=== PATIENT | male | born 1985 | race Caucasian/White ===

== ENCOUNTER 2022-07-07 15:38 | Emergency (ER) | payer OTHER, SELFPAY ==
--- NOTE | ~2022-07-07 | XR_ITS ---
EXAMINATION: XR hand RT min 3V INDICATION: Right hand swelling TECHNIQUE: Four views of the right hand are obtained. COMPARISON: None available FINDINGS: There are extensive erosions of the carpals, the metacarpal bases, at the distal first and second metacarpals, the bases of the first and second proximal phalanges, at the distal aspect of the second proximal phalanx, and at the distal aspect of the fourth proximal phalanx. There is a minimal ly displaced transverse fracture at the distal aspect of the fourth proximal phalanx. There is soft t issue swelling surrounding the second and fourth proximal interphalangeal joints. IMPRESSION: 1. 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 2. Acute fracture of the fourth proximal phalanx. Reviewed, dictated and finalized at location F.
[2022-07-07 15:50] VITALS: BP 139/83; PULSE 81; RESP 16; TEMP 36.7; O2SAT 100
--- NOTE | 2022-07-07 16:21 | ED.GENADULT ---
HPI - General Adult General Chief complaint: Extremity Injury, Upper Stated complaint: Finger Pain/Swelling Source: patient Mode of arrival: ambulatory Limitations: no limitations History of Present Illness HPI narrative: Patient presents for evaluation of pain and decreased range of motion in the 5th digit of the right hand. Symptom onset three days ago. he states he has a history of gout and has frequent flares. He recently ran out of his prednisone which he states he takes daily. He is still taking allopurinol and colchicine. He states pain is 8/10 in severity. He is right hand dominant. No paresthesias. He has chronic deformities and scarring noted to several digits of his hands bilaterally. He states he previously received hydrocodone but is no longer receiving it. Related Data Home Medications Medication Instructions Recorded Confirmed allopurinol 100 mg tablet mg 07/07/22 folic acid 1 mg tablet 07/07/22 indomethacin 50 mg capsule mg 07/07/22 prednisone 20 mg tablet mg 07/07/22 Allergies Allergy/AdvReac Type Severity Reaction Status Date / Time No Known Allergies Allergy Unverified 10/23/17 13:14 Review of Systems Review of Systems: CONSTITUTIONAL: Denies fever, chills, or sweats. EYES: Denies visual changes, redness, or discharge. ENT: Denies rhinorrhea, congestion, sore throat, or otalgia. CARDIOVASCULAR: Denies chest pain, palpitations, or edema. RESPIRATORY: Denies cough or dyspnea. GASTROINTESTINAL: Denies abdominal pain, nausea, vomiting, or diarrhea. GENITOURINARY: Denies dysuria or hematuria. SKIN: Denies rash or itching. MUSCULOSKELETAL: Reports pain and decreased range of motion in multiple digits of bilateral hands, most notable in the 5th digit of the right hand. NEUROLOGIC: Denies headache, numbness, dizziness, or weakness. PSYCHIATRIC: Denies anxiety or depression. FOR[facility]LY [facility] Past Medical History Medical History (Updated 07/07/22 @ 17:01 by JUAN Durbin, MAXX) Gout Proximal phalanx fracture of finger Surgical History Surgical History H/O hand surgery Family History Family History Mother Family history non-contributory Social History Social History Smoking packs per day: 0.5 Smoking cigarettes per day: 10.0 Smoking status: Current every day smoker Alcohol intake: never Substance use: never Living arrangements: with family Gender identity (if verbalized by the patient): Male Spiritual care concerns: No Exam Narrative: GENERAL: Well-appearing, well-nourished, and in no acute distress. HEAD: Normocephalic, atraumatic. EYES: PERRLA and EOMI. ENT: Nares clear, no rhinorrhea or epistaxis. Mucous membranes moist. Oropharynx without tonsillar hypertrophy exudate or other lesions. Bilateral TMs pearly key nonbulging NECK: Supple. No adenopathy or masses. No carotid bruits or JVD CHEST: Clear to auscultation. No respiratory distress. No wheezes rales or rhonchi HEART: Regular rate and rhythm. No murmur heard. Normal peripheral pulses. ABDOMEN: Soft, nontender, nondistended, normal active bowel sounds. EXTREMITIES: There is a visible deformity to the PIP joint of the left index finger. There is a deformity noted to PIP joint of 5th digit of right hand. There visible deformities to PIP in mental phalanx of 2nd digit of right hand. Decreased ROM of PIP and DIP joints of multiple digits of bilateral hands SKIN: Warm, dry, no rash. NEURO: No focal deficits. Alert and oriented x3. PSYCH: Normal mood and affect. Course Course Emergency Course: this is a 37-year-old male who presented for evaluation of pain in the 5th digit of the right hand. X-ray was obtained. Radiology reading indicated that there was a proximal phalanx fracture in the 4th digit. I attempt
== END 2022-07-07 17:10 | disposition home or self-care (01) ==
PROVIDERS: Emergency Provider Nurse Practitioner
DX: S62.614A Displaced fracture of proximal phalanx of right ring finger, initial encounter for closed fracture (principal); X58.XXXA Exposure to other specified factors, initial encounter; M10.9 Gout, unspecified; F17.210 Nicotine dependence, cigarettes, uncomplicated
CPT/HCPCS: 29130; 73130; 99204; G0463

== ENCOUNTER 2023-08-18 12:45 | Emergency (ER) | payer OTHER, SELFPAY ==
--- NOTE | ~2023-08-18 | XR_ITS ---
XR abdomen obstructive series Ordering provider: Sheree Landaverde NP History: . abdominal pain . Comparison: None. FINDINGS: BOWEL: Slightly dilated few small bowel loops in the upper abdomen. Otherwise, Nonobstructive bowel g as pattern. ORGANOMEGALY: None. SIGNIFICANT PATHOLOGIC CALCIFICATIONS: None. OTHER: No free air is seen under the diaphragm. IMPRESSION: NO definite ACUTE ABDOMINAL FINDINGS.. A few Dilated small bowel loops in the upper abdomen. Follow-u p advised. Reviewed, dictated and finalized at location A. IMPRESSION: NO definite ACUTE ABDOMINAL FINDINGS.. A few Dilated small bowel loops in the u pper abdomen. Follow-up advised.
[2023-08-18 12:48] VITALS: BP 122/89; PULSE 108; RESP 20; TEMP 36.4; O2SAT 98
--- NOTE | 2023-08-18 13:02 | ED.ABDPAIN ---
HPI - Abdominal Pain General Chief Complaint: Abdominal Pain Stated Complaint: Nausea/Abdominal Pain/Right Side Pain Time Seen by Provider: 08/18/23 13:00 Source: patient, family, RN notes reviewed and old records reviewed Mode of arrival: ambulatory Limitations: no limitations History of Present Illness HPI narrative: 38 year old male who presents to [facility] with complaints of abdominal pain across his lower to mid abdomen some to right lower abdomen at times since yesterday with nausea but no emesis or incidence of diarrhea, constipation,or fevers. Patient reports that he also has some right posterior shoulder pain denies any known injury. Patient has history of gout with deformities to hands and fingers. Patient reports that he takes gout medication and also methotrexate. Patient states he ate supper fine last night and started with nausea this morning, has had a few sips of tea today only. MD elicited complaint: abdominal pain Onset (ago): day(s) (day 2 of symptoms) Pain scale (0-10): 8 Treatments prior to arrival: other (none) Related Data Home Medications Medication Instructions Recorded Confirmed allopurinol 100 mg tablet mg 07/07/22 folic acid 1 mg tablet 07/07/22 indomethacin 50 mg capsule mg 07/07/22 prednisone 20 mg tablet mg 07/07/22 methotrexate sodium 7.5 mg tablet mg 08/18/23 (Trexall) Allergies Allergy/AdvReac Type Severity Reaction Status Date / Time No Known Allergies Allergy Unverified 10/23/17 13:14 Review of Systems Review of Systems: CONSTITUTIONAL: Denies fever, chills, or sweats. ENT: Denies rhinorrhea, congestion, sore throat, or otalgia. CARDIOVASCULAR: Denies chest pain, palpitations, or edema. RESPIRATORY: Denies cough or dyspnea. GASTROINTESTINAL: Reports pain across mid abdomen with pain at times in right lower abdomen,positive for nausea, no vomiting, diarrhea. GENITOURINARY: Denies dysuria or hematuria. SKIN: Denies rash or itching. MUSCULOSKELETAL: Denies back pain,positive for generalized joint pain, or myalgia, reports some posterior right shoulder discomfort without injury. NEUROLOGIC: Denies headache, numbness, or weakness. All systems reviewed & are unremarkable except as noted in HPI and below PMFSH Past Medical History Medical History Gout Proximal phalanx fracture of finger Surgical History Surgical History H/O hand surgery Family History Family History Mother Family history non-contributory Social History Social History Smoking packs per day: 0.5 Smoking cigarettes per day: 10.0 Smoking status: Current every day smoker Alcohol intake: never Substance use: never Living arrangements: with family Gender identity (if verbalized by the patient): Male Spiritual care concerns: No Comments At time of signature, agree with nursing past medical, surgical, social and family history. There is no relevant family history pertinent to the presenting complaint Exam Narrative: GENERAL: chronic ill -appearing, well-nourished, poor hygiene,and in no acute distress, color pale. HEAD: Normocephalic, atraumatic. EYES: PERRLA, conjunctivae clear, and EOMI. ENT: Nares clear. Mucous membranes moist. Oropharynx without edema, erythema, or lesions. Tonsils not enlarged and without exudate. NECK: Supple. No lymphadenopathy CHEST: Speaks in full sentences. No respiratory distress.SAO2 98% on room air HEART: Regular rate and rhythm. ABDOMEN: Soft,rounded, distended. No guarding, rebound tenderness, or rigid. No pulsatilla masses. Bowel sounds decreased in all four quadrants. No organomegaly. Negative Mayer?s sign. No periumbilical tenderness. No Supra public tenderness or distension. some palpable pain across his mid abdomen
[2023-08-18] MEDS: ONDANSETRON HCL ODT 4 MG TABLET SUBLINGUAL (13:08)
== END 2023-08-18 14:00 | disposition short-term general hospital (02) ==
PROVIDERS: Emergency Provider Registered Nurse
DX: R10.31 Right lower quadrant pain (principal); F17.210 Nicotine dependence, cigarettes, uncomplicated; M10.9 Gout, unspecified
CPT/HCPCS: 74019; 81003; 99213; A9270; G0463

== ENCOUNTER 2023-09-05 11:56 | Emergency (ER) | payer OTHER, SELFPAY ==
--- NOTE | ~2023-09-05 | XR_ITS ---
EXAMINATION: XR foot LT 2V DATE: 09/05/2023 13:31 INDICATION: Left great toe infection. TECHNIQUE: 2 views of left foot were obtained. COMPARISON: None. FINDINGS: Bone alignment is normal. No fracture. There are erosions at many of the midfoot joints and at first interphalangeal joints and fifth metatarsophalangeal joint. There is soft tissue swelling a round the ankle, midfoot, and first interphalangeal joint. IMPRESSION: 1. 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 Reviewed, dictated and finalized at location A.
[2023-09-05 12:10] VITALS: BP 121/70; PULSE 79; RESP 20; TEMP 36.5; O2SAT 98
--- NOTE | 2023-09-05 12:35 | ED.SKABFB ---
HPI - Skin/Abscess/Foreign Bdy General Chief complaint: Skin/Abscess/Foreign Body Stated complaint: Skin Sore Toe Time Seen by Provider: 09/05/23 12:36 Source: patient and RN notes reviewed Mode of arrival: ambulatory Limitations: dementia History of Present Illness HPI narrative: 38-year-old male presents concern for area on the 1st digit of his left foot that is red, swollen, draining purulent drainage. Reports he has had a cyst there for years and it suddenly became painful and started draining. Reports history of gout. He denies general malaise, fever, chills, sweats MD complaint: other (Redness) Related Data Home Medications Medication Instructions Recorded Confirmed allopurinol 100 mg tablet 100 mg PO DAILY 07/07/22 09/05/23 folic acid 1 mg tablet 1 mg PO DAILY 07/07/22 09/05/23 methotrexate sodium 7.5 mg tablet 7.5 mg PO DAILY 08/18/23 09/05/23 (Trexall) Allergies Allergy/AdvReac Type Severity Reaction Status Date / Time No Known Allergies Allergy Verified 09/05/23 12:18 Review of Systems Review of Systems: CONSTITUTIONAL: Denies malaise, chills, sweats, or fever. EYES: Denies redness, or discharge. ENT: Denies rhinorrhea, congestion, swollen lips, swollen tongue CARDIOVASCULAR: Denies chest pain, palpitations, or edema. RESPIRATORY: Denies cough or dyspnea. GASTROINTESTINAL: Denies abdominal pain, nausea, vomiting SKIN: Reports redness, swelling with drainage to assist on the 1st digit of his left foot. Denies vesicles, bullae, numbness, pain beyond proportion MUSCULOSKELETAL: Denies joint pain or myalgia. NEUROLOGIC: Denies headache. All systems reviewed & are unremarkable except as noted in HPI and below PMFSH Past Medical History Medical History Gout Proximal phalanx fracture of finger Surgical History Surgical History H/O hand surgery Family History Family History Mother Family history non-contributory Social History Social History Smoking packs per day: 0.5 Smoking cigarettes per day: 10.0 Smoking status: Current every day smoker Alcohol intake: never Substance use: never Living arrangements: with family Gender identity (if verbalized by the patient): Male Spiritual care concerns: No Comments At time of signature, agree with nursing past medical, surgical, social and family history. There is no relevant family history pertinent to the presenting complaint Exam Narrative: GENERAL: Well-appearing, well-nourished, and in no acute distress. HEAD: Normocephalic, atraumatic. EYES: PERRLA, conjunctivae clear ENT: Mucous membranes moist. NECK: Supple. No lymphadenopathy CHEST: Clear to auscultation. No respiratory distress. HEART: Regular rate and rhythm. SKIN: Warm, dry. Approximately 2 cm in diameter raised fluctuant area of Erythema, induration, tenderness, warmth with sharp margins noted 1st digit of the right foot proximal to the toenail. No vesicles, bullae, necrosis, ecchymosis, crepitus noted. NEURO: Alert and oriented x3. PSYCH: Normal mood and affect Course Course Emergency Course: Patient is aware of diagnosis, understands and agrees to treatment plan. Anticipatory guidance given. Patient agrees to follow-up as directed and is aware of reasons to seek care at the emergency department. Portions of this record may have been created with voice recognition software Level of Care: Express Care Visit Vital Signs Vital signs: Vital Signs Temperature 97.7 F 09/05/23 12:10 Pulse Rate 79 09/05/23 12:10 Respiratory Rate 20 09/05/23 12:10 Blood Pressure 121/70 09/05/23 12:10 Pulse Oximetry 98 09/05/23 12:10 Oxygen Delivery Room Air 09/05/23 12:10 Temperature 97.7 F 09/05/23 12:10 Pulse Rate 79
[2023-09-05] MEDS: LIDOCAINE HCL 1% LOCAL INJ 2 ML AMPUL 8 ML INFILTRATE (12:49)
--- NOTE | 2023-09-05 13:28 | PC.NURSE ---
GEOPOLITICS TEACHER ATTEMPTED TO DRAIN THE WOUND, NO FLUID WAS EXPRESSED. PT HAS BEEN TO XRAY AND IS AWAITING RESULTS AT THIS TIME. SIG OTHER AT BEDSIDE. WILL CONTINUE TO MONITOR.
--- NOTE | 2023-09-05 14:03 | PC.NURSE ---
WATER PROVIDED, INSPECTOR SUBASSEMBLIES AT BEDSIDE SPEAKING WITH PT AND SIG OTHER.
[2023-09-05 14:10] VITALS: BP 118/68; PULSE 70; RESP 18; O2SAT 99
== END 2023-09-05 14:10 | disposition home or self-care (01) ==
PROVIDERS: Emergency Provider Nurse Practitioner
DX: M10.9 Gout, unspecified (principal); F17.210 Nicotine dependence, cigarettes, uncomplicated
CPT/HCPCS: 10140; 73620; 99213; G0463

== ENCOUNTER 2024-05-29 11:18 | Emergency (ER) | payer OTHER, SELFPAY ==
--- NOTE | ~2024-05-29 | XR_ITS ---
XR hand LT min 3V 05/29/2024 12:01 Indication: Pain in the fifth metacarpal Procedure: 3 views left hand Comparison: No prior studies for comparison. Findings: There are erosive changes involving multiple metacarpal phalangeal and interphalangeal join ts as well as intercarpal joints. Degenerative change and erosions are most prominent at the first MC P, second MCP and PIP joints as well as the fifth PIP joint. There is soft tissue swelling of the sec ond-fifth digits. No foreign bodies. There is ankylosis of the second PIP joint with ventral subluxat ion of the proximal phalanges of the MCP joints of the second-fifth digits. Impression: 1: Advanced deformity of multiple intercarpal, metacarpophalangeal and interphalangeal joints with as sociated lucencies and erosions as well as ankylosis at the second PIP joint. This constellation of f indings is suspicious for inflammatory arthropathy such as rheumatoid arthritis or psoriasis. Clinica lly correlate. Infection is less favored in the absence of appropriate clinical findings. Reviewed, dictated and finalized at location B. Impression: 1: Advanced deformity of multiple intercarpal, metacarpophalangeal and interpha langeal joints with associated lucencies and erosions as well as ankylosis at t he second PIP joint. This constellation of findings is suspicious for inflammat ory arthropathy such as rheumatoid arthritis or psoriasis. Clinically correlate . Infection is less favored in the absence of appropriate clinical findings.
[2024-05-29 11:22] VITALS: BP 145/85; PULSE 91; RESP 20; TEMP 36.4; O2SAT 99
--- OUTSIDE RECORDS SUMMARY | 2024-05-29 11:22 | XMS_ITS | Encounter Summary ---
Author Organization [facility] Address [facility] [place] [address] Care Team Providers Care Delivery Manager Name Role Phone Sagar Yoo MD Primary Care Provider [phone] None, Provider Primary Care Provider Candice Malone MD Primary Care Provider [phone] Encounter Details Date Type Department Care Team (Latest Contact Info) Description 11/21/2017 Abstract [facility] Christian Matt MD Social History Tobacco Use Types Packs/Day Years Used Date Smoking Tobacco: Never Assessed Sex and Gender Information Value Date Recorded Sex Assigned at Not on file Legal Sex Male 5:33 PM CDT Gender Identity Not on file Sexual Orientation Not on file documented as of this encounter Plan of Treatment Not on file documented as of this encounter Visit Diagnoses Not on filedocumented in this encounter Care Teams Delivery Manager Relationship Specialty Start Date End Date Sagar Yoo MD [address] [address] PCP - General 07/05/16 10/22/23 None, ProviderMD PCP - General UNKNOWN PHYSICIAN SPECIALTY 10/23/23 10/23/23 Candice Shane MD [address] [place] [address] PCP - General FAMILY PRACTICE 10/24/23 documented as of this encounter
--- OUTSIDE RECORDS SUMMARY | 2024-05-29 11:22 | XMS_ITS | Data Portability ---
Author Organization [facility] Address [address] [place] [address] Assessment Encounter Date Assessment Date Assessment LastModified by Organization Details LastModified Time 02/13/2024 02/13/2024 William Vail is a 38y/o M with PMH of psoriatic arthritis, tophaceous gout, and tobacco use who presents today for 6-month follow up appointment. Pt's case was discussed w/resident. Documentation was reviewed, and I agree w/resident's note. Dr. Garner [email or web address] Not available 02/16/2024 16:05:30 Plan of Treatment Reminders Order Date Submit Date Provider Last Modified By Organization Details Last Modified Time Details Appointments ANY 30 2024 11:00A M STAN CHAMPAGNE, DO Not available Not available Not available Lab CBC w/ auto diff 2023 024 [facility], [address] [place] [address], [address], 08/06/2023 09:13:29 CMP, serum or plasma 2023 024 [facility], [address] [place] [address], [facility], [place], [address], 08/06/2023 09:13:27 vitamin B12 + folate, serum or blood 2023 024 [facility], [address] [facility], [facility], [place], [address], 08/06/2023 11:13:16 Referral physical therapist referral 2023 024 [email or web address] [facility], [address], [place], [address], 04/22/2024 10:16:45 podiatris t referral 2023 024 [email or web address] 1 Anny Almanzar DPM, [address], [place], [address], 02/20/2024 11:40:45 orthopedi c surgeon referral 2023 024 [email or web address] Montgomery PA-C, [address] [facility] , [address], [place], [address], 08/07/2023 10:43:03 Procedures None recorded. Surgeries None recorded. Imaging None recorded. Medication Orders Torriaredarya Arthritis Pain 1 % topical gel 2023 024 [facility][id number], [address] [place], [id number], 02/13/2024 17:35:48 cyclobenz aprine 10 mg tablet 2023 024 [facility]25696, [address] [facility], [id number], 02/13/2024 17:35:47 ibuprofen 800 mg tablet 2023 024 [facility] #10281, [address] [place], [place], [id number], 02/13/2024 17:17:44 allopurin ol 200 mg tablet 2023 024 [facility] #57148, [address] [facility], [id number], 08/05/2023 11:39:05 indometha michael ER 75 mg capsule,e xtended release 2023 024 [facility] #39396, [address] [place], [place], [id number], 02/13/2024 21:31:20 prednison e 5 mg tablet 2023 024 [email or web address] [facility] #28143, [address] [place], [place], [id number], 02/13/2024 17:17:20 Trexall 7.5 mg tablet 2023 024 [id number], [address] [place], [place], [id number], 08/05/2023 11:39:03 Patient TargetsNo targets recorded. Patient Instructions Encounter Date Encounter Id Patient Instructions Last Modified By Organization Details Last Modified Time 05/13/2023 [id number] I was present in the office and available during the visit. I discussed the patient s presentation, findings, assessment and plan with the resident during or immediately after the time of service. I agree with the resident s findings, assessment, and plan as documented in the note above. Antonio Hale MD. [facility] [email or web address] Not available 05/13/2023 15:55:47 08/05/2023 [id number] A healthy lifestyle: care instructions [email or web address] Not available 08/05/2023 11:52:02 Attending Physician Attestation I did not personally see or examine the patient with the resident. I was physically present to provide indirect supervision through entire encounter. I have reviewed the documentation and agree with the history, physical findings, work-up, and medical decision making as recorded. Bharat Leo MD [email or web address] Not available 08/05/2023 12:12:47 09/09/2023 [id number] A healthy lifestyle: care instructions Not available 09/09/2023 18:40:30 [email or web address] care instructions Not available 09/09/2023 18:40:30 Attending Physician Attestation I did not personally see or examine the patient with the resident. I was physically present to provide indirect supervision through entire encounter. I have reviewed the documentation and agree with the history, physical findings, work-up, and medical decision making as recorded. Bharat Leo MD [email or web address] Not available 09/09/2023 16:04:16 09/16/2023 [id number] A healthy lifestyle: care instructions [email or web address] Not available 09/16/2023 12:24:42 02/13/2024 [id number] back care and preventing injuries: care instructions [email or web address] Not available 02/13/2024 17:35:42 Reason for Referral Orthopedic Surgeon Referral for Gouty arthritis of left knee Referring Physician: Dane Steinberg, Credit Associate, Encounter Date: 05/13/2023 Production Administrator Referral for Paro nychia of toe of left foot Referring Physician: Olivia Reyes, Credit Associate, Encounter Date: 09/09/2023 Physical Therapist Referral for Low back pain Referring Physician: Candice Shane Credit Associate, Encounter Date: 02/13/2024 Results Created Date Observation Date Name Description Value Unit Range Abnormal Flag Note LastModifiedBy Organization Detail LastModifiedTime 08/05/19 24 08/06/2023 COMP. METAB OLIC PANEL (14) glucose 110 mg/dL 70-99 above high normal Not Available [facility] ([facility]) [address] [place], [address], 08/06/2023 09:13:27 08/05/19 24 08/06/2023 COMP. METAB OLIC PANEL (14) BUN 25 mg/dL 6-20 above high normal Not Available [facility] ([facility]) [address] [place], [address], 08/06/2023 09:13:27 08/05/19 24 08/06/2023 COMP. METAB OLIC PANEL (14) creatinine 1.58 mg/dL 0.76-1 .27 above high normal Not Available [facility] ([facility]) [address] [place], [address], 08/06/2023 09:13:27 08/05/19 24 08/06/2023 COMP. METAB OLIC PANEL (14) eGFR 57 mL/mi n/1.7 3 >59 below low normal Not Available [facility] ([place] [facility]) [address] [facility] [place], [address], 08/06/2023 09:13:27 08/05/19 24 08/06/2023 COMP. METAB OLIC PANEL (14) BUN/creatini ne ratio 16 9-20 Not Available [facility] ([place] [facility]) [address] [facility] [place], [address], 08/06/2023 09:13:27 08/05/19 24 08/06/2023 COMP. METAB OLIC PANEL (14) sodium 144 mmol/ L 134-14 4 Not Available [facility] ([place] [facility]) [address] [facility] [place], [address], 08/06/2023 09:13:27 08/05/19 24 08/06/2023 COMP. METAB OLIC PANEL (14) potassium 4.6 mmol/ L 3.5-5. 2 Not Available [facility] ([place] [facility]) [address] [facility] [place], [address], 08/06/2023 09:13:27 08/05/19 24 08/06/2023 COMP. METAB OLIC PANEL (14) chloride 109 mmol/ L 96-106 above high normal Not Available [facility] ([place] [facility]) [address] [facility] [place], [address], 08/06/2023 09:13:27 08/05/19 24 08/06/2023 COMP. METAB OLIC PANEL (14) carbon dioxide, total 22 mmol/ L 20-29 Not Available [facility] ([place] [facility]) [address] [facility] [place], [address], 08/06/2023 09:13:27 08/05/19 24 08/06/2023 COMP. METAB OLIC PANEL (14) calcium 9.5 mg/dL 8.7-10 .2 Not Available [facility] ([place] [facility]) [address] [facility], [place], [address], 08/06/2023 09:13:27 08/05/19 24 08/06/2023 COMP. METAB OLIC PANEL (14) protein, total 6.1 g/dL 6.0-8. 5 Not Available [facility] ([facility]) [address] [place], [address], 08/06/2023 09:13:27 08/05/19 24 08/06/2023 COMP. METAB OLIC PANEL (14) albumin 4.2 g/dL 4.1-5. 1 Not Available [facility] ([facility]) [address] [place], [address], 08/06/2023 09:13:27 08/05/19 24 08/06/2023 COMP. METAB OLIC PANEL (14) globulin, total 1.9 g/dL 1.5-4. 5 Not Available [facility] ([facility]) [address] [place], [address], 08/06/2023 09:13:27 08/05/19 24 08/06/2023 COMP. METAB OLIC PANEL (14) A/G ratio 2.2 1.2-2. 2 Not Available [facility] ([facility]) [address] [place], [address], 08/06/2023 09:13:27 08/05/19 24 08/06/2023 COMP. METAB OLIC PANEL (14) bilirubin, total 0.4 mg/dL 0.0-1. 2 Not Available [facility] ([facility]) [address] [place], [address], 08/06/2023 09:13:27 08/05/19 24 08/06/2023 COMP. METAB OLIC PANEL (14) alkaline phosphatase 122 IU/L 44-121 above high normal Not Available [facility] ([facility]) [address] [place], [address], 08/06/2023 09:13:27 08/05/19 24 08/06/2023 COMP. METAB OLIC PANEL (14) AST (SGOT) 28 IU/L 0-40 Not Available [facility] ([facility]) [address] [place], [address], 08/06/2023 09:13:27 08/05/19 24 08/06/2023 COMP. METAB OLIC PANEL (14) ALT (SGPT) 23 IU/L 0-44 Not Available [facility] ([facility]) [address] [facility] [place], [address], 08/06/2023 09:13:27 08/05/19 24 08/06/2023 CBC WITH DIFFE RENTI AL/PL ATELE T WBC 6.7 x10e3 /uL 3.4-10 .8 Not Available [facility] ([facility]) [address] [facility], [place], [address], 08/06/2023 09:13:29 08/05/19 24 08/06/2023 CBC WITH DIFFE RENTI AL/PL ATELE T RBC 4.65 x10e6 /uL 4.14-5 .80 Not Available [facility] ([facility]) [address] [facility] [place], [address], 08/06/2023 09:13:29 08/05/19 24 08/06/2023 CBC WITH DIFFE RENTI AL/PL ATELE T hemoglobin 14.4 g/dL 13.0-1 7.7 Not Available [facility] ([facility]) [address] [facility] [place], [address], 08/06/2023 09:13:29 08/05/19 24 08/06/2023 CBC WITH DIFFE RENTI AL/PL ATELE T hematocrit 43.8 % 37.5-5 1.0 Not Available [facility] ([facility]) [address] [facility] [place], [address], 08/06/2023 09:13:29 08/05/19 24 08/06/2023 CBC WITH DIFFE RENTI AL/PL ATELE T MCV 94 fL 79-97 Not Available [facility] ([facility]) [address] [facility], [place], [address], 08/06/2023 09:13:29 08/05/19 24 08/06/2023 CBC WITH DIFFE RENTI AL/PL ATELE T MCH 31.0 pg 26.6-3 3.0 Not Available [facility] ([facility]) [address] [facility], [place], [address], 08/06/2023 09:13:29 08/05/19 24 08/06/2023 CBC WITH DIFFE RENTI AL/PL ATELE T MCHC 32.9 g/dL 31.5-3 5.7 Not Available [facility] ([facility]) [address] [facility], [place], [address], 08/06/2023 09:13:29 08/05/19 24 08/06/2023 CBC WITH DIFFE RENTI AL/PL ATELE T RDW 15.7 % 11.6-1 5.4 above high normal Not Available [facility] ([facility]) [address] [place], [address], 08/06/2023 09:13:29 08/05/1908/06/2023 CBC WITH DIFFE RENTI AL/PL ATELE T platelets 140 x10e3 /uL 150-45 0 below low normal Not Available [facility] ([facility]) [address] [place], [address], 08/06/2023 09:13:29 08/05/19 24 08/06/2023 CBC WITH DIFFE RENTI AL/PL ATELE T neutrophils 64 % notest ab. Not Available [facility] ([facility]) [address] [place], [address], 08/06/2023 09:13:29 08/05/19 24 08/06/2023 CBC WITH DIFFE RENTI AL/PL ATELE T lymphs 28 % notest ab. Not Available [facility] ([facility]) [address] [facility], [place], [address], 08/06/2023 09:13:29 08/05/19 24 08/06/2023 CBC WITH DIFFE RENTI AL/PL ATELE T monocytes 5 % notest ab. Not Available [facility] ([facility]) [address] [facility], [place], [address], 08/06/2023 09:13:08/05/19 24 08/06/2023 CBC WITH DIFFE RENTI AL/PL ATELE T eos 2 % notest ab. Not Available [facility] ([facility]) [address] [facility], [place], [address], 08/06/2023 09:13:29 08/05/19 24 08/06/2023 CBC WITH DIFFE RENTI AL/PL ATELE T basos 1 % notest ab. Not Available [facility] ([facility]) [address] [facility], [place], [address], 08/06/2023 09:13:29 08/05/19 24 08/06/2023 CBC WITH DIFFE RENTI AL/PL ATELE T neutrophils (absolute) 4.3 x10e3 /uL 1.4-7. 0 Not Available [facility] ([facility]) [address] [facility], [place], [address], 08/06/2023 09:13:29 08/05/19 24 08/06/2023 CBC WITH DIFFE RENTI AL/PL ATELE T lymphs (absolute) 1.8 x10e3 /uL 0.7-3. 1 Not Available [facility] ([facility]) [address] [facility], [place], [address], 08/06/2023 09:13:29 08/05/19 24 08/06/2023 CBC WITH DIFFE RENTI AL/PL ATELE T monocytes(ab solute) 0.4 x10e3 /uL 0.1-0. 9 Not Available [facility] ([facility]) [address] [facility], [place], [address], 08/06/2023 09:13:29 08/05/19 24 08/06/2023 CBC WITH DIFFE RENTI AL/PL ATELE T eos (absolute) 0.2 x10e3 /uL 0.0-0. 4 Not Available [facility] ([facility]) [address] [facility], [place], [address], 08/06/2023 09:13:29 08/05/19 24 08/06/2023 CBC WITH DIFFE RENTI AL/PL ATELE T baso (absolute) 0.1 x10e3 /uL 0.0-0. 2 Not Available [facility] ([facility]) [address] [facility], [place], [address], 08/06/2023 09:13:29 08/05/19 24 08/06/2023 CBC WITH DIFFE RENTI AL/PL ATELE T immature granulocytes 0 % notest ab. Not Available [facility] ([facility]) [address] [facility], [place], [address], 08/06/2023 09:13:29 08/05/19 24 08/06/2023 CBC WITH DIFFE RENTI AL/PL ATELE T immature grans (abs) 0.0 x10e3 /uL 0.0-0. 1 Not Available [facility] ([facility]) [address] [place], [address], 08/06/2023 09:13:29 08/05/19 24 08/06/2023 VITAM IN B12 AND FOLAT E vitamin B12 405 pg/mL 232-12 45 Not Available [facility] ([facility]) [address] [place], [address], 08/06/2023 11:13:16 08/05/19 24 08/06/2023 VITAM IN B12 AND FOLAT E folate (folic acid), serum >20.0 NG/mL >3.0 A serum folat e nestor ntrat ion of less than 3.1 ng/mL is consi dered to repre sent clini dutch defic iency . Not Available [facility] ([facility]) [address] [facility], [place], [address], 08/06/2023 11:13:16 08/13/19 24 08/14/2023 COMP. METAB OLIC PANEL (14) glucose 90 mg/dL 70-99 Not Available [facility] ([facility]) [address] [place], [address], 08/14/2023 13:11:24 08/13/19 24 08/14/2023 COMP. METAB OLIC PANEL (14) BUN 14 mg/dL 6-20 Not Available [facility] ([facility]) [address] [facility], [place], [address], 08/14/2023 13:11:24 08/13/19 24 08/14/2023 COMP. METAB OLIC PANEL (14) creatinine 1.58 mg/dL 0.76-1 .27 above high normal Not Available [facility] ([facility]) [address] [place], [address], 08/14/2023 13:11:24 08/13/19 24 08/14/2023 COMP. METAB OLIC PANEL (14) eGFR 57 mL/mi n/1.7 3 >59 below low normal Not Available [facility] ([facility]) [address] [place], [address], 08/14/2023 13:11:24 08/13/19 24 08/14/2023 COMP. METAB OLIC PANEL (14) BUN/creatini ne ratio 9 9-20 Not Available [facility] ([place] [facility]) [address] [facility], [address], 08/14/2023 13:11:24 08/13/19 24 08/14/2023 COMP. METAB OLIC PANEL (14) sodium 144 mmol/ L 134-14 4 Not Available [facility] ([facility]) [address] [place], [address], 08/14/2023 13:11:24 08/13/19 24 08/14/2023 COMP. METAB OLIC PANEL (14) potassium 4.9 mmol/ L 3.5-5. 2 Not Available [facility] ([facility]) [address] [facility] [place], [address], 08/14/2023 13:11:24 08/13/19 24 08/14/2023 COMP. METAB OLIC PANEL (14) chloride 107 mmol/ L 96-106 above high normal Not Available [facility] ([facility]) [address] [facility] [place], [address], 08/14/2023 13:11:24 08/13/19 24 08/14/2023 COMP. METAB OLIC PANEL (14) carbon dioxide, total 20 mmol/ L 20-29 Not Available [facility] ([facility]) [address] [facility] [place], [address], 08/14/2023 13:11:24 08/13/19 24 08/14/2023 COMP. METAB OLIC PANEL (14) calcium 9.6 mg/dL 8.7-10 .2 Not Available [facility] ([facility]) [address] [facility] [place], [address], 08/14/2023 13:11:24 08/13/19 24 08/14/2023 COMP. METAB OLIC PANEL (14) protein, total 6.2 g/dL 6.0-8. 5 Not Available [facility] ([facility]) [address] [facility] [place], [address], 08/14/2023 13:11:24 08/13/19 24 08/14/2023 COMP. METAB OLIC PANEL (14) albumin 4.4 g/dL 4.1-5. 1 Not Available [facility] ([facility]) [address] [facility] [place], [address], 08/14/2023 13:11:24 08/13/19 24 08/14/2023 COMP. METAB OLIC PANEL (14) globulin, total 1.8 g/dL 1.5-4. 5 Not Available [facility] ([facility]) [address] [facility] [place], [address], 08/14/2023 13:11:24 08/13/19 24 08/14/2023 COMP. METAB OLIC PANEL (14) A/G ratio 2.4 1.2-2. 2 above high normal Not Available [facility] ([facility]) [address] [facility] [place], [address], 08/14/2023 13:11:24 08/13/19 24 08/14/2023 COMP. METAB OLIC PANEL (14) bilirubin, total 0.6 mg/dL 0.0-1. 2 Not Available [facility] ([facility]) [address] [facility] [place], [address], 08/14/2023 13:11:24 08/13/19 24 08/14/2023 COMP. METAB OLIC PANEL (14) alkaline phosphatase 137 IU/L 44-121 above high normal Not Available [facility] ([facility]) [address] [facility] [place], [address], 08/14/2023 13:11:24 08/13/19 24 08/14/2023 COMP. METAB OLIC PANEL (14) AST (SGOT) 33 IU/L 0-40 Not Available [facility] ([facility]) [address] [facility] [place], [address], 08/14/2023 13:11:24 08/13/19 24 08/14/2023 COMP. METAB OLIC PANEL (14) ALT (SGPT) 36 IU/L 0-44 Not Available [facility] ([facility]) [address] [facility], [place], [address], 08/14/2023 13:11:24 10/23/19 24 10/27/2023 Bacte vikki ident ified in Wound by Aerob e cultu re specimen source identified TOE,LE FT SPEC DESCR IPTIO N TOE,L EFT 10/22 7:58 PM CDT [facility] Not Available Not Available 05/07/2024 17:56:46 10/23/19 24 10/27/2023 Bacte vikki ident ified in Wound by Aerob e cultu re service comment NO SPECIA L REQUES T SPECI AL REQUE STS NO SPECI AL REQUE ST 10/22 7:58 PM CDT [facility] Not Available Not Available 05/07/2024 17:56:46 10/23/19 24 10/27/2023 Bacte vikki ident ified in Wound by Aerob e cultu re microscopic observation [identifier] in specimen by gram stain NO WHITE BLOOD CELLS SEEN GRAM STAIN RESUL T NO WHITE BLOOD CELLS SEEN 10/23 11:56 AM CDT [facility] Not Available Not Available 05/07/2024 17:56:46 10/23/19 24 10/27/2023 Bacte vikki ident ified in Wound by Aerob e cultu re microscopic observation [identifier] in specimen by gram stain NO ORGANI SMS SEEN GRAM STAIN RESUL T NO ORGAN ISMS SEEN 10/23 11:56 AM CDT [facility] Not Available Not Available 05/07/2024 17:56:46 10/23/19 24 10/27/2023 Bacte vikki ident ified in Wound by Aerob e cultu re bacteria identified in specimen by culture NO GROWTH 3 DAYS CULTU RE RESUL T NO GROWT H 3 DAYS 10/26 10:51 AM CDT [facility] Not Available Not Available 05/07/2024 17:56:46 10/23/19 24 10/27/2023 Bacte vikki ident ified in Wound by Aerob e cultu re bacteria identified in specimen by culture NOTE: WOUND AND TISSUE CULTUR ES ARE ROUTIN DEXTER SCREEN ED FOR AEROBI C ORGANI SMS ONLY. CULTU RE RESUL T NOTE: WOUND AND TISSU E CULTU RES ARE ALIDA MICHAEL FOR AEROB IC ORGAN ISMS ONLY. 10/26 10:51 AM CDT [facility] Not Available Not Available 05/07/2024 17:56:46 10/23/19 24 10/23/2023 C react ekaterina prote in [Mass /volu me] in Serum or Plasm a C reactive protein [mass/volume ] in serum or plasma 2.94 mg/dL high: 0.29mg /dL high C-ZACK CTIVE PROTE IN 2.94 (H) <0.29 mg/dL 10/22 5:01 PM CDT [facility] Not Available Not Available 05/07/2024 17:56:46 10/23/19 24 10/23/2023 C react ekaterina prote in [Mass /volu me] in Serum or Plasm a interpretati on and review of laboratory results Abnorm al Not Available Not Available 17:56:46 10/23/19 24 10/23/2023 Compr ehens ekaterina metab olic 1999 panel - Serum or Plasm a glucose [mass/volume ] in serum or plasma 156 text: 70 - 99 mg/dL high GLUCO SE 156 (H) 70 - 99 MG/DL 10/22 5:01 PM CDT [facility] Not Available Not Available 05/07/2024 17:56:46 10/23/19 24 10/23/2023 Compr ehens ekaterina metab olic 1999 panel - Serum or Plasm a urea nitrogen [mass/volume ] in serum or plasma 15 text: 7 - 18 mg/dL BUN 15 7 - 18 MG/DL 10/22 5:01 PM CDT [facility] Not Available Not Available 05/07/2024 17:56:46 10/23/19 24 10/23/2023 Compr ehens ekaterina metab olic 1999 panel - Serum or Plasm a creatinine [mass/volume ] in serum or plasma 1.46 text: 0.7 - 1.3 mg/dL high CREAT ININE S/P/B 1.46 (H) 0.7 - 1.3 MG/DL 10/22 5:01 PM CDT [facility] Not Available Not Available 05/07/2024 17:56:46 10/23/19 24 10/23/2023 Compr ehens ekaterina metab olic 1999 panel - Serum or Plasm a sodium [moles/volum e] in serum or plasma 143 text: 136 - 145 mmol/L SODIU M S/P/B 143 136 - 145 MMOL/ L 10/22 5:01 PM CDT [facility] Not Available Not Available 05/07/2024 17:56:46 10/23/19 24 10/23/2023 Compr ehens ekaterina metab olic 2000 panel - Serum or Plasm a potassium [moles/volum e] in serum or plasma 4.3 text: 3.5 - 5.1 mmol/L POTAS SIUM S/P/B 4.3 3.5 - 5.1 MMOL/ L 10/22 5:01 PM CDT [facility] Not Available Not Available 05/07/2024 17:56:46 10/23/19 24 10/23/2023 Compr ehens ekaterina metab olic 2000 panel - Serum or Plasm a chloride [moles/volum e] in serum or plasma 112 text: 100 - 108 mmol/L high CHLOR UMAIR S/P/B 112 (H) 100 - 108 MMOL/ L 10/22 5:01 PM CDT [facility] Not Available Not Available 05/07/2024 17:56:46 10/23/19 24 10/23/2023 Compr ehens ekaterina metab olic 2000 panel - Serum or Plasm a carbon dioxide, total [moles/volum e] in serum or plasma 26.4 text: 21 - 32 mmol/L CO2 26.4 21 - 32 MMOL/ L 10/22 5:01 PM CDT [facility] Not Available Not Available 05/07/2024 17:56:46 10/23/19 24 10/23/2023 Compr ens ekaterina metab olic 1999 panel - Serum or Plasm a calcium [mass/volume ] in serum or plasma 10 text: 8.5 - 10.1 mg/dL CALCI UM S/P/B 10.0 8.5 - 10.1 MG/DL 10/22 5:01 PM CDT [facility] Not Available Not Available 05/07/2024 17:56:46 10/23/19 24 10/23/2023 Compr ens ekaterina metab olic 2000 panel - Serum or Plasm a bilirubin.to ted [mass/volume ] in serum or plasma 0.8 text: 0.2 - 1.2 mg/dL BILIR UBIN TOTAL S/P/B 0.8 0.2 - 1.2 MG/DL 10/22 5:01 PM CDT [facility] Not Available Not Available 05/07/2024 17:56:46 10/23/19 24 10/23/2023 Compr ens ekaterina metab olic 2000 panel - Serum or Plasm a protein [mass/volume ] in serum or plasma 7.2 text: 6.4 - 8.2 g/dL TOTAL PROTE IN S/P/B 7.2 6.4 - 8.2 G/DL 10/22 5:01 PM CDT [facility] Not Available Not Available 05/07/2024 17:56:46 10/23/19 24 10/23/2023 Compr ens ekaterina metab olic 2000 panel - Serum or Plasm a albumin [mass/volume ] in serum or plasma 3.7 text: 3.4 - 5.0 g/dL ALBUM IN S/P/B 3.7 3.4 - 5.0 G/DL 10/22 5:01 PM CDT [facility] Not Available Not Available 05/07/2024 17:56:46 10/23/19 24 10/23/2023 Compr ehens ekaterina metab olic 1999 panel - Serum or Plasm a aspartate aminotransfe rase [enzymatic activity/vol ume] in serum or plasma 49 U/L low: 15U/Lh igh: 37U/L high AST 49 (H) 15 - 37 U/L 10/22 5:01 PM CDT [facility] Not Available Not Available 05/07/2024 17:56:46 10/23/19 24 10/23/2023 Compr ehens ekaterina metab olic 2000 panel - Serum or Plasm a alanine aminotransfe rase [enzymatic activity/vol ume] in serum or plasma 57 U/L low: 16U/Lh igh: 60U/L ALT 57 16 - 60 U/L 10/22 5:01 PM CDT [facility] Not Available Not Available 05/07/2024 17:56:46 10/23/19 24 10/23/2023 Compr ehens ekaterina metab olic 1999 panel - Serum or Plasm a alkaline phosphatase [enzymatic activity/vol ume] in serum or plasma 158 U/L low: 50U/Lh igh: 136U/L high ALKAL INE PHOSP HATAS E S/P/B 158 (H) 50 - 136 U/L 10/22 5:01 PM CDT [facility] Not Available Not Available 05/07/2024 17:56:46 10/23/19 24 10/23/2023 Compr ehens ekaterina metab olic 2000 panel - Serum or Plasm a anion gap in serum or plasma 4.6 text: 5 - 15 mmol/L low ANION GAP 4.6 (L) 5 - 15 MMOL/ L 10/22 5:01 PM CDT [facility] Not Available Not Available 05/07/2024 17:56:46 10/23/19 24 10/23/2023 Compr ehens ekaterina metab olic 1999 panel - Serum or Plasm a urea nitrogen/cre atinine [mass ratio] in serum or plasma 10.3 low: 6high: 26 BUN CREAT ININE RATIO 10.3 6 - 26 10/22 5:01 PM CDT [facility] Not Available Not Available 05/07/2024 17:56:46 10/23/19 24 10/23/2023 Compr ens ekaterina metab olic 2000 panel - Serum or Plasm a albumin/glob ulin [mass ratio] in serum or plasma 1.1 text: 1.0 - 2.0 ratio A/G RATIO 1.1 1.0 - 2.0 RATIO 10/22 5:01 PM CDT [facility] Not Available Not Available 05/07/2024 17:56:46 10/23/19 24 10/23/2023 Compr ehens ekaterina metab olic 2000 panel - Serum or Plasm a glomerular filtration rate/1.73 sq M.predicted [volume rate/area] in serum, plasma or blood by creatinine-b ased formula (CKD-epi 2020) 63 text: >90 mL/min /1.73 M2 low GFR ESTIM ATE 63 (L) >90 ML/MS N/1.7 3 M2 10/22 5:01 PM CDT [facility] Not Available Not Available 05/07/2024 17:56:46 10/23/19 24 10/23/2023 Compr [employer] ekaterina metab olic 2000 panel - Serum or Plasm a interpretati on and review of laboratory results Abnorm al Not Available Not Available 17:56:46 10/23/19 24 10/23/2023 Eryth rocyt e sedim entat ion rate erythrocyte sedimentatio n rate 18 text: <15 mm/HR high ESR 18 (H) <15 MM/HR 10/22 5:03 PM CDT [facility] Not Available Not Available 05/07/2024 17:56:46 10/23/19 24 10/23/2023 Eryth rocyt e sedim entat ion rate interpretati on and review of laboratory results Abnorm al Not Available Not Available 17:56:46 10/23/19 24 10/23/2023 CBC W Auto Diffe renti al panel - Blood leukocytes [#/volume] in blood by automated count 12.62 text: 4.5 - 11.0 x10'3/ uL high WBC 12.62 (H) 4.5 - 11.0 x10'3 /uL 10/22 4:58 PM CDT [facility] Not Available Not Available 05/07/2024 17:56:45 10/23/19 24 10/23/2023 CBC W Auto Diffe renti al panel - Blood erythrocytes [#/volume] in blood by automated count 4.89 text: 4.70 - 6.10 x10'6/ uL RBC 4.89 4.70 - 6.10 x10'6 /uL 10/22 4:58 PM CDT [facility] Not Available Not Available 05/07/2024 17:56:45 10/23/19 24 10/23/2023 CBC W Auto Diffe renti al panel - Blood hemoglobin [mass/volume ] in blood 14 text: 14.0 - 18.0 g/dL HGB 14.0 14.0 - 18.0 G/DL 10/22 4:58 PM CDT [facility] Not Available Not Available 05/07/2024 17:56:45 10/23/19 24 10/23/2023 CBC W Auto Diffe renti al panel - Blood hematocrit [volume fraction] of blood 44.8 % low: 43%hig h: 54% HCT 44.8 43.0 - 54.0 % 10/22 4:58 PM CDT [facility] Not Available Not Available 05/07/2024 17:56:45 10/23/19 24 10/23/2023 CBC W Auto Diffe renti al panel - Blood MCV [entitic volume] 91.6 text: 80.0 - 94.0 fL MCV 91.6 80.0 - 94.0 FL 10/22 4:58 PM CDT [facility] Not Available Not Available 05/07/2024 17:56:45 10/23/19 24 10/23/2023 CBC W Auto Diffe renti al panel - Blood MCH [entitic mass] 28.6 pg low: 27pghi gh: 31pg MCH 28.6 27.0 - 31.0 PG 10/22 4:58 PM CDT [facility] Not Available Not Available 05/07/2024 17:56:45 10/23/19 24 10/23/2023 CBC W Auto Diffe renti al panel - Blood MCHC [mass/volume ] 31.3 text: 32.0 - 36.0 g/dL low MCHC 31.3 (L) 32.0 - 36.0 G/DL 10/22 4:58 PM CDT [facility] Not Available Not Available 05/07/2024 17:56:45 10/23/19 24 10/23/2023 CBC W Auto Diffe renti al panel - Blood erythrocyte distribution width [entitic volume] by automated count 15.1 % low: 11.5%h igh: 14.5% high RDW 15.1 (H) 11.5 - 14.5 % 10/22 4:58 PM CDT [facility] Not Available Not Available 05/07/2024 17:56:45 10/23/19 24 10/23/2023 CBC W Auto Diffe renti al panel - Blood platelets [#/volume] in blood 158 text: 130 - 400 x10'3/ uL PLT 158 130 - 400 x10'3 /uL 10/22 4:58 PM CDT [facility] Not Available Not Available 05/07/2024 17:56:45 10/23/19 24 10/23/2023 CBC W Auto Diffe renti al panel - Blood platelet mean volume [entitic volume] in blood 13 text: 9.3 - 12.2 fL high MPV 13.0 (H) 9.3 - 12.2 FL 10/22 4:58 PM CDT [facility] Not Available Not Available 05/07/2024 17:56:45 10/23/19 24 10/23/2023 CBC W Auto Diffe renti al panel - Blood differential cell count method - blood AUTOMA CAROLYN DIFFER ENTIAL DIFFE RENTI AL TYPE AUTOM ATED DIFFE RENTI AL 10/22 4:58 PM CDT [facility] Not Available Not Available 05/07/2024 17:56:45 10/23/19 24 10/23/2023 CBC W Auto Diffe renti al panel - Blood neutrophils/ 100 leukocytes in blood by automated count 91.4 % NEUTR OPHIL S % 91.4 % 10/22 4:58 PM CDT [facility] Not Available Not Available 05/07/2024 17:56:45 10/23/19 24 10/23/2023 CBC W Auto Diffe renti al panel - Blood lymphocytes/ 100 leukocytes in blood by automated count 6.3 % LYMPH OCYTE S % 6.3 % 10/22 4:58 PM CDT [facility] Not Available Not Available 05/07/2024 17:56:45 10/23/19 24 10/23/2023 CBC W Auto Diffe renti al panel - Blood monocytes/10 0 leukocytes in blood by automated count 1.8 % MONOC YTES % 1.8 % 10/22 4:58 PM CDT [facility] Not Available Not Available 05/07/2024 17:56:45 10/23/19 24 10/23/2023 CBC W Auto Diffe renti al panel - Blood eosinophils/ 100 leukocytes in blood by automated count 0 % EOSIN OPHIL S 0.0 % 10/22 4:58 PM CDT [facility] Not Available Not Available 05/07/2024 17:56:45 10/23/19 24 10/23/2023 CBC W Auto Diffe renti al panel - Blood basophils/10 0 leukocytes in blood by automated count 0 % BASOP HILS 0.0 % 10/22 4:58 PM CDT [facility] Not Available Not Available 05/07/2024 17:56:45 10/23/19 24 10/23/2023 CBC W Auto Diffe renti al panel - Blood immature granulocytes /100 leukocytes in blood by automated count 0.5 % IMMAT URE GRANS % 0.5 % 10/22 4:58 PM CDT [facility] Not Available Not Available 05/07/2024 17:56:45 10/23/19 24 10/23/2023 CBC W Auto Diffe renti al panel - Blood neutrophils [#/volume] in blood 11.53 text: 1.80 - 7.70 x10'3/ uL high ABS. NEUTR OPHIL S 11.53 (H) 1.80 - 7.70 x10'3 /uL 10/22 4:58 PM CDT [facility] Not Available Not Available 05/07/2024 17:56:45 10/23/19 24 10/23/2023 CBC W Auto Diffe renti al panel - Blood lymphocytes [#/volume] in blood 0.8 text: 1.00 - 4.80 x10'3/ uL low ABS. LYMPH OCYTE S 0.80 (L) 1.00 - 4.80 x10'3 /uL 10/22 4:58 PM CDT [facility] Not Available Not Available 05/07/2024 17:56:45 10/23/19 24 10/23/2023 CBC W Auto Diffe renti al panel - Blood monocytes [#/volume] in blood 0.23 text: 0.30 - 0.82 x10'3/ uL low ABS. MONOC YTES 0.23 (L) 0.30 - 0.82 x10'3 /uL 10/22 4:58 PM CDT [facility] Not Available Not Available 05/07/2024 17:56:45 10/23/19 10/23/2023 CBC W Auto Diffe renti al panel - Blood eosinophils [#/volume] in blood 0 text: 0.04 - 0.54 x10'3/ uL low ABS. EOSIN OPHIL S 0.00 (L) 0.04 - 0.54 x10'3 /uL 10/22 4:58 PM CDT [facility] Not Available Not Available 05/07/2024 17:56:45 10/23/19 24 10/23/2023 CBC W Auto Diffe renti al panel - Blood basophils [#/volume] in blood 0 text: 0.01 - 0.08 x10'3/ uL low ABS. BASOP HILS 0.00 (L) 0.01 - 0.08 x10'3 /uL 10/22 4:58 PM CDT [facility] Not Available Not Available 05/07/2024 17:56:45 10/23/19 24 10/23/2023 CBC W Auto Diffe renti al panel - Blood immature granulocytes [#/volume] in blood 0.06 text: 0.00 - 0.49 x10'3/ uL ABS. IMMAT URE GRANU LOCYT ES 0.06 0.00 - 0.49 x10'3 /uL 10/22 4:58 PM CDT [facility] Not Available Not Available 05/07/2024 17:56:45 10/23/19 24 10/23/2023 CBC W Auto Diffe renti al panel - Blood interpretati on and review of laboratory results Abnorm al Not Available Not Available 17:56:45 10/24/19 24 10/29/2023 Bacte vikki ident ified in Speci men by Anaer obe cultu re specimen source identified FOOT,L EFT SPEC DESCR IPTIO N FOOT, LEFT 10/23 12:57 PM CDT [facility] Not Available Not Available 05/07/2024 17:56:46 10/24/19 24 10/29/2023 Bacte vikki ident ified in Speci men by Anaer obe cultu re service comment NO SPECIA L REQUES T SPECI AL REQUE STS NO SPECI AL REQUE ST 10/23 12:57 PM CDT [facility] Not Available Not Available 05/07/2024 17:56:46 10/24/19 24 10/29/2023 Bacte vikki ident ified in Speci men by Anaer obe cultu re microscopic observation [identifier] in specimen by gram stain NO WHITE BLOOD CELLS SEEN GRAM STAIN RESUL T NO WHITE BLOOD CELLS SEEN 10/23 6:11 PM CDT [facility] Not Available Not Available 05/07/2024 17:56:46 10/24/19 24 10/29/2023 Bacte vikki ident ified in Speci men by Anaer obe cultu re microscopic observation [identifier] in specimen by gram stain MANY RED BLOOD CELLS SEEN GRAM STAIN RESUL T MANY RED BLOOD CELLS SEEN 10/23 6:11 PM CDT [facility] Not Available Not Available 05/07/2024 17:56:46 10/24/19 24 10/29/2023 Bacte vikki ident ified in Speci men by Anaer obe cultu re microscopic observation [identifier] in specimen by gram stain FEW GRAM POSITI VE COCCI GRAM STAIN RESUL T FEW GRAM POSIT EKATERINA COCCI 10/23 6:11 PM CDT [facility] Not Available Not Available 05/07/2024 17:56:46 10/24/19 24 10/29/2023 Bacte vikki ident ified in Speci men by Anaer obe cultu re bacteria identified in specimen by culture HEAVY GROWTH OF NORMAL SKIN TIFFANIE, SUSCEP TIBILI TIES NOT ROUTIN DEXTER PERFOR MED. CULTU RE RESUL T HEAVY GROWT H OF MC L SKIN TIFFANIE , SUSCE PTIBI LITIE S NOT ROUTI VERA PERFO RMED. 10/28 7:15 AM CDT [facility] Not Available Not Available 05/07/2024 17:56:46 08/16/10/29/2023 Bacte vikki ident ified in Speci men by Anaer obe cultu re bacteria identified in specimen by culture NOTE: ANAERO BIC CULTUR ES ARE ROUTIN DEXTER SCREEN ED FOR BOTH AEROBI C AND ANAERO BIC ORGANI SMS. CULTU RE RESUL T NOTE: ANAER OBIC CULTU RES ARE ROUTI VERA SCREE ALEC FOR BOTH AEROB IC AND ANAER OBIC ORGAN ISMS. 10/28 7:15 AM CDT [facility] Not Available Not Available 05/07/2024 17:56:46 10/24/19 24 10/24/2023 Proca lcito karissa [Mass /volu me] in Serum or Plasm a procalcitoni n [mass/volume ] in serum or plasma text: 0.00 - 0.49 NG/mL Proca lcito karissa <0.05 0.00 - 0.49 NG/ML 10/23 10:52 AM CDT [facility] Not Available Not Available 05/07/2024 17:56:46 10/24/19 24 10/24/2023 Urate [Mass /volu me] in Serum or Plasm a urate [mass/volume ] in serum or plasma 7.5 text: 3.5 - 7.2 mg/dL high URIC ACID 7.5 (H) 3.5 - 7.2 MG/DL 10/23 10:35 AM CDT [facility] Not Available Not Available 05/07/2024 17:56:46 10/24/19 24 10/24/2023 Urate [Mass /volu me] in Serum or Plasm a interpretati on and review of laboratory results Abnorm al Not Available Not Available 17:56:46 10/24/19 24 10/24/2023 Basic metab olic 2000 panel - Serum or Plasm a glucose [mass/volume ] in serum or plasma 135 text: 70 - 99 mg/dL high GLUCO SE 135 (H) 70 - 99 MG/DL 10/23 6:33 AM CDT [facility] Not Available Not Available 05/07/2024 17:56:46 10/24/19 24 10/24/2023 Basic metab olic 1999 panel - Serum or Plasm a urea nitrogen [mass/volume ] in serum or plasma 20 text: 7 - 18 mg/dL high BUN 20 (H) 7 - 18 MG/DL 10/23 6:33 AM CDT [facility] Not Available Not Available 05/07/2024 17:56:46 10/24/19 24 10/24/2023 Basic metab olic 1999 panel - Serum or Plasm a creatinine [mass/volume ] in serum or plasma 1.31 text: 0.7 - 1.3 mg/dL high CREAT ININE S/P/B 1.31 (H) 0.7 - 1.3 MG/DL 10/23 6:33 AM CDT [facility] Not Available Not Available 05/07/2024 17:56:46 10/24/19 24 10/24/2023 Basic metab olic 1999 panel - Serum or Plasm a sodium [moles/volum e] in serum or plasma 146 text: 136 - 145 mmol/L high SODIU M S/P/B 146 (H) 136 - 145 MMOL/ L 10/23 6:33 AM CDT [facility] Not Available Not Available 05/07/2024 17:56:46 10/24/19 24 10/24/2023 Basic metab olic 1999 panel - Serum or Plasm a potassium [moles/volum e] in serum or plasma 4.6 text: 3.5 - 5.1 mmol/L POTAS SIUM S/P/B 4.6 3.5 - 5.1 MMOL/ L 10/23 6:33 AM CDT [facility] Not Available Not Available 05/07/2024 17:56:46 10/24/19 24 10/24/2023 Basic metab olic 2000 panel - Serum or Plasm a chloride [moles/volum e] in serum or plasma 114 text: 100 - 108 mmol/L high CHLOR UMAIR S/P/B 114 (H) 100 - 108 MMOL/ L 10/23 6:33 AM CDT [facility] Not Available Not Available 05/07/2024 17:56:46 10/24/19 24 10/24/2023 Basic metab olic 1999 panel - Serum or Plasm a carbon dioxide, total [moles/volum e] in serum or plasma 31 text: 21 - 32 mmol/L CO2 31.0 21 - 32 MMOL/ L 10/23 6:33 AM CDT [facility] Not Available Not Available 05/07/2024 17:56:46 10/24/19 24 10/24/2023 Basic metab olic 1999 panel - Serum or Plasm a calcium [mass/volume ] in serum or plasma 9.2 text: 8.5 - 10.1 mg/dL CALCI UM S/P/B 9.2 8.5 - 10.1 MG/DL 10/23 6:33 AM CDT [facility] Not Available Not Available 05/07/2024 17:56:46 10/24/19 24 10/24/2023 Basic metab olic 2000 panel - Serum or Plasm a anion gap in serum or plasma 1 text: 5 - 15 mmol/L low ANION GAP 1.0 (L) 5 - 15 MMOL/ L 10/23 6:33 AM T [facility] Not Available Not Available 05/07/2024 17:56:46 10/24/19 24 10/24/2023 Basic metab olic 1999 panel - Serum or Plasm a urea nitrogen/cre atinine [mass ratio] in serum or plasma 15.3 low: 6high: 26 BUN CREAT ININE RATIO 15.3 6 - 26 10/23 6:33 AM CDT [facility] Not Available Not Available 05/07/2024 17:56:46 10/24/19 24 10/24/2023 Basic metab olic 2000 panel - Serum or Plasm a glomerular filtration rate/1.73 sq M.predicted [volume rate/area] in serum, plasma or blood by creatinine-b ased formula (CKD-epi 2020) 72 text: >90 mL/min /1.73 M2 low GFR ESTIM ATE 72 (L) >90 ML/MS N/1.7 3 M2 10/23 6:33 AM CDT [facility] Not Available Not Available 05/07/2024 17:56:46 10/24/19 24 10/24/2023 Basic metab olic 2000 panel - Serum or Plasm a interpretati on and review of laboratory results Abnorm al Not Available Not Available 17:56:46 10/24/19 24 10/24/2023 CBC W Auto Diffe renti al panel - Blood leukocytes [#/volume] in blood by automated count 8.81 text: 4.5 - 11.0 x10'3/ uL WBC 8.81 4.5 - 11.0 x10'3 /uL 10/23 6:59 AM CDT [facility] Not Available Not Available 05/07/2024 17:56:46 10/24/19 24 10/24/2023 CBC W Auto Diffe renti al panel - Blood erythrocytes [#/volume] in blood by automated count 4.5 text: 4.70 - 6.10 x10'6/ uL low RBC 4.50 (L) 4.70 - 6.10 x10'6 /uL 10/23 6:59 AM CDT [facility] Not Available Not Available 05/07/2024 17:56:46 10/24/19 24 10/24/2023 CBC W Auto Diffe renti al panel - Blood hemoglobin [mass/volume ] in blood 13 text: 14.0 - 18.0 g/dL low HGB 13.0 (L) 14.0 - 18.0 G/DL 10/23 6:59 AM CDT [facility] Not Available Not Available 05/07/2024 17:56:46 10/24/19 24 10/24/2023 CBC W Auto Diffe renti al panel - Blood hematocrit [volume fraction] of blood 41.9 % low: 43%hig h: 54% low HCT 41.9 (L) 43.0 - 54.0 % 10/23 6:59 AM CDT [facility] Not Available Not Available 05/07/2024 17:56:46 10/24/19 24 10/24/2023 CBC W Auto Diffe renti al panel - Blood MCV [entitic volume] 93.1 text: 80.0 - 94.0 fL MCV 93.1 80.0 - 94.0 FL 10/23 6:59 AM CDT [facility] Not Available Not Available 05/07/2024 17:56:46 10/24/19 24 10/24/2023 CBC W Auto Diffe renti al panel - Blood MCH [entitic mass] 28.9 pg low: 27pghi gh: 31pg MCH 28.9 27.0 - 31.0 PG 10/23 6:59 AM CDT [facility] Not Available Not Available 05/07/2024 17:56:46 10/24/19 24 10/24/2023 CBC W Auto Diffe renti al panel - Blood MCHC [mass/volume ] 31 text: 32.0 - 36.0 g/dL low MCHC 31.0 (L) 32.0 - 36.0 G/DL 10/23 6:59 AM CDT [facility] Not Available Not Available 05/07/2024 17:56:46 10/24/19 24 10/24/2023 CBC W Auto Diffe renti al panel - Blood erythrocyte distribution width [entitic volume] by automated count 15.2 % low: 11.5%h igh: 14.5% high RDW 15.2 (H) 11.5 - 14.5 % 10/23 6:59 AM CDT [facility] Not Available Not Available 05/07/2024 17:56:46 10/24/19 24 10/24/2023 CBC W Auto Diffe renti al panel - Blood platelets [#/volume] in blood 138 text: 130 - 400 x10'3/ uL PLT 138 130 - 400 x10'3 /uL 10/23 6:59 AM CDT [facility] Not Available Not Available 05/07/2024 17:56:46 10/24/19 24 10/24/2023 CBC W Auto Diffe renti al panel - Blood platelet mean volume [entitic volume] in blood 13 text: 9.3 - 12.2 fL high MPV 13.0 (H) 9.3 - 12.2 FL 10/23 6:59 AM CDT [facility] Not Available Not Available 05/07/2024 17:56:46 10/24/19 24 10/24/2023 CBC W Auto Diffe renti al panel - Blood differential cell count method - blood AUTOMA CAROLYN DIFFER ENTIAL DIFFE RENTI AL TYPE AUTOM ATED DIFFE RENTI AL 10/23 6:59 AM CDT [facility] Not Available Not Available 05/07/2024 17:56:46 10/24/19 24 10/24/2023 CBC W Auto Diffe renti al panel - Blood neutrophils/ 100 leukocytes in blood by automated count 82.9 % NEUTR OPHIL S % 82.9 % 10/23 6:59 AM CDT [facility] Not Available Not Available 05/07/2024 17:56:46 10/24/19 24 10/24/2023 CBC W Auto Diffe renti al panel - Blood lymphocytes/ 100 leukocytes in blood by automated count 12.3 % LYMPH OCYTE S % 12.3 % 10/23 6:59 AM CDT [facility] Not Available Not Available 05/07/2024 17:56:46 10/24/19 24 10/24/2023 CBC W Auto Diffe renti al panel - Blood monocytes/10 0 leukocytes in blood by automated count 4 % MONOC YTES % 4.0 % 10/23 6:59 AM CDT [facility] Not Available Not Available 05/07/2024 17:56:46 10/24/19 24 10/24/2023 CBC W Auto Diffe renti al panel - Blood eosinophils/ 100 leukocytes in blood by automated count 0 % EOSIN OPHIL S 0.0 % 10/23 6:59 AM CDT [facility] Not Available Not Available 05/07/2024 17:56:46 10/24/19 24 10/24/2023 CBC W Auto Diffe renti al panel - Blood basophils/10 0 leukocytes in blood by automated count 0.1 % BASOP HILS 0.1 % 10/23 6:59 AM CDT [facility] Not Available Not Available 05/07/2024 17:56:46 10/24/19 24 10/24/2023 CBC W Auto Diffe renti al panel - Blood immature granulocytes /100 leukocytes in blood by automated count 0.7 % IMMAT URE GRANS % 0.7 % 10/23 6:59 AM CDT [facility] Not Available Not Available 05/07/2024 17:56:46 10/24/19 24 10/24/2023 CBC W Auto Diffe renti al panel - Blood neutrophils [#/volume] in blood 7.31 text: 1.80 - 7.70 x10'3/ uL ABS. NEUTR OPHIL S 7.31 1.80 - 7.70 x10'3 /uL 10/23 6:59 AM CDT [facility] Not Available Not Available 05/07/2024 17:56:46 10/24/19 24 10/24/2023 CBC W Auto Diffe renti al panel - Blood lymphocytes [#/volume] in blood 1.08 text: 1.00 - 4.80 x10'3/ uL ABS. LYMPH OCYTE S 1.08 1.00 - 4.80 x10'3 /uL 10/23 6:59 AM CDT [facility] Not Available Not Available 05/07/2024 17:56:46 10/24/19 24 10/24/2023 CBC W Auto Diffe renti al panel - Blood monocytes [#/volume] in blood 0.35 text: 0.30 - 0.82 x10'3/ uL ABS. MONOC YTES 0.35 0.30 - 0.82 x10'3 /uL 10/23 6:59 AM CDT [facility] Not Available Not Available 05/07/2024 17:56:46 10/24/19 24 10/24/2023 CBC W Auto Diffe renti al panel - Blood eosinophils [#/volume] in blood 0 text: 0.04 - 0.54 x10'3/ uL low ABS. EOSIN OPHIL S 0.00 (L) 0.04 - 0.54 x10'3 /uL 10/23 6:59 AM CDT [facility] Not Available Not Available 05/07/2024 17:56:46 10/24/19 24 10/24/2023 CBC W Auto Diffe renti al panel - Blood basophils [#/volume] in blood 0.01 text: 0.01 - 0.08 x10'3/ uL ABS. BASOP HILS 0.01 0.01 - 0.08 x10'3 /uL 10/23 6:59 AM CDT [facility] Not Available Not Available 05/07/2024 17:56:46 10/24/19 24 10/24/2023 CBC W Auto Diffe renti al panel - Blood immature granulocytes [#/volume] in blood 0.06 text: 0.00 - 0.49 x10'3/ uL ABS. IMMAT URE GRANU LOCYT ES 0.06 0.00 - 0.49 x10'3 /uL 10/23 6:59 AM CDT [facility] Not Available Not Available 05/07/2024 17:56:46 10/24/19 24 10/24/2023 CBC W Auto Diffe renti al panel - Blood interpretati on and review of laboratory results Abnorm al Not Available Not Available 17:56:46 10/24/19 24 10/24/2023 Gluco se [Mass /volu me] in Blood by Autom ated test strip glucose [mass/volume ] in blood by automated test strip 162 mg/dL low: 70mg/d Lhigh: 99mg/d L high GLUCO SE POC 162 (H) 70 - 99 mg/dL 10/23 12:10 AM CDT [facility] Not Available Not Available 05/07/2024 17:56:46 10/24/19 24 10/24/2023 Gluco se [Mass /volu me] in Blood by Autom ated test strip interpretati on and review of laboratory results Abnorm al Not Available Not Available 17:56:46 10/24/19 24 10/28/2023 Patho logy study pathology study [facility] [address] [place] [address] Teleph one: [phone], extens ion [id number] Pathol ogy Report Surgic al Pathol ogy Report Name: BELEN FRANCO Erin en #: [id number] Age: [birth year] (Age: 38) Locati on: [facility] Sex: M Proced ure Date: [facility] #: [id number] 95 Date Receiv ed: Date Report ed: Provid er: CHLOÉ DENNEY NOT DPM MILAD GÓMEZ MD Source : Skin, left great toe gouty tophi Clinic al Histor y: Left foot ulcer Gross Descri ption: Receiv ed in formal in and labele d with the patien t's labele d and left great toe gouty tophi , is a 1.1 x 0.2 x 0.2 cm portio n of white- jones soft tissue . Specim en is entire ly submit carolyn in casset te 1. Gross examin ation (when applic able) was perfor med at [facility], [address] [place] [address]. This case was interp reted and signed out at [facility], [address] [place] [address]. FINAL DIAGNO SIS: Soft tissue , left great toe, biopsy : -Consi stent with gouty tophi, see commen t Diagno sis Commen t: By polari zation are noted jonh ls consis tent with MSU, indica ting gouty tophi Elec tronic ally Signed Out KOLBY ANDRADE MD PATHO LOGY [facility] Depar tment of Labor atory Medic ine [address] [facility] [place] [place] [address] Telep anna: , exten harini 07 Patho logy Repor t Surgi dutch Patho logy Repor t Name: EDGAR TENORIO AM Speci men #: [id number] Age: [id number] (Age: 38) Locat ion: SEOOD S Sex: M Proce dure Date: 2023 Hospi ted #: [id number] Date Recei franklin: 2023 Date Repor carolyn: 2023 Provi emanuel: BOOM MANRIQUEZ ENOT DPM HENRIETTA Orozco MD CRYST AL M SAMY GOFF MD Sour e: Skin, left great toe gouty tophi Clini dutch Histo ry: Left foot ulcer Gross Descr iptio n: Recei franklin in forma carlos and label ed with the patie nt's label ed and left great toe gouty tophi , is a 1.1 x 0.2 x 0.2 cm porti on of white -jones soft tissu e. Speci men is entir dexter submi tted in casse tte 1. Gross exami natio n (when appli cable ) was perfo rmed at [facility], [address], [place] [address] . This case was inter prete d and cecilia d out at [facility], [address] , [place] [address] . FINAL DIAGN OSIS: Soft tissu e, left great toe, biops y: -Cons isten t with gouty tophi , see comme nt Diagn osis Comme nt: By polar izati on are noted cryst als consi stent with MSU, indic ating gouty tophi Kelli ctron icall y Cecilia d Out KOLBY ANDRADE MD [facility] Not Available Not Available 05/07/2024 17:56:46 08/18/19 24 08/18/2023 US, usama silverio r No observ ation record ed. [address] [place], [address], 09/05/2023 12:49:13 08/18/1908/18/2023 CT, abdom en + pelvi s, w/ contr ast No observ ation record ed. [address] [place], [address], 08/26/2023 15:14:06 10/22/19 24 10/22/2023 XR, toe(s ), 2 or more view No observ ation record ed. [address] [place], [address], 10/22/2023 16:13:14 10/22/19 24 10/22/2023 XR, wrist , 3 or more view No observ ation record ed. [address] [place], [address], 12/26/2023 15:44:18 10/22/19 24 10/22/2023 XR, shoul emanuel, 2 or more view No observ ation record ed. [address] [place], [address], 12/26/2023 15:44:19 10/22/19 24 10/22/2023 XR, chest , 1 view No observ ation record ed. [address] [place], [address], 12/26/2023 15:44:19 Result Notes None recorded. Problems Name Problem SNOMED Code Status Onset Date Resolution Date Notes Provider Name and Address Organization Details Recorded Time Psoriatic arthritis 336274473 Active 2021 Dane Steinberg MD Attn: Accounting ,[address] [facility], [place], [address] , [place] - [facility] 3 11:02:39 Smoker 41607538 Active 2021 Dane Steinberg MD Attn: Accounting ,[address] [facility], [place], [address] , [place] [facility] 3 11:04:20 Physical deconditio cyndi 0591201669458 2 Active 2022 Dane Steinberg MD Attn: Accounting ,[address] [place], [address] , [place] [facility] 3 11:27:28 Low back pain 643704077 Active 2023 CANDICE SHANE MD Attn: Accounting ,[address] [facility], [place], [address] , [place] - [facility] 4 21:30:08 Chronic tophaceous gout 40917143 Active 2023 CANDICE SHANE MD Attn: Accounting ,[address] [place], [address] , [place] [facility] 4 21:30:10 Under care of rheumatolo gist 508726871 Active 2023 CANDICE SHANE MD Attn: Accounting ,[address] [place], [address] , [place] [facility] 4 21:32:37 Problem Notes None recorded. Procedures Surgical History Date Name Laterality Status Provider Name and Address Organization Details Recorded Time debridement of foot ulcer completed Radha Auguste [place] - [facility] 11/03/2023 17:35:37 procedure on fingernail completed Margarita Perkins [place] - [facility] 04/26/2021 14:08:58 examination of toe completed TWILA Moncada - [facility] 04/26/2021 14:09:10 procedure on gallbladder completed Naz Bettencourt MA [place] - [facility] 02/13/2024 17:02:58 Imaging Results Imaging Date Name Status LastModified by Organiz ation Details LastModified Time 08/18/2023 US, gallbladder completed [address] [place], [address], 09/05/2023 12:49:13 08/18/2023 CT, abdomen + pelvis, w/ contrast completed [address] [place], [address], 08/26/2023 15:14:06 10/22/2023 XR, toe(s), 2 or more view completed [address] [place], [address], 10/22/2023 16:13:14 10/22/2023 XR, wrist, 3 or more view completed [address] [place], [address], 12/26/2023 15:44:18 10/22/2023 XR, shoulder, 2 or more view completed [address] [place], [address], 12/26/2023 15:44:19 10/22/2023 XR, chest, 1 view completed [address] [place], [address], 12/26/2023 15:44:19 Procedure Notes None recorded. Medical Equipment None Reported. Allergies No known drug allergies Medications Name Sig Start Date Stop Date Status Note LastModified by Organization Details LastModified Time cyclobenz aprine 10 mg tablet TAKE 1 TABLET BY MOUTH THREE TIMES DAILY NEEDED FOR LOWER BACK PAIN active Not Available Not Available No t Available atorvasta tin 80 mg tablet 12/24 completed Not Available Not Available Not Available doxycycli ne hyclate 100 mg capsule TAKE 1 CAPSULE BY MOUTH TWICE DAILY 10/03 completed Not Available Not Available Not Available clindamyc in HCl 300 mg capsule TAKE 1 CAPSULE BY MOUTH EVERY 8 HOURS FOR 7 DAYS 02/12 completed Patient is not taking. Not Available Not Available Not Available ibuprofen 800 mg tablet Take 1 tablet every 8 hours by oral route with meal(s) for 7 days. 02/12 completed Patient not taking. Not Available Not Available Not Available hydrocodo ne 5 mg-acetam inophen 325 mg tablet TAKE 1 TO 2 TABLETS BY MOUTH EVERY 6 HOURS NEEDED FOR PAIN 10/03 completed Not Available Not Available Not Available prednison e 20 mg tablet TAKE 2 TABLETS BY MOUTH DAILY FOR 4 DAYS 02/12 completed Patient not taking. Not Available Not Available Not Available prednison e 5 mg tablet TAKE 1 TABLET BY MOUTH DAILY 02/12 completed Patient not taking. Not Available Not Available Not Available acetamino phen 300 mg-codein e 30 mg tablet TAKE 1 TABLET BY MOUTH EVERY 6 HOURS NEEDED FOR PAIN 09/08 completed Not Available Not Available Not Available prochlorp erazine maleate 10 mg tablet 10/03 completed Not Available Not Available Not Available allopurin ol 100 mg tablet TAKE 1 TABLET BY MOUTH DAILY 09/08 completed Not Available Not Available Not Available sulfameth oxazole 800 mg-trimet hoprim 160 mg tablet TAKE 1 TABLET BY MOUTH TWICE DAILY FOR 7 DAYS 02/18 completed Not Available Not Available Not Available tramadol 50 mg tablet TAKE 1 TABLET BY MOUTH EVERY 6 HOURS NEEDED FOR PAIN 02/12 completed Patient not taking. Not Available Not Available Not Available amoxicill in 500 mg tablet TAKE 1 TABLET BY MOUTH TWICE DAILY WITH FOOD 02/18 completed Not Available Not Available Not Available ketorolac 10 mg tablet TAKE 1 TABLET BY MOUTH EVERY 6 HOURS NEEDED FOR MODERATE TO SEVERE PAIN 02/18 completed Not Available Not Available Not Available oxycodone -acetamin ophen 5 mg-325 mg tablet TAKE 1 TABLET BY MOUTH EVERY 4 HOURS NEEDED FOR PAIN 02/12 completed Patient not taking. Not Available Not Available Not Available methotrex ate sodium 2.5 mg tablet TAKE 3 TABLETS BY MOUTH WEEKLY 12/24 completed Not Available Not Available Not Available prednison e 2.5 mg tablet TAKE 1 TABLET BY MOUTH EVERY DAY 09/08 completed Not Available Not Available Not Available dexametha sone 4 mg tablet TAKE 1 TABLET BY MOUTH TWICE DAILY FOR 5 DAYS THEN 1 TABLET ONCE DAILY FOR 5 DAYS DIRECTED 10/03 completed Not Available Not Available Not Available indometha michael 50 mg capsule TAKE 1 CAPSULE BY MOUTH THREE TIMES DAILY WITH MEALS 08/04 completed Not Available Not Available Not Available docusate sodium 100 mg capsule TAKE ONE CAPSULE BY MOUTH TWICE DAILY 02/12 completed Patient not taking. Not Available Not Available Not Available Trexall 7.5 mg tablet TAKE 1 TABLET BY MOUTH EVERY WEEK 2024 active Not Available Not Available Not Avai lable folic acid 1 mg tablet Take 1 tablet(s ) every day by oral route with meals for 30 days. 2024 active Not Available Not Available Not Avai lable allopurin ol 300 mg tablet TAKE 1 TABLET BY MOUTH EVERY DAY 05/12 completed Not Available Not Available Not Available acetamino phen 300 mg-codein e 60 mg tablet TAKE 1 TABLET BY MOUTH EVERY 6 HOURS NEEDED FOR PAIN NOT RELIEVED BY DEXAMETH ASONE ALONE. TAKE WITH FOOD 10/03 completed Not Available Not Available Not Available ibuprofen 600 mg tablet 10/03 completed Not Available Not Available Not Available oxycodone -acetamin ophen 7.5 mg-325 mg tablet TAKE 1 TABLET BY MOUTH EVERY 4 HOURS NEEDED FOR SEVERE PAIN 10/03 completed Not Available Not Available Not Available Trexall 15 mg tablet Take 1 tablet every week by oral route with meals for 28 days. 10/03 completed Not Available Not Available Not Available methylpre dnisolone 4 mg tablets in a dose pack FOLLOW PACKAGE DIRECTIO NS 10/03 completed Not Available Not Available Not Available morphine 15 mg immediate release tablet TAKE ONE-HALF TABLET BY MOUTH EVERY 4 HOURS NEEDED FOR PAIN THAT IS NOT IMPROVED BY OTC MEDICATI ONS. 10/03 completed Not Available Not Available Not Available indometha michael ER 75 mg capsule,e xtended release TAKE 1 CAPSULE BY MOUTH EVERY DAY WITH MEALS 02/12 completed pt not taking Not Available Not Available Not Available ondansetr on 4 mg disintegr ating tablet DISSOLVE ONE TABLET BY MOUTH EVERY 8 HOURS NEEDED FOR NAUSEA 10/03 completed Not Available Not Available Not Available cefdinir 300 mg capsule 02/12 completed Patient is not tkaing. Not Available Not Available Not Available metoclopr amide 10 mg tablet TAKE 1 TABLET BY MOUTH EVERY 8 HOURS NEEDED FOR ABDOMINA L CRAMPING AND NAUSEA 02/12 completed pt not takig Not Available Not Available Not Available amoxicill in 875 mg-potass ium clavulana te 125 mg tablet TAKE 1 TABLET BY MOUTH EVERY 12 HOURS 02/12 completed Patient is not taking. Not Available Not Available Not Available oxycodone 5 mg tablet 10/03 completed Not Available Not Available Not Available cyclobenz aprine 5 mg tablet TAKE 1 TABLET BY MOUTH THREE TIMES DAILY NEEDED FOR MUSCLE SPASMS 02/18 completed Not Available Not Available Not Available clobetaso l-emollie nt 0.05 % topical cream 09/08 completed Not Available Not Available Not Available naloxone 4 mg/actuat ion nasal spray USE 1 SPRAY IN ONE NOSTRIL NEEDED FOR OPOID REVERSAL 02/18 completed Not Available Not Available Not Available Humira(CF ) Pen 40 mg/0.4 mL subcutane ous kit active . Not Available Not Available Not Available Voltaren Arthritis Pain 1 % topical gel APPLY 2 GRAMS TO THE AFFECTED AREA(S) BY TOPICAL ROUTE 4 TIMES PER DAY 2023 active Not Available Not Available Not Avai lable allopurin ol 200 mg tablet TAKE 2 TABLETS BY MOUTH TWICE DAILY active Not Available Not Available No t Available Vitals Date Recorded Body height Body mass index (BMI) Body weight Respiratory rate Body temperature Oxygen saturation Oxygen saturation in Arterial blood by Pulse oximetry Heart rate Systolic blood pressure Diastolic blood pressure Provider Name and Address Organization Details Last Updated DateTime 4 180.34 cm 33.6 kg/m2 577617. 16 g 16 /min 97.8 [degF] 97 % 97 % 78 /min 117 mm[Hg] 77 mm[Hg] Radha Auguste [place] - [facility] 4 15:12:52 Date Recorded Body height Body mass index (BMI) Body weight Body temperature Respiratory rate Heart rate Systolic blood pressure Diastolic blood pressure Provider Name and Address Organization Details Last Updated DateTime 4 180.34 cm 34 kg/m2 380261. 4 g 97.3 [degF] 16 /min 83 /min 120 mm[Hg] 86 mm[Hg] Christianne Brooks MA [facility] 4 11:23:27 Date Recorded Body height Body mass index (BMI) Body weight Body temperature Heart rate Respiratory rate Oxygen saturation Oxygen saturation in Arterial blood by Pulse oximetry Systolic blood pressure Diastolic blood pressure Provider Name and Address Organization Details Last Updated DateTime 4 180.34 cm 33.5 kg/m2 497872. 92 g 97.1 [degF] 80 /min 18 /min 96 % 96 % 119 mm[Hg] 83 mm[Hg] Naz Bettencourt MA [facility] 4 15:10:12 Date Recorded Body height Body mass index (BMI) Body weight Respiratory rate Body temperature Heart rate Oxygen saturation Oxygen saturation in Arterial blood by Pulse oximetry Systolic blood pressure Diastolic blood pressure Provider Name and Address Organization Details Last Updated DateTime 4 180.34 cm 33.8 kg/m2 782065. 35 g 16 /min 98.2 [degF] 87 /min 97 % 97 % 106 mm[Hg] 73 mm[Hg] Leyda BeanKARLA [facility] 4 11:46:12 Date Recorded Body height Body mass index (BMI) Body weight Heart rate Body temperature Respiratory rate Oxygen saturation Oxygen saturation in Arterial blood by Pulse oximetry Systolic blood pressure Diastolic blood pressure Provider Name and Address Organization Details Last Updated DateTime 4 180.34 cm 32.9 kg/m2 213697. 5 g 111 /min 97.8 [degF] 18 /min 96 % 96 % 131 mm[Hg] 87 mm[Hg] Naz Bettencourt MA [facility] 4 17:05:55 Social History Question Answer Notes LastModified by Organizat ion Details LastModified Time Tobacco Smoking Status Current Every Day Smoker TWILA Moncada, [facility] 04/26/2021 14:08:18 Do You Have An Advance Directive? No Information n ot available 04/26/2021 What Is Your Level Of Alcohol Consumption? None Information not available 04/26/2021 In The 14 Days Before Symptom Onset, Have You Had Close Contact With A Laboratory-confirm ed COVID-19 While That Case Was Ill? No Information n ot available 04/26/2021 In The 14 Days Before Symptom Onset, Have You Had Close Contact With A Person Who Is Under Investigation For COVID-19 While That Person Was Ill? No Information not available 04/26/2021 Have You Been To An Area Known To Be High Risk For COVID-19? No Information not available 04/26/2021 Are You Currently Employed? No Information not available 04/26/2021 What Was The Date Of Your Most Recent Tobacco Screening? 02/13/2024 Information not available 02/13/2024 What Is Your Relationship Status? Single Information not available 04/26/2021 Do You Have Smoke And Carbon Monoxide Detectors In Your Home? Yes Information not available 04/26/2021 Are You Passively Exposed To Smoke? No Information no t available 04/26/2021 How Much Tobacco Do You Smoke? 0.25 PPD Or Less [email or web address] Information not available 05/13/2023 Do You Use Any Illicit Or Recreational Drugs? No Information not available 04/26/2021 Has Tobacco Cessation Counseling Been Provided? Yes Information not available 04/26/2021 On What Date Was Tobacco Cessation Counseling Provided? 02/13/2024 Information not available 02/13/2024 How Many Years Have You Smoked Tobacco? 20 Information not available 04/26/2021 Do You Or Have You Ever Used Any Other Forms Of Tobacco Or Nicotine? No [email or web address] Information not available 10/03/2022 Sex: Male Functional Status None recorded. Mental Status None recorded. Family History Relationship Description Onset Age of this Age Resolved Age Notes LastModified by Organization Details LastModified Time Father Hypertensive disorder [email or web address] Not available 04/26 14:07:41 Notes:08/05/23, 09/09/23, 02/12 Medical History Condition Response Skin Problems Y Muscle, Joint, or Bone Problems Y Immunizations Vaccine Type Date Status Note Provider Nam e and Address Organization Details Recorded Time Influenza, split virus, quadrivalent, PF 12/11/2013 completed BHARAT LEO MD Attn: Accounting,[address], [place], [address], [place] [facility] 08/05/2023 12:09:15 Past Encounters Encounter ID Performer Location Encounter Start Date Encounter Closed Date Diagnosis/Indication Diagnosis SNOMED-CT Code Diagnosis ICD10 Code Diagnosis Note [id number] MD Miranda Teresa 14 IM 4 [facility] [place] [address] 04/26/2021 13:48:48 04/27/2021 12:02:20 Psoriatic arthritis 897741649 L40.50 Was dx in the past w/ gout, though was never worked up for it. Will get records from previous doctors officeHis polyarthri tis, nodules, and h/o uncontroll ed psoriasis increase likelihood of arthritis 2/2 to psoriasisW ill continue on prednisone but will continue at 5mg dailywill continue indomethac in 75mg extended release for painrx methotrexa te 15mg and will discuss increasing doese at next visitrheum otology referral for further management f/u in 4wks https://pu bmed.ncbi. nlm.nih.go v/28598155 /https://e medicine.m [employer].co /article/ 0421103-ef rkup#c6htt ps://www.c [employer].or g/[email or web address] /MUSKEL_me thotrexate -psoriatic -arthritis Adult heal th examination 847238511 Z00.00 Establishm ent of care Smoker 73493828 F17.200 Pt smokes 1/4 of a pack cigs daily, used to smoke newports but now smokes a cheaper brandDiscu ssed the benefits of quitting such as improvemen t of his arthritis [id number] MD Miranda Colon 14 IM [address] [facility] [place] [address] 05/24/2021 14:54:22 05/25/2021 09:44:34 Psoriatic arthritis 438543688 L40.50 Pt has a h/o of psoriasis since the age of 21. He was tx for about 12 yrs w/ allopurino l and indocin. States that he has had nodules growing in his joints for about 5 yrs w/o improvemen t until he was started on steroids. His indomethic in was adjusted to be less than 200mg daily and will continue on this plan. Rheumatolo gy appointmen t is set up w/ [facility] in August. His labs demosntrat ed elevated uric acid and ESR, both of which can support psoriatic arthritis or gout. Due to his clinical picture, history of psoriasis, and worsening nodules psoriatic arthritis is probable. He has significan t improved on current regimenHis polyarthri tis, nodules, and h/o uncontroll ed psoriasis increase likelihood of arthritis 2/2 to psoriasisW ill continue on prednisone but will continue at 5mg dailywill change indomethic ine from 75mg ER to 50mg TIDDiscuss ed adding 500mg Tylenol TID, not to exceed 3g dailyrx methotrexa te 15mg and will discuss increasing dose at next visitrheum otology referral for further management f/u in 4wks https://pu bmed.The Clymb. nlm.nih.go v/29511798 /https://e ShowMe VIdeoke.[employer] /article/ 0356837-gn rkup#c6htt ps://www.[employer].or g/RH919947 /MUSKEL_hi thotrexate -psoriatic -arthritis Smoker 62976278 F17.200 Pt smokes 1/4 of a pack cigs daily, used to smokes Codex[employer] but now smokes a cheaper brandDiscu ssed the benefits of quitting such as improvemen t of his arthritis [id number] MD Miranda Teresa 14 [address] [facility] [place] [address] 02/18/2022 15:41:38 02/25/2022 10:39:01 Psoriatic arthritis 382807102 L40.50 Pt has a h/o of psoriasis since the age of 21. His indomethac in was adjusted to be less than 200mg daily and will continue on this plan. His labs demonstrat ed elevated uric acid and ESR, both of which can support psoriatic arthritis or gout. Due to his clinical picture, history of psoriasis, and worsening nodules psoriatic arthritis is probable. He has significan t improved on current regimenHis polyarthri tis, nodules, and h/o uncontroll ed psoriasis increase likelihood of arthritis 2/2 to psoriasisW ill continue on prednisone but will continue at 5mg dailywill change indomethac in from 75mg ER to 50mg TIDDiscuss ed adding 500mg Tylenol TID, not to exceed 3g dailyrx methotrexa te 15mg and will discuss increasing dose at next visitrheum atology referral for further management f/u in 4wks https://pu bmed.ncbi. nlm.nih.go v/84685296 /https://e medicine. [employer].co /article/ 4232863-uf rkup#c6htt ps://www.Pixc.or g/[email or web address] /[employer]_hi thotrexate -psoriatic -arthritis [id number] MD Miranda Prabhakar 14 IM [address] [facility] [address] [place] [address] 10/03/2022 10:12:59 10/10/2022 10:59:13 Obesity 137800768 E66.9 Psoriatic arthritis 1563 45684 L40.50 Pt has a h/o of psoriasis since the age of 21. His labs demonstrat ed elevated uric acid and ESR, both of which can support psoriatic arthritis and/or gout. Due to his clinical picture, history of psoriasis, and worsening nodules, psoriatic arthritis is probable. He has significan t improved on current regimenHis polyarthri tis, nodules, and h/o uncontroll ed psoriasis increase likelihood of arthritis 2/2 to psoriasisW ill continue on prednisone but will continue at 5mg dailywill change indomethac in from 75mg ER to 50mg TID, check CMP todayDiscu ssed adding 500mg Tylenol TID, not to exceed 3g dailyrx methotrexa te 7.5mg, per rheumatolo yana logy on boardf/u in 3 mo https://pu bmed.ncbi. nlm.nih.go v/88500784 /https://e medicine. [employer].co /article/ 7335190-uq rkup#c6htt ps://www.c [employer].or g/RY978817 /[employer]_hi thotrexate -psoriatic -arthritis Smoker [id number] F17.200 Pt smokes 1/4 of a pack cigs daily, used to smokes newBridestorys but now smokes a cheaper brandDiscu ssed the benefits of quitting such as improvemen t of his arthritis Physical deconditioning 1628967787 9102 R68.89 pt has significan t deconditio cyndi from psoriatic arthritis affecting his feet and knees. Was discharged from SNF but needs continuati on of his PT/OT. Has difficulty walking from wheelchair to door. 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 [id number] MD Miranda Colon 14 [address] [facility] [address] [place] [address] 12/24/2022 10:57:10 12/30/2022 16:19:25 Obesity 661716570 E66.9 BMI: 32- Discussed lifestyle modificati ons such as diet and exercise. Suggested to eat portions about the size of the palm of their hand and to cut out added sugars to their diet, and to exercise by doing what they like to do for at least 3 hrs a wk for health maintenanc e and 5-7 hrs per wk for weight loss.- discussed adverse health effects of obesity such as DM, HLD, and cancer risk Psoriatic arthritis 1563 28123 L40.50 Pt has a h/o of psoriasis since the age of 21. His labs demonstrat ed elevated uric acid and ESR, both of which can support psoriatic arthritis and/or gout. Due to his clinical picture, history of psoriasis, and worsening nodules, psoriatic arthritis is probable. He has significan t improved on current regimenHis polyarthri tis, nodules, and h/o uncontroll ed psoriasis increase likelihood of arthritis 2/2 to psoriasisW ill continue on prednisone but will continue at 5mg dailywill change indomethac in from 75mg ER to 50mg TID, chech CMP todayDiscu ssed adding 500mg Tylenol TID, not to exceed 3g dailyrx methotrexa te 7.5mg, per rheumatolo gyrheumato logy on boardf/u in 3 mo https://pu bmed.ncbi. nlm.nih.go v/39732259 /https://e medicine.m [employer].co /article/ 0582206-ey rkup#c6htt ps://www.c ochrane.or g/YZ246697 /MUSKEL_hi thotrexate -psoriatic -arthritis Smoker 75888736 F17.200 PPD: 1/2; for 18 yrs.- Discussed cessation techniques such as cutting back on 2 cigarettes per day for a few wks then continuing this until he reaches zero. Offered rx medication s such as a nicotine patch and chantix.- Discussed adverse health effects such as cardiovasc ular disease, stroke, and cancer risk. [id number] MD Miranda Franklin 14 IM [address] [facility] [place] [address] 05/13/2023 15:03:34 05/26/2023 11:42:57 Physical deconditioning 8714854274 9102 R68.89 pt has significan t deconditio cyndi from psoriatic arthritis affecting his feet and knees. able to walk about 75ft before he has to rest. Psoriatic arthritis 1563 89689 L40.50 Pt has a h/o of psoriasis since the age of 21. His labs demonstrat ed elevated uric acid and ESR, both of which can support psoriatic arthritis and/or gout. Due to his clinical picture, history of psoriasis, and worsening nodules, psoriatic arthritis is most likely. 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 His polyarthri tis, nodules, and h/o uncontroll ed psoriasis increase likelihood of arthritis 2/2 to psoriasis - Will continue on prednisone 5mg daily- Continue indomethac in 75mg ER- Continue 500mg Tylenol TID, not to exceed 3g daily- Continue humira and trexail per rheumatolo gy- f/u in 3 mo Smoker 08088603 F17.200 PPD: 1/2 -> 1/4 now; for 18 yrs.- Discussed cessation techniques such as cutting back on 2 cigarettes per day for a few wks then continuing this until he reaches zero. Offered rx medication s such as a nicotine patch and chantix.- Discussed adverse health effects such as cardiovasc ular disease, stroke, and cancer risk. Gouty arth ritis of left knee [id number] 31788 M10.062 Recent MRI of the L knee showed tophi and narrowing of the joint space along w/ tendinopat hy.- will send for orthopedic f/u for recommenda tivalente [id number] MD Miranda SUE 14 IM [address] [facility] [place] [address] 08/05/2023 11:12:46 08/20/2023 10:52:28 Psoriatic arthritis 645055696 L40.50 Pt has a h/o of psoriasis since the age of 21. His labs demonstrat ed elevated uric acid and ESR, both of which can support psoriatic arthritis and/or gout. Due to his clinical picture, history of psoriasis, and worsening nodules, psoriatic arthritis is most likely. 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 His polyarthri tis, nodules, and h/o uncontroll ed psoriasis increase likelihood of arthritis 2/2 to psoriasis I will reach out to rheumatolo gy about tapering off of prednisone I will send for CMP, CBC due to his medication s to make sure that his kidney function is not worsening and that he is not having a dyscrasia due to his Humira and Trexall. - Will continue on prednisone 5mg daily- Continue indomethac in 75mg ER- Continue 500mg Tylenol TID, not to exceed 3g daily- Continue humira and trexail per rheumatolo gy- f/u in 3 mo Adult trihealth examination [id number] Z00.00 Patient presents for follow-up care- discussed exercising 3hrs a wk minimum and to add in about 15min of resistance training 2x/wk.- discussed diet; portions no larger than the palm of their hand, eliminatin g/limiting sugars from diet, watching out for high glycemic foods, eating baked proteins, adding lentils/be ans to diet, and to eat whole grain breads.- pts spiritual/ mu-ism/ mindfullne ss addressed- medication s reviewed w/ pt- additional concerns addressed Obesity [id number] E66.9 BMI: 34- Discussed lifestyle modificati ons such as diet and exercise. Suggested to eat portions about the size of the palm of their hand and to cut out added sugars to their diet, and to exercise by doing what they like to do for at least 3 hrs a wk for health maintenanc e and 5-7 hrs per wk for weight loss.- discussed adverse health effects of obesity such as DM, HLD, and cancer risk [id number] MD Miranda SUE 14 IM [address] [facility] [address] [place] [address] 09/09/2023 14:59:25 09/26/2023 11:55:37 Obesity [id number] E66.8 Healthy lifestyle encouraged including regular exercise of at least 150min per week, diet rich in plant based foods and low in added sugars, processed carbohydra dee, and high salt foods. Encouraged protein intake mostly with chicken and white fish and limited red meat. Paronychia of toe of left foot [id number] L03.032 Vitals stable and he remains afebrile.P atient should continue with clindamyci n for total of 7 daysWound was cleaned and new bandage was placedPati ent was instructed to perform daily wound changes. 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 Has seen Podiatry in the past. Will give referral [id number] MD Miranda Franklin [address] [facility] [place] [address] 09/16/2023 11:34:13 09/19/2023 10:21:33 Paronychia of toe of left foot [id number] L03.032 patient has intermitte ntly taken the clindamyci n but it appears to no longer be actively infected, can stop tomorrow. Has not heard from podiatry yet. Will check on referral status. phone number given to make appointmen t.Keep clean and with petroleum jelly until no longer open then can leave open Obesity [id number] E66.8 Healthy lifestyle encouraged including regular exercise of at least 150min per week, diet rich in plant based foods and low in added sugars, processed carbohydra dee, and high salt foods. Encouraged protein intake mostly with chicken and white fish and limited red meat. Psoriatic arthritis [id number] L40.50 see above Gout [id number] M10.9 patient on allopurino l. Needs a visit dedicated to the status of all of his medical problems. Will get establishmiguel d with his new PCP terri. Previously /currently seeing rheumatolo mai but last visit was 03/2023 [id number] MD Miranda Teresa [address] [facility] [place] [address] 02/13/2024 16:46:50 02/17/2024 09:20:12 Low back pain [id number] M54.50 Patient reports dealing with low back pain, stating he has tried heating pads with minimal relief. Patient states that he is not able to take Tylenol or NSAIDs due to worsening of kidney function. Interested in something else for pain control. Will provide Voltaren gel that he can apply to affected area up to 4 times a day. Will also provide cyclobenza vic to have with pain, especially at night. Psoriatic arthritis 1563 13202 L40.50 Chronic psoriatic arthritis. Patient does see rheumatolo gy and is currently on Humira and Trexal with some relief. 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 Patient is currently on Humira, Trexal and Allopurino l. Denies any significan t worsening of symptoms today. States that his fingers actually do not hurt. Under care of wardrobe stylist [id number] Z76.89 Patient sees rheumattoro oneill for chronic psoriatic arthritis, strongly encouraged to continue these follow-up appointmen ts. Health Concerns Section Related Observation LastModified by Organization Detai ls LastModified Time None Recorded Concern Status LastModified by Organization Details LastModified Time None Recorded Advance Directives Directive N: Payers Encounter Date Sequence Insurance Name Policy Number Policy Yoon Covered Member ID Yoon Member ID Guarantor Name 05/13/2023 1 [facility] ON OR AFTER 09/07/20 (MEDICAID REPLACEMENT - HMO) William Vail [id number] William Vail 08/05/2023 1 [facility] ON OR AFTER 09/07/20 (MEDICAID REPLACEMENT - HMO) William Vail [id number] William Vail 09/09/2023 1 [facility] ON OR AFTER 20 (MEDICAID REPLACEMENT - HMO) William Vail [id number] William Vail 09/16/2023 1 [facility] - [facility] ON OR AFTER 20 (MEDICAID REPLACEMENT - HMO) William Vail [id number] William Vail 02/13/2024 1 [facility] - [facility] ON OR AFTER 20 (MEDICAID REPLACEMENT - HMO) William Vail [id number] William Vail Notes Date Note Type Note Provider Name and Address Organization Details Recorded Time 05/13/2023 text/html HPI: Pt is a 36 yo M w/ a h/o of psoriasis, arthritis, and tobacco use who presents f/u care and requesting a motorized scooter. states that he is only able to walk about 100ft before he has to sit down and rest. He develops significant pain through this. He is able to do all of his ADL's but ambulating is getting harder and harder. Would like to be able to go to [employer] this summer with his kids but he knows that he wouldn't be able to walk far. He is no longer doing PT b/c he completed that course. Denies BROWN, blurred vision, neck pain, fevers, fatigue, night sweats, CP, SOB, NVDC, and rashes. PMH: psoriasis, gout, and obesity.Allergies: nkdaMedications: prednisone and indomethacinFamily hx: father - HTNSurgical hx: R hand surgery and R foot surgerysocial hx: tobacco use, no etoh or illicit drug use Ericka Hale MD Attn: Accounting,[address] [place], [address], [place] [facility] 05/22/2023 22:35:49 08/05/2023 text/html HPI: Pt is a 36 yo M w/ a h/o of psoriasis, arthritis, and tobacco use who presents f/u care. Patient states that he is overall doing very well and that he has been able to move much more. He was declined the motorized scooter which she is disappointed about but he is pushing on and doing the best that he can to live his life. He has not followed up with his wardrobe stylist for a while because he has not been able to make it up to [place] to have those appointments, any has not been able to reach the clinic to be able to speak with them to set up that appointment. Denies BROWN, blurred vision, neck pain, fevers, fatigue, night sweats, CP, SOB, NVDC, and rashes. PMH: psoriasis, gout, and obesity.Allergies: nkdaMedications: prednisone and indomethacinFamily hx: father - HTNSurgical hx: R hand surgery and R foot surgerysocial hx: tobacco use, no etoh or illicit drug use BHARAT LEO MD Attn: Accounting,[address] [facility], [place], [address], [facility] 08/20/2023 09:29:20 09/09/2023 text/html 38-year-old pres ents to clinic for urgent care follow-upLeft great toe abscess drained on 09/06 at [facility]. Wound culture was obtained. Started on Clindamycin for 7 daysNoticed more redness yesterday and now having some more pain.Has been changing the dressing daily BHARAT LEO MD Attn: Accounting[address] [facility], [place], [address], [facility] 09/25/2023 14:18:49 09/16/2023 text/html 38-year-old male with a history of tophaceous gout as well as psoriatic arthritis presents for follow-up of an infected toe. He reports that a week to 2 weeks ago he developed redness and swelling just to 1 side of one of the chronic masses on his left great toe. He went to urgent care where they were unable to drain anything, then the next day went to the emergency room where purulence was obtained. He was put on clindamycin, and then followed up here. About a week ago he was noted to be infected still, and he was prescribed clindamycin 300 3 times daily for 7 days, however he only has been taking it twice a day most days. He denies any fever or chills, denies any other illness symptoms. He has been seeing rheumatology for his tophaceous gout as well as his psoriatic arthritis, is on Humira and Trexall. He is also on oral allopurinol. He reports he was feeling better when he was taking indomethacin, but this was discontinued. He is no longer on any steroids. He denies any other complaints today. Ericka Hale MD Attn: Accounting,[address] [facility], [place], [address], [facility] 09/16/2023 12:24:45 02/13/2024 text/html HPI:William Worleymiguel carter is a 38y/o M with PMH of psoriatic arthritis, tophaceous gout, and tobacco use who presents today for 6-month follow up appointment. Patient follows with rheumatology for tophaceous gout and has been on Humira and Trexall. Has also taken oral Allopurinol. Today's concerns:-Patient feels well today apart from low back pain. Patient states that his psoriatic arthritis and gout has been fairly well-controlled on current medications. He was recently taken off of indomethacin due to elevated kidney function. Patient does still follow with rheumatology and has next appointment with them around May 2024. Patient is interested in something for pain, understanding that it would have to be a medication that would not worsen his kidney function. No other acute concerns today. Preventive Health Measures:-BP screenin/87-Dental exam: Reminded to make appointment-Eye exam: Reminded to make appointment-Diabetic foot exam: N/A-Diabetic eye exam: N/A-HIV screen: Tested in 2021, ngt-hyzolbjr-Kot C screen: Tested in 2021, jgk-xfmhauvy-Yxxj vaccine: Will discuss at next visit-COVID/Flu vaccine:-Pneumococcal vaccine: N/A-Shingles vaccine: N/A-Colonoscopy: N/A-LDCT: N/A-PHQ-9, ANTON-7: PHQ-9 score of 6, ANTON-7 score of 2 as of 09/2023 Donnell Garner MD Attn: Accounting,[address] [place], [address], [facility] 02/16/2024 16:05:42
--- OUTSIDE RECORDS SUMMARY | 2024-05-29 11:22 | XMS_ITS | Encounter Summary ---
Author Organization [facility] Facility Care Team Providers Care Plate Glass Installer Helper Name Role Phone Sagar Yoo MD Primary Care Provider [phone] No, Physician Primary Care Provider [phone] Miscellaneous, Not In File Primary Care Provider Unavailable Dane Steinberg MD Primary Care Provider [phone] Jony Stoll MD Unavailable [phone] Haydee Singh MD Unavailable Kamar Chirinos MD Primary Care Provider + Encounter Details Date Type Department Care Team (Latest Contact Info) Description 10/30/2017 Orders Only [facility] Provider, MD Ryan [address] [place] [address] Social History Tobacco Use Types Packs/Day Years Used Date Smoking Tobacco: Every Day Cigarettes Smokeless Tobacco: Never Sex and Gender Information Value Date Recorded Sex Assigned at Not on file Legal Sex Male 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 us Historical Provider Final Res ult documented in this encounter Visit Diagnoses Not on filedocumented in this encounter Additional Health Concerns Infection Onset Date Last Indicated Resolved Time MRSA 02/15/2022 02/15/2022 08/12/2022 8:14 AM CDT documented as of this encounter Care Teams Plate Glass Installer Helper Relationship Specialty Start Date End Date Sagar Yoo MD [address] [facility] [address] [place] [address] PCP - General 05/24/17 04/09/21 No, Physician PCP - General 04/10/21 02/14/22 Miscellaneous, Not In File PCP - General 02/15/22 07/25/22 Dane Steinberg MD PCP - General Family Medicine 07/26/22 10/02/23 Kamar Chirinos MD [address] [place] [address] PCP - General Internal Medicine 10/03/23 Jony Stoll MD [address] [place] [address] DR ERMELINDA Montenegro [facility] [address] [place] [address] Surgeon Orthopedic Surgery 08/15/22 Haydee Singh MD [address] [place] [address] [address] [place] [address] Consulting Physician Family Medicine 10/15/22 documented as of this encounter
--- OUTSIDE RECORDS SUMMARY | 2024-05-29 11:22 | XMS_ITS | Clinical Summary ---
Author Organization [facility] Address [address] [place] [address] Care Team Providers Care Hydraulic Jack Mechanic Name Role Phone Unavailable Primary Care Provider Unavailabl e Source Comments [facility],non-owned Affiliates and Associated Physician Practices is amultiple site organization consisting of ambulatory clinics and hospital sitesin [place], [place], [place] and [place]. This disclosure is being madepursuant to the Care Everywhere program and may not contain all information available regarding this patient. Last updated 17.[facility] Allergies No known active allergies Medications * Be aware that medications may not be up to date on this document. Alwaysverify current medications with the patient. Medication Sig Dispensed Refills Start Date End Date Status allopurinol (ZYLOPRIM) 300 MG tablet Take 300 mg by mouth once daily Active benzonatate (TESSALON) 200 MG capsule Take 1 (one) capsule by mouth 3 times daily as needed for Cough 20 capsule 04/12/2020 Active Active Problems Problem Noted Date Diagnosed Date Chest pain 04/06/2020 Pneumonia due to COVID-19 virus 04/06/2020 Social History Tobacco Use Types Packs/Day Years Used Date Smoking Tobacco: Every Day Cigarettes 0.5 27.1 Started: 04/06/1997 Smokeless Tobacco: Never Tobacco Cessation:Ready to Q uit: No; Counseling Given: No Alcohol Use Standard Drinks/Week Comments Never 0 (1 standard drink = 0.6 oz pur e alcohol) AUDIT-C Answer Date Recorded Q1: How often do you have a drink containing alc ohol? Never 04/06/2020 Average Number of Drinks Not on file 021 Frequency of Binge Drinking Not on file 03/11 Sex and Gender Information Value Date Recorded Sex Assigned at Not on file Gender Identity Not on file Sexual Orientation Not on file Last Filed Vital Signs Vital Sign Reading Time Taken Comments Blood Pressure 100/57 04/12/2020 4:03 PM SOLAR THERMAL INSTALLER Pulse 63 04/12/2020 4:03 PM SOLAR THERMAL INSTALLER Temperature 36.2 C (97.2 F) 04/12/2020 4:03 PM SOLAR THERMAL INSTALLER Respiratory Rate 16 04/12/2020 4:03 PM SOLAR THERMAL INSTALLER Oxygen Saturation 100% 04/12/2020 4:03 PM SOLAR THERMAL INSTALLER Inhaled Oxygen Concentration 21% 04/12/2020 1 1:30 AM SOLAR THERMAL INSTALLER Weight 96.2 kg (212 lb) 04/06/2020 3:20 AM SOLAR THERMAL INSTALLER Height 180.3 cm (5' 11 ) 04/06/2020 3:20 AM SOLAR THERMAL INSTALLER Body Mass Index 29.57 04/06/2020 3:20 AM SOLAR THERMAL INSTALLER Plan of Treatment Health Maintenance Due Date Last Done Comments DTAP/TDAP/TD VACCINES (1 - Tdap) 2005 HEPATITIS B VACCINE (1 of 3 - 19+ 3-dose series) 2005 PNEUMOCOCCAL VACCINE (1 of 2 - PCV) 2005 COVID-19 VACCINE ( - 2023-2 5 season) 2023 INFLUENZA VACCINE (#1) 2023 DEPRESSION SCREENING 03/10/2024 ZOSTER VACCINE (1 of 2) 02/10/2036 HIV SCREENING Completed 04/06/2020 HEPATITIS C SCREENING Completed 04/10/2020 , 05/27/2017 HIB VACCINE Aged Out No longer eligi ble based on patient's age to complete this topic HPV VACCINE Aged Out No longer eligi ble based on patient's age to complete this topic MENINGOCOCCAL (Group B) VACCINE SHARED DECISION-MAKING Aged Out No longer eligible based on patient's age to complete this topic MENINGOCOCCAL GROUPS A/C/Y/W VACCINE Aged Out No longer eligible b ased on patient's age to complete this topic Procedures Procedure Name Priority Date/Time Associated Diagnosis Comments HEPATITIS C ANTIBODY W RFLX PCR Routine 04/10/2020 9:48 AM SOLAR THERMAL INSTALLER HIV-1 HIV-2 ANTIBODY + HIV P24 AG PANEL Routine 04/06/2020 8:48 AM SOLAR THERMAL INSTALLER Chest pain, unspecified type from Last 3 Months or Most Recently Relevant to Health Maintenance Results * HEPATITIS C ANTIBODY W RFLX PCR (04/10/2020 9:48 AM SOLAR THERMAL INSTALLER) Pathologist [facility] Hepatitis C Antibody <0.1 0.0 - 0.9 s/co ratio 04/11/2020 10:09 AM SOLAR THERMAL INSTALLER [facility] ([facility]) Blood BLOOD SPECIMEN / Unknown Venipuncture / Unknown 04/10/2020 9:48 AM SOLAR THERMAL INSTALLER 04/10/2020 9:51 AM SOLAR THERMAL INSTALLER Narrative [facility] ([facility]) - 04/11/2020 10:09 AM SOLAR THERMAL INSTALLER Performed at: 01 - [facility] [address] [id number] Derrick Worker: Gokul Bravo PhD, Phone: [phone] Tyrell Peterson MD LAB - CHEMISTRY MATILDE CLEANING Performing Organization Address City/[facility]/ZIP Co de Phone Number [facility] ([facility]) [address] [place] [address] * HIV-1 HIV-2 ANTIBODY + HIV P24 AG PANEL (04/06/2020 8:48 AM SOLAR THERMAL INSTALLER) Pathologist [facility] HIV1/2 Ab + P24 Ag Non Reactive Non Reactive 04/06/2020 9:37 AM SOLAR THERMAL INSTALLER [facility] Blood BLOOD SPECIMEN / Unknown Venipuncture / Unknown 04/06/2020 8:48 AM SOLAR THERMAL INSTALLER 04/06/2020 8:55 AM SOLAR THERMAL INSTALLER Narrative [facility] - 04/06/2020 9:37 AM SOLAR THERMAL INSTALLER No Laboratory evidence of HIV infection. Aldo Esqueda MD LAB - CHEMISTRY MATILDE CLEANING [facility] [address] [place] [address] from Last 3 Months or Most Recently Relevant to Health Maintenance Advance Directives * Full Code (Latest Code Status on File) Date Activated Date Inactivated Comments 04/06/2020 3:40 AM 04/12/2020 6:16 PM * Full Code Date Activated Date Inactivated Comments 04/06/2020 3:26 AM 04/06/2020 3:40 AM
--- OUTSIDE RECORDS SUMMARY | 2024-05-29 11:22 | XMS_ITS | Clinical Summary ---
Author Organization [facility] Address [address] [place] [address] Phone Care Team Providers Care Paint And Table Edger Name Role Phone Dane Steinberg MD Primary Care Provider Allergies No known active allergies Medications allopurinol (ZYLOPRIM) 100 MG Tablet Take 1 Tab by mouth daily. 90 Tab 8 Active folic acid (FOLVITE) 1 MG Tablet Take 1 Tab by mouth daily. 30 Tab 1 8 Active HYDROcodone-acet aminophen (NORCO) 5-325 MG TabletIndication s:Moderate to Moderately Severe Pain Take 1-2 Tabs by mouth every 4 hours as needed. 30 Tab 8 Active mirtazapine (REMERON KIRILL-TAB) 15 MG TABLET DISPERSIBLE Take 1 Tab by mouth nightly. 30 Tab 1 8 Active omeprazole (PRILOSEC) 20 MG CAPSULE DELAYED RELEASEIndicatio ns:Stress Ulcer Prophylaxis Take 1 Cap by mouth daily. 30 Cap 1 8 Active colchicine 0.6 MG Tablet Take 1 Tab by mouth 2 times daily as needed for Pain. 60 Tab 8 Active indomethacin (INDOCIN) 50 MG Capsule Take 1 Cap by mouth 3 times daily as needed for Moderate or more severe pain. 20 Cap 8 Active azithromycin (ZITHROMAX) 250 MG Tablet 2 tab(s) daily for 1 day, then 1 tab(s) daily for days 2-5. FOR BRONCHITIS 6 Tab 1 Active ketorolac (TORADOL) 10 MG Tablet Take 1 Tablet by mouth every 6 hours as needed for Moderate or more severe pain. 15 Tablet 2 Active cyclobenzaprine (FLEXERIL) 5 MG Tablet Take 1 Tablet by mouth 3 times daily as needed for Muscle spasms. 15 Tablet 2 Active indomethacin (INDOCIN) 50 MG Capsule Take 1 Capsule by mouth 3 times daily as needed for Moderate or more severe pain. 20 Capsule 2 Active naloxone HCl (Narcan) 4 MG/0.1ML Liquid 1 [place] by Nasal route as needed (opioid overdose). 2 Each 2 Active oxyCODONE-acetam inophen (Percocet) 7.5-325 MG TabletIndication s:Polyarticular psoriatic arthritis (HCC) Take 1 Tablet by mouth every 4 hours as needed for Severe pain. 12 Tablet 3 Active Active Problems Problem Noted Date Diagnosed Date Hypernatremia 06/02/2017 Anemia 06/02/2017 Drug abuse 05/27/2017 Medical non-compliance 05/27/2017 Alkaline phosphatase elevation 05/27/2017 Acute gout 05/27/2017 Debility 05/27/2017 Resolved Problems Problem Noted Date Diagnosed Date Resolved Date Abscess of bursa of right elbow 05/28/2017 06/03/2017 CARISSA (acute kidney injury) 05/27/2017 Elevated uric acid in blood 05/27/2017 06/03/2017 Elevated bilirubin 05/27/2017 8 SIRS (systemic inflammatory response syndrome) 05/27/2017 06/03/2017 Dehydration 05/27/2017 06/03/2017 Family History Medical History Relation Name Comments Alzheimer's Disease Father Heart Surgery Father Hypertension Father Cervical Cancer Mother Obstructive Sleep Apnea Mother Other-comment Mother bowel obstruct ion Relation Name Status Comments Father Mother Social History Tobacco Use Types Packs/Day Years Used Date Smoking Tobacco: Every Day Cigarettes 0.5 15 Smokeless Tobacco: Never Tobacco Cessation:Ready to Q uit: No; Counseling Given: Yes Alcohol Use Standard Drinks/Week Comments Not Currently 0 (1 standard drink = 0.6 oz pur e alcohol) Socially Sexually Active Control Partners Comments Never Sex and Gender Information Value Date Recorded Sex Assigned at Not on file Legal 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 Gender Identity Not on file Sexual Orientation Not on file Last Filed Vital Signs Vital Sign Reading Time Taken Comments Blood Pressure 120/88 09/07/2023 2:00 PM CDT Pulse 69 09/07/2023 2:00 PM CDT Temperature 36.7 C (98.1 F) 09/07/2023 2:00 PM CDT Respiratory Rate 16 09/07/2023 2:00 PM CDT Oxygen Saturation 95% 09/07/2023 2:00 PM CDT Inhaled Oxygen Concentration - - Weight 108.9 kg (240 lb) 09/07/2023 12:55 PM CDT Height 180.3 cm (5' 11 ) 09/07/2023 12:55 PM CDT Body Mass Index 33.47 09/07/2023 12:55 PM CDT Plan of Treatment Health Maintenance Due Date Last Done Comments TdaP Immunization 1986 Hepatitis B Immunization (1 of 3 - 19+ 3-dose series) 2005 Pneumococcal Immunization Combined (1 of 2 - PCV) 2005 Influenza Immunization (#1) 2023 12/11/2013 SARS-COV-2 Immunization ( season) 2023 Respiratory Syncytial Virus (RSV) Immunization (Adult) (1 - 1-dose 75+ series) 2061 Hepatitis C Virus (HCV) Screening Completed 06/21/2022, 04/10/2020, 05/27/2017 Meningococcal Immunization (ACWY) Aged Out No longer eligible b ased on patient's age to complete this topic Rotavirus Immunization Aged Out No lo nger eligible based on patient's age to complete this topic Procedures Procedure Name Priority Date/Time Associated Diagnosis Comments HEPATITIS C ANTIBODY Routine 06/21/2022 11:33 AM CDT Medication management Psoriatic arthritis (HCC) from Last 3 Months or Most Recently Relevant to Health Maintenance Results * HEPATITIS C ANTIBODY (06/21/2022 11:33 AM CDT) hepatitis C antibody 0.14 <1 S/CO [facility] ARCH [id number] 06/21/2022 10:03 PM CDT [facility] Comment: Signal/Cutoff ratio < 0.79 is Nondetected Signal/Cutoff ratio 0.80-0.99 is Grayzone Signal/Cutoff ratio > 0.99 is Detected Supplemental assays are recommended if signal/cutoff ratio is >/=1.00. Signal/cutoff ratio result >/= 5.00 is 97% predictive of positivity for recombinant immunoblot assay (RIBA) and will be reported to the [place] [facility] as required. Blood Venipuncture / Unknown 06/21/2022 11:33 AM CDT 06/21/2022 12:30 PM CDT us Jackie Hale APRN, CNP CHEMISTRY ORDERABLES Final Result [facility] [address] [place] [address], from Last 3 Months or Most Recently Relevant to Health Maintenance Insurance MEDICAID [employer] Advance Directives * No CPR-Full Treatment (Latest Code Status on File) Date Activated Date Inactivated Comments 06/22/2017 4:57 PM 12/11/2017 8:24 AM * No CPR-Full Treatment Date Activated Date Inactivated Comments 05/30/2017 2:14 PM 06/03/2017 2:12 PM No CPR - Ful l Treatment: FULL ARREST: Do Not Attempt Resuscitation. PRE-ARREST: Use entire range of life support measures including intubation and mechanical ventilation in the ICU setting as necessary. Question Answer Comments Physician documentation made in notes? No * Full Code Date Activated Date Inactivated Comments 05/27/2017 6:41 PM 05/30/2017 2:14 PM CPR-Full Rufus atment: FULL ARREST: Attempt Resuscitation/CPR wit intubation and mechanical ventilation. PRE-ARREST: Use entire range of life support measures to stabilize the patient. Care Teams Paint And Table Edger Relationship Specialty Start Date End Date Dane Steinberg MD [address] [place] [address] DR DOSHI [address] [place] [id number] PCP - General Family Medicine 08/08/22
--- OUTSIDE RECORDS SUMMARY | 2024-05-29 11:22 | XMS_ITS | Clinical Summary ---
Author Organization [facility] Address [facility] [place] [address] Care Team Providers Care Television Station Manager Name Role Phone Candice Shane MD Primary Care Provider [phone] Allergies No known active allergies Medications CAROL, 2 PEN, 40 MG/0.4ML pen-injector kit Inject 0.4 mLs (40 mg total) into the skin every 14 (fourteen) days. Wednesdays, every 2 weeks 07/30/2023 Active folic acid (FOLVITE) 1 MG tablet Take 1 tablet (1 mg total) by mouth daily. Active TREXALL 7.5 MG tablet Take 1 tablet (7.5 mg total) by mouth once a week. Mondays Active Allopurinol 200 MG Tab Take 400 mg by mouth daily. Active Active Problems Problem Noted Date Diagnosed Date Arthritis 10/23/2023 Subacromial bursitis of left shoulder joint 07/2019 Anemia 06/02/2017 Alkaline phosphatase elevation 05/27/2017 Debility 05/27/2017 Drug abuse 05/27/2017 Medical non-compliance 05/27/2017 Impacted ear wax 07/01/2016 Hypertension 06/26/2016 Overweight 06/26/2016 Foot pain 11/20/2015 Backache 11/23/2014 Knee pain, bilateral 11/23/2014 Foot swelling 01/25/2014 Gout 03/05/2013 Injury of knee 03/05/2013 Olecranon bursitis, unspecified laterality 03/05 Resolved Problems Problem Noted Date Diagnosed Date Resolved Date Hypernatremia 06/02/2017 06/30/2018 Encounter for preventive health examination 08/15/2011 11/19/2019 Social History Tobacco Use Types Packs/Day Years Used Date Smoking Tobacco: Every Day Cigarettes Smokeless Tobacco: Never Tobacco Cessation:Ready to Q uit: No; Counseling Given: Yes Alcohol Use Standard Drinks/Week Comments Not Currently 0 (1 standard drink = 0.6 oz pur e alcohol) Sex and Gender Information Value Date Recorded Sex Assigned at Not on file Legal Sex Male 5:33 PM CDT Gender Identity Not on file Sexual Orientation Not on file Last Filed Vital Signs Vital Sign Reading Time Taken Comments Blood Pressure 130/77 10/24/2023 3:35 PM CDT Pulse 72 10/24/2023 3:35 PM CDT Temperature 36.3 C (97.4 F) 10/24/2023 3:35 PM CDT Respiratory Rate 18 10/24/2023 3:35 PM CDT Oxygen Saturation 98% 10/24/2023 3:35 PM CDT Inhaled Oxygen Concentration - - Weight 108.9 kg (240 lb) 10/23/2023 3:49 PM CDT Height 180.3 cm (5' 11 ) 10/23/2023 3:49 PM CDT Body Mass Index 33.47 10/23/2023 3:49 PM CDT Plan of Treatment Health Maintenance Due Date Last Done Comments Annual Physical 1989 Pneumococcal Vaccine: Pediatrics (0 to 5 Years) and At-Risk Patients (6 to 64 Years) (1 of 2 - PCV) 02/10/1992 DTaP, Tdap and Td Vaccines ( 1 - Tdap) 2005 Hepatitis B Vaccines (1 of 3 - 19+ 3-dose series) 2005 COVID-19 Vaccine ( - 2023-2 5 season) 2023 Influenza Adult (#1) 2023 12/11/2013 Hepatitis C Completed 06/21/2022, 04/10/2020, 04/10/2020 HPV Vaccines Aged Out No longer eligi ble based on patient's age to complete this topic Meningococcal B Vaccine Aged Out No l onger eligible based on patient's age to complete this topic Meningococcal Vaccine Aged Out No glen rajan eligible based on patient's age to complete this topic RSV Immunizations Under 20 Months Aged Out No longer eligible b ased on patient's age to complete this topic Goals Goal Patient Goal Type Associated Problems Recent Progress Patient-Stated? Author Patient will return to prior living situation and remain independent in ADLs upon discharge from hospital Lifestyle No Swathi Howell, RN Insurance Advance Directives * Full Code (Latest Code Status on File) Date Activated Date Inactivated Comments 10/23/2023 10:53 PM 10/24/2023 5:54 PM Care Teams Television Station Manager Relationship Specialty Start Date End Date Candice Shane MD [address] [place] [address] PCP - General FAMILY PRACTICE 10/24/23
--- OUTSIDE RECORDS SUMMARY | 2024-05-29 11:22 | XMS_ITS | Referral Summary ---
Author Organization [facility] Address [address] [place] [address] Care Team Providers Care Toddler Caregiver Name Role Phone Jony Stoll MD Unavailable [phone] Haydee Singh MD Unavailable Kamar Chirinos MD Primary Care Provider + Allergies No known active allergies Medications allopurinoL (ZYLOPRIM) 100 mg tabletIndicatio ns:prevention of acute gout attack Take 2 tablets (200 mg total) by mouth daily 60 tablet 11 3 Active Additional Information Patient taking differently: 400 mgoral Daily, Indications: prevention of acute gout attack, Informant: Self, Reported on 09/23/2023 folic acid (FOLVITE) 1 mg tabletIndicatio ns:Folate Deficiency Take 1 tablet (1 mg total) by mouth daily 30 tablet 11 3 Active Humira,CF, Pen 40 mg/0.4 mL pen injector kit Inject 0.4 mL (40 mg total) under the skin every 14 (fourteen) days 4 Active clobetasoL-emol lient (TEMOVATE E) 0.05 % cream Acti ve TrexalL 7.5 mg tablet Take 1 tablet (7.5 mg total) by mouth once a week Mondays 4 Active oxyCODONE-aceta minophen (PERCOCET) 5-325 mg per tabletIndicatio ns:Pain Take 1 tablet by mouth every 4 (four) hours as needed for pain 20 tablet 4 Active docusate sodium (COLACE) 100 mg capsuleIndicati ons:constipatio n Take 1 capsule (100 mg total) by mouth 2 (two) times a day 30 capsule 4 Active amoxicillin-cla vulanate (AUGMENTIN) 875-125 mg per tablet Take 1 tablet by mouth every 12 (twelve) hours 14 tablet 4 Active Active Problems Problem Noted Date Diagnosed Date Cholecystitis 10/03/2023 Gallbladder colic 08/18/2023 Chest pain, unspecified type 09/03/2022 Positive D dimer 09/03/2022 Anemia of chronic disease 08/14/2022 Exacerbation of gout 08/11/2022 Assessment & Plan (08/11/2022 2:37 PM CDT): Patient has a history of psoriatic arthritis, psoriasis, chronic tophaceous gout who presents with severe acute gout pain in his ankles, feet, knees significantly above his baseline. CRP high at 201. ESR high at 93. Uric acid high at 8.1. Will restart methotrexate, home meds and give pain medication - Allopurinol 100 mg daily, Methotrexate 7.5 mg every 7 days on mondays. Folic acid 1mg daily. - Tylenol 1, 000 mg Q6h PRN, dilaudid 0.5 mg IV Q3 H PRN, Oxycodone 5 mg Q4H PRN. Psoriatic arthritis of multiple joints 3 Suicidal ideation 08/11/2022 Assessment & Plan (08/11/2022 2:44 PM CDT): Patient says the pain is so bad and he is depressed and he is thinking it would be best if he was either hit by car or driven off a bridge in the car so he would be put out of his misery. He states he only has these thoughts when he is in pain. Due to suicidal ideation, behavioral health consult was placed and recommend awaiting medical clearance prior to searching for an inpatient bed. Closed displaced fracture of proximal phalanx of right little finger 07/13/2022 Chronic tophaceous gout 07/13/2022 Acute pain of left shoulder 04/22/2019 Psoriasis 04/22/2019 Gouty arthritis 04/22/2019 Acute postoperative pain 11/07/2017 Encounter for postoperative wound check 11/08/19 18 Resolved Problems Problem Noted Date Diagnosed Date Resolved Date Hypokalemia 08/11/2022 08/14/2022 Assessment & Plan (08/11/2022 2:40 PM CDT): Potasium initially at 3.1. Replaced with 40 meq oral KCL. Will continue to trend. Social History Tobacco Use Types Packs/Day Years Used Date Smoking Tobacco: Every Day Cigarettes 0.3 15 Smokeless Tobacco: Never Tobacco Cessation:Ready to Q uit: Not Asked; Counseling Given: Not Answered Alcohol Use Standard Drinks/Week Comments Never 0 (1 standard drink = 0.6 oz pur e alcohol) OASIS D0700: Social Isolation Answer Da te Recorded Frequency of experiencing loneliness or isolatio n Never 11/28/2022 OASIS A1250: Transportation Answer Date Recorded Lack of Transportation (Medical) No 11/28/2022 Lack of Transportation (Non-Medical) No 11/28/2022 Patient Unable or Declines to Respond No 11/28/2022 OASIS B1300: Health Literacy Answer Leander e Recorded Frequency of needing help to read materials from doctor or pharmacy Never 11/28/2022 Social Connection and Isolat ion Panel [NHANES] Answer Date Recorded In a typical week, how many times do you talk on the phone with family, friends, or neighbors? More than three times a week 09/05/2022 How often do you get togethe r with friends or relatives? More than three times a week 09/05/2022 How often do you attend chur ch or caodaism services? Never 09/05/2022 Do you belong to any clubs o r organizations such as adventist groups, unions, fraternal or athletic groups, or school groups? No 09/05/2022 How often do you attend meet ings of the clubs or organizations you belong to? Never 09/05/2022 Are you , , di vorced, , never , or living with a partner? Patient declined 09/05/2022 AUDIT-C Answer Date Recorded Frequency of Alcohol Consumption Not on file 09/23/2023 Q2: How many drinks containi ng alcohol do you have on a typical day when you are drinking? Patient does not drink Q3: How often do you have si x or more drinks on one occasion? Never 09/23/2023 Overall Financial Resource Strain (CARDIA) Answe r Date Recorded How hard is it for you to pa y for the very basics like food, housing, medical care, and heating? Not hard at all 09/05/2022 Hunger Vital Sign Answer Date Recorded Within the past 12 months, y ou worried that your food would run out before you got the money to buy more. Never true 09/06/19 23 Within the past 12 months, t he food you bought just didn't last and you didn't have money to get more. Never true 09/05/2022 PRAPARE - Transportation Answer Date Re corded In the past 12 months, has l ack of transportation kept you from medical appointments or from getting medications? No 08/09 In the past 12 months, has l ack of transportation kept you from meetings, work, or from getting things needed for daily living? No 09/05/2022 Housing Stability Vital Sign Answer Leander e Recorded In the last 12 months, was t here a time when you were not able to pay the mortgage or rent on time? No 09/05/2022 In the last 12 months, how many places have you lived? 1 09/05/2022 In the last 12 months, was t here a time when you did not have a steady place to sleep or slept in a senior care (including now)? No 09/05/2022 Personal Safety Answer Date Recorded Have you ever been in or are you currently in a harmful physical or emotional relationship or is someone making you feel afraid or unsafe? Denies 10/22/2023 Education Answer Date Recorded What is the highest level of school you have completed or the highest degree you have received? 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 Gender Identity Not on file Sexual Orientation Not on file Last Filed Vital Signs Vital Sign Reading Time Taken Comments Blood Pressure 134/80 10/22/2023 1:21 PM CDT Pulse 85 10/22/2023 6:15 PM CDT Temperature 36.6 C (97.9 F) 10/22/2023 1:21 PM CDT Respiratory Rate 14 10/22/2023 6:15 PM CDT Oxygen Saturation 98% 10/22/2023 6:15 PM CDT Inhaled Oxygen Concentration - - Weight 108.9 kg (240 lb) 10/22/2023 1:21 PM CDT Height 180.3 cm (5' 11 ) 08/18/2023 2:44 PM CDT Body Mass Index 33.47 08/18/2023 2:44 PM CDT Plan of Treatment Not on file Insurance [id number] [place] [address] [facility] Advance Directives For more information, please contact: [phone] * Full Code (Latest Code Status on File) Date Activated Date Inactivated Comments 10/03/2023 3:44 PM 10/04/2023 5:52 PM * LIMITED - No CPR Date Activated Date Inactivated Comments 09/05/2022 2:48 AM 09/05/2022 3:28 PM Question Answer Comments Provide aggressive medical m anagement before a full cardiopulmonary arrest occurs. Use antibiotics, IV Fluids, and medical treatment unless specifically selected below: No intubation * Full Code Date Activated Date Inactivated Comments 09/03/2022 10:55 PM 09/05/2022 2:48 AM * LIMITED - No CPR Date Activated Date Inactivated Comments 08/11/2022 11:54 AM 08/17/2022 9:45 PM Question Answer Comments Provide aggressive medical m anagement before a full cardiopulmonary arrest occurs. Use antibiotics, IV Fluids, and medical treatment unless specifically selected below: No intubationNo vasopressorsNo non-invasive ventilationNo cardioversionNo internal / external pacemaker * Full Code Date Activated Date Inactivated Comments 08/11/2022 6:26 AM 08/11/2022 11:54 AM Care Teams Toddler Caregiver Relationship Specialty Start Date End Date Kamar Chirinos MD [address] [facility] [place] [address] PCP - General Internal Medicine 10/03/23 Jony Stoll MD [address] [place] [address] DR ERMELINDA Montenegro [facility] [address] [place] [address] Surgeon Orthopedic Surgery 08/15/22 Haydee Singh MD [address] [place] [address] [address]HI [address] [place] [address] Consulting Physician Family Medicine 10/15/22
--- OUTSIDE RECORDS SUMMARY | 2024-05-29 11:22 | XMS_ITS | Clinical Summary ---
Author Organization [facility] Address [address] [place] [address] Care Team Providers Care Hospital Sales Representative Name Role Phone Jony Stoll MD Unavailable [phone] Haydee Singh MD Unavailable Kamar Chirinos MD [...] meq oral KCL. Will continue to trend. Surgical History Surgery Date Site/Laterality Comments ESOPHAGOGASTRODUODENOSCOPY FINGER SURGERY TOE SURGERY ELBOW SURGERY Medical History Medical History Date Comments Gout Degenerative joint disease of left shoulder Hypokalemia 08/11/2022 Anemia Hypokalemia Obesity Psoriasis legs, back stoma ch and arms Family History Medical History Relation Name Comments Arthritis Other Cancer Other Heart disease Other Hypertension Other Stroke Other Relation Name Status Comments Other Social History Tobacco Use Types Packs/Day Years [...] often do you attend chur ch or confucianist services? Never 09/05/2022 Do you belong to any clubs o r organizations such as jehovah's witness groups, unions, fraternal or athletic groups, or [...] place to sleep or slept in a residential (including now)? 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 Gender Identity Not on file Sexual Orientation Not on file Obstetrics History Last Filed Vital Signs Vital Sign Reading [...] 08/18/2023 2:44 PM CDT Plan of Treatment Health Maintenance Due Date Last Done Comments Depression Screening 1986 Hepatitis C Screening 1986 DTaP/Tdap/Td Vaccine (1 - Tdap) 1997 Varicella Vaccines (1 of 2 - 13+ 2-dose series) 1999 Hepatitis B Screening 02/10/2004 Regular Well Visit/Exam 18-64 02/10/2004 Pneumococcal vaccine <65 (1 of 2 - PCV) 2005 Zoster Vaccine (1 of 2) 2005 Influenza Vaccine (#1) 2023 12/11/2013 HPV Vaccines Aged Out No longer eligi ble based on patient's age to complete this topic Insurance [facility] Advance Directives For more information, please contact: [phone] * Full Code (Latest Code Status on [...] 6:26 AM 08/11/2022 11:54 AM Care Teams Hospital Sales Representative Relationship Specialty Start Date End Date Kamar Chirinos MD [address] [facility] [place] [address] PCP - General Internal Medicine 10/03/23 Jony Stoll MD [address] [place] [address] DR ERMELINDA Montenegro [facility] [address] [place] [address] Surgeon Orthopedic Surgery 08/15/22 Haydee Singh MD [address] [place] [address] [address] [place] [address] Consulting Physician Family Medicine 10/15/22
--- OUTSIDE RECORDS SUMMARY | 2024-05-29 11:23 | XMS_ITS | Data Portability ---
Author Organization [place] [facility], Main Office Address [address] [place] [address] Assessment Encounter Date Assessment Date Assessment LastModified by Organization Details LastModified Time 06/13/2022 06/13/2022 This note is dictated and transcribed by [employer]. Bead Forming Machine Set Up Operator variances may occur. Despite proofreading, typographical errors may occur. [email or web address] Not available 07/05/2022 15:08:11 Plan of Treatment Reminders Order Date Submit Date Provider Last Modified By Organization Details Last Modified Time Details Appointments None record ed. Lab None record ed. Referral None record ed. Procedures None record ed. Surgeries None record ed. Imaging None record ed. Medication Orders None record ed. Patient TargetsNo targets recorded. Patient InstructionsNo instructions recorded. Reason for Referral None Reported. Results Created Date Observation Date Name Description Value Unit Range Abnormal Flag Note LastModifiedBy Organization Detail LastModifiedTime 04/24/1904/24/2022 XR, foot, 3 or more view [facility] [address] [address] Patien t Name: BELEN FRANCO Access ion #: [id number] Sex: M : 1984 3 Locati on: RAD Attend ing Physic agueda: NEHAL NAYLOR Orderi ng Physic agueda: NEHAL NAYLOR Exam Date: 023 12:57 PM Exam Name: XR FOOT BILAT 3V Admitt ing Diagno sis(es ): RADIOL OGY REPORT - FINAL EXAM: XR FOOT BILAT 3V HISTOR Y: PAIN 37-yea r-old male with chroni c bilate ral foot pain and lumps, curren tly being treate d for gout. COMPAR ANNABEL: None availa ble. TECHNI QUE: Three views of the bilate ral feet were perfor med. FINDIN GS: See below. IMPRES DAPHNIE: Expans ile lytic lesion s throug hout the bilate ral feet, primar bandar articu lar or juxta- articu lar. There are cortic al erosio ns and joint destru ction, most Page 1 of 2 [facility] Patien t Name: BELEN FRANCO Access ion #: [id number] Sex: M : 1984 3 Exam Date: 12:57 PM Exam Name: XR FOOT BILAT 3V Admitt ing Diagno sis(es ): severe ly involv ing the right 1st MTP joint, right 4th PIP joint, right talar head, bases of the left 2nd-4t h metata rsal bones, and bilate ral mid feet. There are large bilate ral ankle effusi ons and soft tissue promin ence of the latera l portio ns of the mid feet (left greate r than right) . This appear ance may be due to severe gout. Correl ate with uric acid level and/or bone biopsy . Create d and electr onical ly signed by: Marco rivera MD Signed Date: 3:05 PM (CT) Dictat ed by: Marco rivera MD DD: 3:05 PM (CT) DT: 3:05 PM (CT) Page 2 of 2 [id number] [facility] ([facility]) [address] [place], [address], 05/08/2022 16:44:44 Result Notes None recorded. Problems Name Problem SNOMED Code Status Onset Date Resolution Date Notes Provider Name and Address Organization Details Recorded Time Pain in both feet 8396180136914 9102 Active 2022 Not Available [facility] 3 16:43:29 Gouty arthropath y 595023658 Active 2022 Not Available [facility] 3 16:43:30 Gouty arthritis of the ankle and/or foot 885862104 Active 2022 Not Available [facility] 3 16:43:30 Viola gutierrez 065954242 Active 2022 Not Available [facility] 3 16:43:30 Problem Notes None recorded. Procedures Surgical History Date Name Laterality Status Provider Name and Address Organization Details Recorded Time Toe completed Not Available [facility] 03/2022 16:42:38 procedure on elbow completed Not Available [facility] 05/08/2022 16:42:38 Imaging Results Imaging Date Name Status LastModified by Organiz ation Details LastModified Time 04/24/2022 XR, foot, 3 or more view completed [id number] [facility] ([facility]) [address] [place], [address], 05/08/2022 16:44:44 Procedure Notes None recorded. Medical Equipment None Reported. Medications Name Sig Start Date Stop Date Status Note LastModified by Organization Details LastModified Time cyclobenzaprin e 10 mg tablet active Not Available Not Availab le Not Available hydrocodone 5 mg-acetaminoph en 325 mg tablet TAKE 1 OR 2 TABLETS BY MOUTH EVERY 4 HOURS NEEDED FOR PAIN FOR UP TO 5 DAYS active Not Available Not Available No t Available prednisone 20 mg tablet active Not Available Not Available No t Available prednisone 5 mg tablet TAKE 1 TABLET BY MOUTH EVERY DAY active Not Available Not Available No t Available sulfamethoxazo le 800 mg-trimethopri m 160 mg tablet TAKE 1 TABLET BY MOUTH TWICE DAILY FOR 7 DAYS active Not Available Not Available No t Available amoxicillin 500 mg tablet TAKE 1 TABLET BY MOUTH TWICE DAILY WITH FOOD active Not Available Not Available No t Available ketorolac 10 mg tablet TAKE 1 TABLET BY MOUTH EVERY 6 HOURS NEEDED FOR MODERATE TO SEVERE PAIN active Not Available Not Available No t Available indomethacin 50 mg capsule TAKE 1 CAPSULE BY MOUTH THREE TIMES DAILY WITH MEALS active Not Available Not Available No t Available folic acid 1 mg tablet TAKE 1 TABLET BY MOUTH EVERY DAY WITH A MEAL active Not Available Not Available No t Available ibuprofen 600 mg tablet active Not Available Not Available No t Available Trexall 15 mg tablet TAKE 1 TABLET BY MOUTH EVERY WEEK WITH A MEAL active Not Available Not Available No t Available indomethacin ER 75 mg capsule,extend ed release TAKE 1 CAPSULE BY MOUTH EVERY DAY WITH MEALS active Not Available Not Available No t Available cyclobenzaprin e 5 mg tablet TAKE 1 TABLET BY MOUTH THREE TIMES DAILY NEEDED FOR MUSCLE SPASMS active Not Available Not Available No t Available clobetasol-emo llient 0.05 % topical cream active Not Available Not Availabl e Not Available Tylenol 2022 active Not Available Not Available Not Avai lable naloxone 4 mg/actuation nasal spray USE 1 SPRAY IN ONE NOSTRIL NEEDED FOR OPOID REVERSAL active Not Available Not Available No t Available Vitals Date Recorded Body mass index (BMI) Body height Oxygen saturation Oxygen saturation in Arterial blood by Pulse oximetry Heart rate Respiratory rate Body weight Systolic blood pressure Diastolic blood pressure Provider Name and Address Organization Details Last Updated DateTime 3 30 kg/m2 180.34 cm 98 % 98 % 85 /min 14 /min 45255.3 6 g 113 mm[Hg] 65 mm[Hg] Not Available [facility] 3 16:42:52 Date Recorded Body height Heart rate Respiratory rate Oxygen saturation Oxygen saturation in Arterial blood by Pulse oximetry Systolic blood pressure Diastolic blood pressure Provider Name and Address Organization Details Last Updated DateTime 3 180.34 cm 75 /min 14 /min 98 % 98 % 132 mm[Hg] 78 mm[Hg] Sury [place] [employer] [facility] 3 14:15:45 Social History Question Answer Notes LastModified by Organizat ion Details LastModified Time Tobacco Smoking Status Current Every Day Smoker Not Available [facility] 05/08/2022 16:42:29 What Is Your Level Of Alcohol Consumption? None [id number] Information not available 05/08/2022 What Is Your Level Of Caffeine Consumption? Moderate [id number] Information not available 05/08/2022 What Was The Date Of Your Most Recent Tobacco Screening? 04/23/2022 [id number] Information not available 05/08/2022 Do You Use Any Illicit Or Recreational Drugs? No [id number] Information not available 05/08/2022 Has Tobacco Cessation Counseling Been Provided? No [id number] Information not available 05/08/2022 Do You Or Have You Ever Used Any Other Forms Of Tobacco Or Nicotine? No [id number] Information not available 05/08/2022 Sex: Unknown Functional Status None recorded. Mental Status None recorded. Family History Nothing Reported. Medical History Condition Response GOUT Y Past Encounters Encounter ID Performer Location Encounter Start Date Encounter Closed Date Diagnosis/Indication Diagnosis SNOMED-CT Code Diagnosis ICD10 Code Diagnosis Note [id number] [facility] [place] [address] [place] [address] 04/23/2022 00:00:00 04/23/2022 15:17:53 [id number] Nehal Tristan DPM [facility] [place] [address] [place] [address] 06/13/2022 14:00:20 07/05/2022 15:51:10 Gouty arthritis of the ankle and/or foot 427028333 M10.079 May benefit from rheumatolo gy referralco ntinue restrictiv e dietno high protein mealspatie nt to stay hydrated with waterwatch feet daily for open wounds infection if present seek medical attention immediatel ycontinue indomethac infollow-u p as needed Gouty tophus 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 M 1A.9XX1 as above Pain in both feet 182814 6421 1493361 M79.671 M79.672 as above Health Concerns Section Related Observation LastModified by Organization Detai ls LastModified Time None Recorded Concern Status LastModified by Organization Details LastModified Time None Recorded Advance Directives Directive None Recorded Payers Encounter Date Sequence Insurance Name Policy Number Policy Yoon Covered Member ID Yoon Member ID Guarantor Name 06/13/2022 1 [facility] ON OR AFTER 09/07/20 (MEDICAID REPLACEMENT - HMO) William Vail [id number] William Vail Notes Date Note Type Note Provider Name and Address Organization Details Recorded Time 06/13/2022 text/html . Patient is a 37-year-old male who returns the office for follow-up on gouty arthritis. Patient was educated on eating habits and will continue taking indomethacin for his gout. Patient states he has mild pain to the joints daily. Patient denies any open wounds. Patient denies any fever, chills, nausea vomiting. Nehal Tristan DPM [address], [address], [place], [address], [facility] 07/05/2022 15:08:59
--- NOTE | 2024-05-29 11:49 | ED.EXTPRO ---
HPI - Extremity Problem General Chief complaint: Extremity Problem,Nontraumatic Stated complaint: left pinky is numb Source: patient Mode of arrival: ambulatory Limitations: no limitations History of Present Illness HPI Narrative: Patient presents for evaluation of left hand pain. Symptom onset yesterday. He denies any precipitating injury. Pain is in the 5th metacarpal and shoots into the 5th digit of the left hand. He has a history of gout and has multiple deformities, nodules and decreased range of motion both hands. He was previously on indomethacin but that was discontinued due to his kidney function. He is right-hand dominant. He states his current pain is not consistent with pain he has experienced previously with gout. Related Data Home Medications ?Medication ?Instructions ?Recorded ?Confirmed ?Last Taken ?Type allopurinol 100 mg tablet 100 mg PO DAILY 07/07/22 09/05/23 Unknown History folic acid 1 mg tablet 1 mg PO DAILY 07/07/22 09/05/23 Unknown History methotrexate sodium 7.5 mg tablet 7.5 mg PO DAILY 08/18/23 09/05/23 Unknown History (Trexall) Allergies Allergy/AdvReac Type Severity Reaction Status Date / Time No Known Allergies Allergy Verified 09/05/23 12:18 Review of Systems Review of Systems: CONSTITUTIONAL: Denies fever, chills, or sweats. EYES: Denies visual changes, redness, or discharge. ENT: Denies rhinorrhea, congestion, sore throat, or otalgia. CARDIOVASCULAR: Denies chest pain, palpitations, or edema. RESPIRATORY: Denies cough or dyspnea. GASTROINTESTINAL: Denies abdominal pain, nausea, vomiting, or diarrhea. GENITOURINARY: Denies dysuria or hematuria. SKIN: Denies rash or itching. MUSCULOSKELETAL: Reports pain in the left hand which radiates into the 5th digit NEUROLOGIC: Denies headache, numbness, dizziness, or weakness. PSYCHIATRIC: Denies anxiety or depression. [facility] Past Medical History Medical History Proximal phalanx fracture of finger Gout Surgical History Surgical History H/O hand surgery Family History Family History Mother Family history non-contributory Social History Social History Smoking packs per day: 0.5 Smoking cigarettes per day: 10.0 Smoking status: Current every day smoker Alcohol intake: never Substance use: never Living arrangements: with family Gender identity (if verbalized by the patient): Male Spiritual care concerns: No Exam Narrative: GENERAL: Well-appearing, well-nourished, and in no acute distress. HEAD: Normocephalic, atraumatic. EYES: PERRLA and EOMI. ENT: Nares clear, no rhinorrhea or epistaxis. Mucous membranes moist. Oropharynx without tonsillar hypertrophy exudate or other lesions. Bilateral TMs pearly key nonbulging NECK: Supple. No adenopathy or masses. No carotid bruits or JVD CHEST: Clear to auscultation. No respiratory distress. No wheezes rales or rhonchi HEART: Regular rate and rhythm. No murmur heard. Normal peripheral pulses. ABDOMEN: Soft, nontender, nondistended, normal active bowel sounds. EXTREMITIES: He has multiple chronic nodules and deformities noted to his hands which are contracted. There is tenderness over the left 5th metacarpal SKIN: Warm, dry, no rash. NEURO: No focal deficits. Alert and oriented x3. PSYCH: Normal mood and affect. Course Course Emergency Course: This is a 39-year-old male who presented for evaluation of left hand pain. He has chronic deformities in both hands. He does not feel like his current pain is consistent with gout. His x-ray showed chronic inflammatory changes. I do not appreciate any evidence of infection. Patient denies any redness or change in appearance of the skin of his hands. We agree to being discharged with Medrol Dosepak and hydrocodone. He has limited pain management options as he cannot take NSAIDs and tramadol has been ineffective in the past. This hydrocodone script would not transmitted electronically so I provided him with a paper prescription. I recommended he follow-up with a hand specialist and provided him with the contact information. He should go to the emergency department in the event that he has intractable pain. Patient in agreement with plan of care. Level of Care: Express Care Visit Vital Signs Vital signs: Vital Signs Temperature 36.4 C 05/29/24 11:22 Pulse Rate 91 05/29/24 11:22 Respiratory Rate 20 05/29/24 11:22 Blood Pressure 145/85 H 05/29/24 11:22 Pulse Oximetry 99 05/29/24 11:22 Oxygen Delivery Room Air 05/29/24 11:22 Temperature 36.4 C 05/29/24 11:22 Pulse Rate 91 05/29/24 11:22 Respiratory Rate 20 05/29/24 11:22 Blood Pressure 145/85 H 05/29/24 11:22 Pulse Oximetry 99 05/29/24 11:22 Oxygen Delivery Room Air 05/29/24 11:22 MDM - Extremity (Nontraumatic) Imaging Data Radiologist's impression: XR hand LT min 3V 05/29/2024 12:01 Indication: Pain in the fifth metacarpal Procedure: 3 views left hand Comparison: No prior studies for comparison. Findings: There are erosive changes involving multiple metacarpal phalangeal and interphalangeal joints as well as intercarpal joints. Degenerative change and erosions are most prominent at the first MCP, second MCP and PIP joints as well as the fifth PIP joint. There is soft tissue swelling of the second-fifth digits. No foreign bodies. There is ankylosis of the second PIP joint with ventral subluxation of the proximal phalanges of the MCP joints of the second-fifth digits. Impression: 1: Advanced deformity of multiple intercarpal, metacarpophalangeal and interphalangeal joints with associated lucencies and erosions as well as ankylosis at the second PIP joint. This constellation of findings is suspicious for inflammatory arthropathy such as rheumatoid arthritis or psoriasis. Clinically correlate. Infection is less favored in the absence of appropriate clinical findings. Discharge Plan Discharge Clinical Impression: Hx of gout, Chronic arthritis Patient Disposition: Home, Self-Care Condition: Stable Instructions: Antibiotic Form, Gout (ED), Arthritis (ED) Patient Language: Moldovan Prescriptions: New methylprednisolone 4 mg tablets,dose pack See Rx Instructions .ROUTE .COMPLEX Qty: 21 0RF Rx Instructions: for 6 days hydrocodone-acetaminophen 5-325 mg tablet 1 - 2 tablet PO Q6H PRN (Reason: pain) Qty: 15 0RF No Action allopurinol 100 mg tablet 100 mg PO DAILY folic acid 1 mg tablet 1 mg PO DAILY Trexall 7.5 mg tablet 7.5 mg PO DAILY Follow-up/Referrals: Judit Seals MD [Physician] - Time of Disposition: 12:44
== END 2024-05-29 12:53 | disposition home or self-care (01) ==
PROVIDERS: Emergency Provider Nurse Practitioner
DX: M1A.9XX0 Chronic gout, unspecified, without tophus (tophi) (principal); F17.210 Nicotine dependence, cigarettes, uncomplicated
CPT/HCPCS: 73130; 99213; G0463

== ENCOUNTER 2024-10-04 14:59 | Emergency (ER) | payer OTHER, SELFPAY ==
--- OUTSIDE RECORDS SUMMARY | 2024-10-04 15:03 | XMS_ITS | Data Portability ---
Author Organization [facility] Address [address] [place] [address] Assessment Encounter Date Assessment Date Assessment LastModified by Organization Details LastModified Time 02/13/2024 02/13/2024 William Vial is a 38y/o M with PMH of psoriatic arthritis, tophaceous gout, and tobacco use who presents today for 6-month follow up appointment. Pt's case was discussed w/resident. Documentation was reviewed, and I agree w/resident's note. Dr. Garner [email or web address] Not available 02/16/2024 16:05:30 06/14/2024 06/14/2024 Pt's case was discussed w/resident. Documentation was reviewed, and I agree w/resident's note. Dr. Pascual [email or web address] Not available 06/17/2024 14:39:48 Plan of Treatment Reminders Order Date Submit Date Provider Last Modified By Organization Details Last Modified Time Details Appointments None recorded. Lab CMP, serum or plasma 2024 025 [facility], [address] [facility], [place], [address], 5 06:19:49 Referral rheumatolog ist referral 2024 025 [email or web address] [facility] (Rheumatology ), [address] [place] [address], , [place], [address], 5 11:49:46 physical therapist referral 2023 024 [email or web address] Miranda [facility], [address] [facility] [place], [address], 5 10:16:45 cosmetic surgeon referral 2023 [email or web address] Anny Orozco [facility], [address] [place], [address], 11:40:45 Procedures None recorded. Surgeries None recorded. Imaging None recorded. Medication Orders Voltaren Arthritis Pain 1 % topical gel 2023 [id number], [address], [place], [phone], 17:35:48 cyclobenzap rine 10 mg tablet 2023 [facility] #[id number], [address], [place], [id number], 17:35:47 ibuprofen 800 mg tablet 2023 [facility] [employer] [facility] #[id number], [address], [place], [id number], 17:17:44 Patient TargetsNo targets recorded. Patient Instructions Encounter Date Encounter Id Patient Instructions Last Modified By Organization Details Last Modified Time 09/09/2023 [id number] A healthy lifestyle: care instructions Not available [...] MD [email or web address] Not available 09/09/2023 16:04:16 09/16/2023 [id number] A healthy lifestyle: care instructions [email or web address] Not available 09/16/2023 12:24:42 02/13/2024 [id number] back care and preventing injuries: care instructions [email or web address] Not available 02/13/2024 17:35:42 06/04/2024 [id number] A healthy lifestyle: care instructions [email or web address] Not available 06/04/2024 13:14:34 I saw the patien t with the resident. I agree with the resident's assessment and plan as documented Denice Joyce MD [email or web address] Not available 06/04/2024 13:13:56 06/14/2024 [id number] A healthy lifestyle: care instructions [email or web address] Not available 06/14/2024 17:38:38 Quitting Tobacco : Care Instructions [email or web address] Not available 06/14/2024 17:38:38 Reason for Referral [employer] Referral for Paro nychia of toe of left foot Referring Physician: Olivia Reyes, [employer], Encounter Date: 09/09/2023 Physical Therapist Referral for Low back pain Referring Physician: Jose Shane, [employer], Encounter Date: 02/13/2024 Performance Improvement Specialist Referral for Chronic tophaceous gout Referring Physician: Mario Mojica [employer], Encounter Date: 06/14/2024 Results Created Date Observation Date Name Description Value Unit Range Abnormal Flag Note LastModifiedBy Organization Detail LastModifiedTime 08/13/19 24 08/14/2023 COMP. METAB OLIC PANEL (14) glucose 90 mg/dL 70-99 Not Available [facility] ([facility]) [address] [place], [address], 08/14/2023 13:11:24 08/13/19 24 08/14/2023 COMP. METAB OLIC PANEL (14) BUN 14 mg/dL 6-20 Not Available [facility] ([facility]) [address] [place], [address], 08/14/2023 13:11:24 08/13/19 24 08/14/2023 COMP. METAB OLIC PANEL (14) creatinine 1.58 mg/dL 0.76-1 .27 above high normal Not Available [facility] ([facility]) [address], [place], [address], 08/14/2023 13:11:24 08/13/19 24 08/14/2023 COMP. METAB OLIC PANEL (14) eGFR 57 mL/mi n/1.7 3 >59 below low normal Not Available [facility] ([facility]) [address], [place], [address], 08/14/2023 13:11:24 08/13/19 24 08/14/2023 COMP. METAB OLIC PANEL (14) BUN/creatini ne ratio 9 9-20 Not Available [facility] ([place] [facility]) [address] [facility], [place], [address], 08/14/2023 13:11:24 08/13/19 24 08/14/2023 COMP. METAB OLIC PANEL (14) sodium 144 mmol/ L 134-14 4 Not Available [facility] ([place] [facility]) [address] [facility], [place], [address], 08/14/2023 13:11:24 08/13/19 24 08/14/2023 COMP. METAB OLIC PANEL (14) potassium 4.9 mmol/ L 3.5-5. 2 Not Available [facility] ([place] [facility]) [address] [facility] [place], [address], 08/14/2023 13:11:24 08/13/19 24 08/14/2023 COMP. METAB OLIC PANEL (14) chloride 107 mmol/ L 96-106 above high normal Not Available [facility] ([place] [facility]) [address] [facility] [place], [address], 08/14/2023 13:11:24 08/13/19 24 08/14/2023 COMP. METAB OLIC PANEL (14) carbon dioxide, total 20 mmol/ L 20-29 Not Available [facility] ([place] [facility]) [address] [facility] [place], [address], 08/14/2023 13:11:24 08/13/19 24 08/14/2023 COMP. METAB OLIC PANEL (14) calcium 9.6 mg/dL 8.7-10 .2 Not Available [facility] ([place] [facility]) [address] [place], [address], 08/14/2023 13:11:24 08/13/19 24 08/14/2023 COMP. METAB OLIC PANEL (14) protein, total 6.2 g/dL 6.0-8. 5 Not Available [facility] ([place] [facility]) [address] [place], [address], 08/14/2023 13:11:24 08/13/19 24 08/14/2023 COMP. METAB OLIC PANEL (14) albumin 4.4 g/dL 4.1-5. 1 Not Available [facility] ([facility]) [address] [place], [address], 08/14/2023 13:11:24 08/13/19 24 08/14/2023 COMP. METAB OLIC PANEL (14) globulin, total 1.8 g/dL 1.5-4. 5 Not Available [facility] ([facility]) [address] [facility] [place], [address], 08/14/2023 13:11:24 08/13/19 24 08/14/2023 COMP. METAB OLIC PANEL (14) A/G ratio 2.4 1.2-2. 2 above high normal Not Available [facility] ([place] [facility]) [address] [place], [address], 08/14/2023 13:11:24 08/13/19 24 08/14/2023 COMP. METAB OLIC PANEL (14) bilirubin, total 0.6 mg/dL 0.0-1. 2 Not Available [facility] ([place] [facility]) [address] [facility] [place], [address], 08/14/2023 13:11:24 08/13/19 24 08/14/2023 COMP. METAB OLIC PANEL (14) alkaline phosphatase 137 IU/L 44-121 above high normal Not Available [facility] ([facility]) [address] [place], [address], 08/14/2023 13:11:24 08/13/19 24 08/14/2023 COMP. METAB OLIC PANEL (14) AST (SGOT) 33 IU/L 0-40 Not Available [facility] ([facility]) [address] [facility], [place], [address], 08/14/2023 13:11:24 08/13/19 24 08/14/2023 COMP. METAB OLIC PANEL (14) ALT (SGPT) 36 IU/L 0-44 Not Available [facility] ([facility]) [address] [place], [address], 08/14/2023 13:11:24 10/23/19 24 10/27/2023 Bacte vikki ident ified in Wound by [employer] re specimen source identified TOE,LE FT SPEC DESCR IPTIO N TOE,L EFT 10/22 7:[address] [facility] Not Available Not Available 05/07/2024 17:56:46 10/23/19 24 10/27/2023 Bacte vikki ident ified in Wound by [employer] cultu re service comment NO SPECIA L REQUES T SPECI AL REQUE STS NO SPECI AL REQUE ST 10/22 7:[address] [facility] Not Available Not Available 05/07/2024 17:56:46 10/23/1910/27/2023 Bacte vikki ident ified in Wound by [employer] cultu re microscopic observation [identifier] in specimen by gram stain NO WHITE BLOOD CELLS SEEN GRAM STAIN RESUL T NO WHITE BLOOD CELLS SEEN 10/23 11:[address] [facility] Not Available Not Available 05/07/2024 17:56:46 10/23/19 24 10/27/2023 Bacte vikki ident ified in Wound by [employer] cultu re microscopic observation [identifier] in specimen by gram stain NO ORGANI SMS SEEN GRAM STAIN RESUL T NO ORGAN ISMS SEEN 10/23 11:[address] [facility] Not Available Not Available 05/07/2024 17:56:46 10/23/19 24 10/27/2023 Bacte vikki ident ified in Wound by Aerob [employer] cultu re bacteria identified in specimen by culture NO GROWTH 3 DAYS CULTU RE RESUL T NO GROWT H 3 DAYS 10/26 10:[address] [facility] Not Available Not Available 05/07/2024 17:56:46 10/23/19 24 10/27/2023 Bacte vikki ident ified in Wound by Aerob e cultu re bacteria identified in specimen by culture NOTE: WOUND AND TISSUE CULTUR ES ARE ROUTIN MADISON SCREEN ED FOR AEROBI C ORGANI SMS ONLY. CULTU RE RESUL T NOTE: WOUND AND TISSU E CULTU RES ARE ROUTI VERA SCREE ALEC FOR AEROB IC ORGAN ISMS ONLY. 10/26 10:[address] [facility] Not Available Not Available 05/07/2024 17:56:46 10/23/19 24 10/23/2023 C react ekaterina prote in [Mass /volu me] in Serum or Plasm a C reactive protein [mass/volume ] in serum or plasma 2.94 mg/dL high: 0.29mg /dL high C-ZACK CTIVE PROTE IN 2.94 (H) <0.29 mg/dL 10/22 5:[address] [facility] Not Available Not Available 05/07/2024 17:56:46 [...] - 99 MG/DL 10/22 5:[address] [facility] Not Available Not Available 05/07/2024 17:56:46 10/23/19 24 10/23/2023 Compr ehens ekaterina metab olic 1999 panel - Serum or Plasm a urea nitrogen [mass/volume ] in serum or plasma 15 text: 7 - 18 mg/dL BUN 15 7 - 18 MG/DL 10/22 5:[address] [facility] Not Available Not Available 05/07/2024 17:56:46 10/23/19 24 10/23/2023 Compr ehens ekaterina metab olic 1999 panel - Serum or Plasm a creatinine [mass/volume ] in serum or plasma 1.46 text: 0.7 - 1.3 mg/dL high CREAT ININE S/P/B 1.46 (H) 0.7 - 1.3 MG/DL 10/22 5:[address] [facility] Not Available Not Available 05/07/2024 17:56:46 10/23/19 24 10/23/2023 Compr ehens ekaterina metab olic 1999 panel - Serum or Plasm a sodium [moles/volum e] in serum or plasma 143 text: 136 - 145 mmol/L SODIU M S/P/B 143 136 - 145 MMOL/ L 10/22 5:[address] [facility] Not Available Not Available 05/07/2024 17:56:46 10/23/19 24 10/23/2023 Compr ehens ekaterina metab olic 2000 panel - Serum or Plasm a potassium [moles/volum e] in serum or plasma 4.3 text: 3.5 - 5.1 mmol/L POTAS SIUM S/P/B 4.3 3.5 - 5.1 MMOL/ L 10/22 5:01 PM [facility]T [facility] Not Available Not Available 05/07/2024 17:56:46 10/23/19 24 10/23/2023 Compr ehens ekaterina metab olic 2000 panel - Serum or Plasm a chloride [moles/volum e] in serum or plasma 112 text: 100 - 108 mmol/L high CHLOR UMAIR S/P/B 112 (H) 100 - 108 MMOL/ L 10/22 5:[address] [facility] Not Available Not Available 05/07/2024 17:56:46 10/23/19 24 10/23/2023 Compr ehens ekaterina metab olic 2000 panel - Serum or Plasm a carbon dioxide, total [moles/volum e] in serum or plasma 26.4 text: 21 - 32 mmol/L CO2 26.4 21 - 32 MMOL/ L 10/22 5:[address] [facility] Not Available Not Available 05/07/2024 17:56:46 10/23/19 24 10/23/2023 Compr ehens ekaterina metab olic 2000 panel - Serum or Plasm a calcium [mass/volume ] in serum or plasma 10 text: 8.5 - 10.1 mg/dL CALCI UM S/P/B 10.0 8.5 - 10.1 MG/DL 10/22 5:[address] [facility] Not Available Not Available 05/07/2024 17:56:46 10/23/19 24 10/23/2023 Compr ehens ekaterina metab olic 2000 panel - Serum or Plasm a bilirubin.to humaira [mass/volume ] in serum or plasma 0.8 text: 0.2 - 1.2 mg/dL BILIR UBIN TOTAL S/P/B 0.8 0.2 - 1.2 MG/DL 10/22 5:01 PM [facility] Not Available Not Available 05/07/2024 17:56:46 10/23/19 24 10/23/2023 Compr ehens ekaterina metab olic 2000 panel - Serum or Plasm a protein [mass/volume ] in serum or plasma 7.2 text: 6.4 - 8.2 g/dL TOTAL PROTE IN S/P/B 7.2 6.4 - 8.2 G/DL 10/22 5:[address] [facility] Not Available Not Available 05/07/2024 17:56:46 10/23/19 24 10/23/2023 Compr ens ekaterina metab olic 1999 panel - Serum or Plasm a albumin [mass/volume ] in serum or plasma 3.7 text: 3.4 - 5.0 g/dL ALBUM IN S/P/B 3.7 3.4 - 5.0 G/DL 10/22 5:[address] [facility] Not Available Not Available 05/07/2024 17:56:46 10/23/19 24 10/23/2023 Compr ens ekaterina metab olic 1999 panel - Serum or Plasm a aspartate aminotransfe rase [enzymatic activity/vol ume] in serum or plasma 49 U/L low: 15U/Lh igh: 37U/L high AST 49 (H) 15 - 37 U/L 10/22 5:[address] [facility] Not Available Not Available 05/07/2024 17:56:46 10/23/19 24 10/23/2023 Compr ens ekaterina metab olic 1999 panel - Serum or Plasm a alanine aminotransfe rase [enzymatic activity/vol ume] in serum or plasma 57 U/L low: 16U/Lh igh: 60U/L ALT 57 16 - 60 U/L 10/22 5:[address] [facility] Not Available Not Available 05/07/2024 17:56:46 10/23/19 24 10/23/2023 Compr ehens ekaterina metab olic 2000 panel - Serum or Plasm a alkaline phosphatase [enzymatic activity/vol ume] in serum or plasma 158 U/L low: 50U/Lh igh: 136U/L high ALKAL INE PHOSP HATAS E S/P/B 158 (H) 50 - 136 U/L 10/22 5:[address] [facility] Not Available Not Available 05/07/2024 17:56:46 10/23/19 24 10/23/2023 Compr ehens ekaterina metab olic 2000 panel - Serum or Plasm a anion gap in serum or plasma 4.6 text: 5 - 15 mmol/L low ANION GAP 4.6 (L) 5 - 15 MMOL/ L 10/22 5:[address] [facility] Not Available Not Available 05/07/2024 17:56:46 10/23/19 24 10/23/2023 Compr ehens ekaterina metab olic 2000 panel - Serum or Plasm a urea nitrogen/cre atinine [mass ratio] in serum or plasma 10.3 low: 6high: 26 BUN CREAT ININE RATIO 10.3 6 - 26 10/22 5:[address] [facility] Not Available Not Available 05/07/2024 17:56:46 10/23/19 24 10/23/2023 Compr ehens ekaterina metab olic 2000 panel - Serum or Plasm a albumin/glob ulin [mass ratio] in serum or plasma 1.1 text: 1.0 - 2.0 ratio A/G RATIO 1.1 1.0 - 2.0 RATIO 10/22 5:[address] [facility] Not Available Not Available 05/07/2024 17:56:46 10/23/19 24 10/23/2023 Compr ehens ekaterina metab olic 2000 panel - Serum or Plasm a glomerular filtration rate/1.73 sq M.predicted [volume rate/area] in serum, plasma or blood by creatinine-b ased formula (CKD-epi 2020) 63 text: >90 mL/min /1.73 M2 low GFR ESTIM ATE 63 (L) >90 ML/NE N/1.7 3 M2 10/22 5:[address] [facility] Not Available Not Available 05/07/2024 17:56:46 [...] (H) <15 MM/HR 10/22 5:[address] [facility] Not Available Not Available 05/07/2024 17:56:46 [...] 11.0 x10'3 /uL 10/22 4:[address] [facility] Not Available Not Available 05/07/2024 17:56:45 10/23/19 24 10/23/2023 CBC W Auto Diffe renti al panel - Blood erythrocytes [#/volume] in blood by automated count 4.89 text: 4.70 - 6.10 x10'6/ uL RBC 4.89 4.70 - 6.10 x10'6 /uL 10/22 4:[address] [facility] Not Available Not Available 05/07/2024 17:56:45 10/23/19 24 10/23/2023 CBC W Auto Diffe renti al panel - Blood hemoglobin [mass/volume ] in blood 14 text: 14.0 - 18.0 g/dL HGB 14.0 14.0 - 18.0 G/DL 10/22 4:[address] [facility] Not Available Not Available 05/07/2024 17:56:45 10/23/19 24 10/23/2023 CBC W Auto Diffe renti al panel - Blood hematocrit [volume fraction] of blood 44.8 % low: 43%hig h: 54% HCT 44.8 43.0 - 54.0 % 10/22 4:[address] [facility] Not Available Not Available 05/07/2024 17:56:45 10/23/19 24 10/23/2023 CBC W Auto Diffe renti al panel - Blood MCV [entitic volume] 91.6 text: 80.0 - 94.0 fL MCV 91.6 80.0 - 94.0 FL 10/22 4:[address] [facility] Not Available Not Available 05/07/2024 17:56:45 10/23/19 24 10/23/2023 CBC W Auto Diffe renti al panel - Blood MCH [entitic mass] 28.6 pg low: 27pghi gh: 31pg MCH 28.6 27.0 - 31.0 PG 10/22 4:[address] [facility] Not Available Not Available 05/07/2024 17:56:45 10/23/19 24 10/23/2023 CBC W Auto Diffe renti al panel - Blood MCHC [mass/volume ] 31.3 text: 32.0 - 36.0 g/dL low MCHC 31.3 (L) 32.0 - 36.0 G/DL 10/22 4:[address] [facility] Not Available Not Available 05/07/2024 17:56:45 10/23/19 24 10/23/2023 CBC W Auto Diffe renti al panel - Blood erythrocyte distribution width [entitic volume] by automated count 15.1 % low: 11.5%h igh: 14.5% high RDW 15.1 (H) 11.5 - 14.5 % 10/22 4:[address] [facility] Not Available Not Available 05/07/2024 17:56:45 10/23/19 24 10/23/2023 CBC W Auto Diffe renti al panel - Blood platelets [#/volume] in blood 158 text: 130 - 400 x10'3/ uL PLT 158 130 - 400 x10'3 /uL 10/22 4:[address] [facility] Not Available Not Available 05/07/2024 17:56:45 10/23/19 24 10/23/2023 CBC W Auto Diffe renti al panel - Blood platelet mean volume [entitic volume] in blood 13 text: 9.3 - 12.2 fL high MPV 13.0 (H) 9.3 - 12.2 FL 10/22 4:[address] [facility] Not Available Not Available 05/07/2024 17:56:45 10/23/19 24 10/23/2023 CBC W Auto Diffe renti al panel - Blood differential cell count method - blood AUTOMA NORIS DIFFER ENTIAL DIFFE RENTI AL TYPE AUTOM ATED DIFFE RENTI AL 10/22 4:[address] [facility] Not Available Not Available 05/07/2024 17:56:45 10/23/19 24 10/23/2023 CBC W Auto Diffe renti al panel - Blood neutrophils/ 100 leukocytes in blood by automated count 91.4 % NEUTR OPHIL S % 91.4 % 10/22 4:[address] [facility] Not Available Not Available 05/07/2024 17:56:45 10/23/19 24 10/23/2023 CBC W Auto Diffe renti al panel - Blood lymphocytes/ 100 leukocytes in blood by automated count 6.3 % LYMPH OCYTE S % 6.3 % 10/22 4:[address] [facility] Not Available Not Available 05/07/2024 17:56:45 10/23/19 24 10/23/2023 CBC W Auto Diffe renti al panel - Blood monocytes/10 0 leukocytes in blood by automated count 1.8 % MONOC YTES % 1.8 % 10/22 4:[address] [facility] Not Available Not Available 05/07/2024 17:56:45 10/23/19 24 10/23/2023 CBC W Auto Diffe renti al panel - Blood eosinophils/ 100 leukocytes in blood by automated count 0 % EOSIN OPHIL S 0.0 % 10/22 4:[address] [facility] Not Available Not Available 05/07/2024 17:56:45 10/23/19 24 10/23/2023 CBC W Auto Diffe renti al panel - Blood basophils/10 0 leukocytes in blood by automated count 0 % BASOP HILS 0.0 % 10/22 4:[address] [facility] Not Available Not Available 05/07/2024 17:56:45 10/23/19 24 10/23/2023 CBC W Auto Diffe renti al panel - Blood immature granulocytes /100 leukocytes in blood by automated count 0.5 % IMMAT URE GRANS % 0.5 % 10/22 4:[address] [facility] Not Available Not Available 05/07/2024 17:56:45 10/23/19 24 10/23/2023 CBC W Auto Diffe renti al panel - Blood neutrophils [#/volume] in blood 11.53 text: 1.80 - 7.70 x10'3/ uL high ABS. NEUTR OPHIL S 11.53 (H) 1.80 - 7.70 x10'3 /uL 10/22 4:[address] [facility] Not Available Not Available 05/07/2024 17:56:45 10/23/19 24 10/23/2023 CBC W Auto Diffe renti al panel - Blood lymphocytes [#/volume] in blood 0.8 text: 1.00 - 4.80 x10'3/ uL low ABS. LYMPH OCYTE S 0.80 (L) 1.00 - 4.80 x10'3 /uL 10/22 4:[address] [facility] Not Available Not Available 05/07/2024 17:56:45 10/23/19 24 10/23/2023 CBC W Auto Diffe renti al panel - Blood monocytes [#/volume] in blood 0.23 text: 0.30 - 0.82 x10'3/ uL low ABS. MONOC YTES 0.23 (L) 0.30 - 0.82 x10'3 /uL 10/22 4:[address] [facility] Not Available Not Available 05/07/2024 17:56:45 10/23/19 24 10/23/2023 CBC W Auto Diffe renti al panel - Blood eosinophils [#/volume] in blood 0 text: 0.04 - 0.54 x10'3/ uL low ABS. EOSIN OPHIL S 0.00 (L) 0.04 - 0.54 x10'3 /uL 10/22 4:[address] [facility] Not Available Not Available 05/07/2024 17:56:45 10/23/19 24 10/23/2023 CBC W Auto Diffe renti al panel - Blood basophils [#/volume] in blood 0 text: 0.01 - 0.08 x10'3/ uL low ABS. BASOP HILS 0.00 (L) 0.01 - 0.08 x10'3 /uL 10/22 4:[address] [facility] Not Available Not Available 05/07/2024 17:56:45 10/23/19 24 10/23/2023 CBC W Auto Diffe renti al panel - Blood immature granulocytes [#/volume] in blood 0.06 text: 0.00 - 0.49 x10'3/ uL ABS. IMMAT URE GRANU LOCYT ES 0.06 0.00 - 0.49 x10'3 /uL 10/22 4:[address] [facility] Not Available Not Available 05/07/2024 17:56:45 10/23/19 24 10/23/2023 CBC W Auto Diffe renti al panel - Blood interpretati on and review of laboratory results Abnorm al Not Available Not Available 17:56:45 10/24/19 24 10/29/2023 Bacte vikki ident ified in Speci men by Anaer obe cultu re specimen source identified FOOT,L EFT SPEC DESCR IPTIO N FOOT, LEFT 10/23 12:[address] [facility] Not Available Not Available 05/07/2024 17:56:46 10/24/19 24 10/29/2023 Bacte vikki ident ified in Speci men by Anaer obe cultu re service comment NO SPECIA L REQUES T SPECI AL REQUE STS NO SPECI AL REQUE ST 10/23 12:[address] [facility] Not Available Not Available 05/07/2024 17:56:46 10/24/19 24 10/29/2023 Bacte vikki ident ified in Speci men by Anaer obe cultu re microscopic observation [identifier] in specimen by gram stain NO WHITE BLOOD CELLS SEEN GRAM STAIN RESUL T NO WHITE BLOOD CELLS SEEN 10/23 6:[address] [facility] Not Available Not Available 05/07/2024 17:56:46 10/24/19 24 10/29/2023 Bacte vikki ident ified in Speci men by Anaer obe cultu re microscopic observation [identifier] in specimen by gram stain MANY RED BLOOD CELLS SEEN GRAM STAIN RESUL T MANY RED BLOOD CELLS SEEN 10/23 6:[address] [facility] Not Available Not Available 05/07/2024 17:56:46 10/24/19 24 10/29/2023 Bacte vikki ident ified in Speci men by Anaer obe cultu re microscopic observation [identifier] in specimen by gram stain FEW GRAM POSITI VE COCCI GRAM STAIN RESUL T FEW GRAM POSIT EKATERINA COCCI 10/23 6:[address] [facility] Not Available Not Available 05/07/2024 17:56:46 10/24/19 24 10/29/2023 Bacte vikki ident ified in Speci men by Anaer obe cultu re bacteria identified in specimen by culture HEAVY GROWTH OF NORMAL SKIN TIFFANIE, SUSCEP TIBILI TIES NOT ROUTIN MADISON PERFOR MED. CULTU RE RESUL T HEAVY GROWT H OF MC L SKIN TIFFANIE , SUSCE PTIBI LITIE S NOT ROUTI VERA PERFO RMED. 10/28 7:[address] [facility] Not Available Not Available 05/07/2024 17:56:46 10/24/19 24 10/29/2023 Bacte vikki ident ified in Speci men by Anaer obe cultu re bacteria identified in specimen by culture NOTE: ANAERO BIC CULTUR ES ARE ROUTIN MADISON SCREEN ED FOR BOTH AEROBI C AND ANAERO BIC ORGANI SMS. CULTU RE RESUL T NOTE: ANAER OBIC CULTU RES ARE ROUTI VERA SCREE ALEC FOR BOTH AEROB IC AND ANAER OBIC ORGAN ISMS. 10/28 7:[address] [facility] Not Available Not Available 05/07/2024 17:56:46 10/24/19 24 10/24/2023 Proca lcito karissa [Mass /volu me] in Serum or Plasm a procalcitoni n [mass/volume ] in serum or plasma text: 0.00 - 0.49 NG/mL Proca lcito karissa <0.05 0.00 - 0.49 NG/ML 10/23 10:[address] [facility] Not Available Not Available 05/07/2024 17:56:46 10/24/19 24 10/24/2023 Urate [Mass /volu me] in Serum or Plasm a urate [mass/volume ] in serum or plasma 7.5 text: 3.5 - 7.2 mg/dL high URIC ACID 7.5 (H) 3.5 - 7.2 MG/DL 10/23 10:[address] [facility] Not Available Not Available 05/07/2024 17:56:46 [...] - 99 MG/DL 10/23 6:[address] [facility] Not Available Not Available 05/07/2024 17:56:46 10/24/19 24 10/24/2023 Basic metab olic 2000 panel - Serum or Plasm a urea nitrogen [mass/volume ] in serum or plasma 20 text: 7 - 18 mg/dL high BUN 20 (H) 7 - 18 MG/DL 10/23 6:[address] [facility] Not Available Not Available 05/07/2024 17:56:46 10/24/19 24 10/24/2023 Basic metab olic 2000 panel - Serum or Plasm a creatinine [mass/volume ] in serum or plasma 1.31 text: 0.7 - 1.3 mg/dL high CREAT ININE S/P/B 1.31 (H) 0.7 - 1.3 MG/DL 10/23 6:[address] [facility] Not Available Not Available 05/07/2024 17:56:46 10/24/19 24 10/24/2023 Basic metab olic 2000 panel - Serum or Plasm a sodium [moles/volum e] in serum or plasma 146 text: 136 - 145 mmol/L high SODIU M S/P/B 146 (H) 136 - 145 MMOL/ L 10/23 6:[address] [facility] Not Available Not Available 05/07/2024 17:56:46 10/24/19 24 10/24/2023 Basic metab olic 2000 panel - Serum or Plasm a potassium [moles/volum e] in serum or plasma 4.6 text: 3.5 - 5.1 mmol/L POTAS SIUM S/P/B 4.6 3.5 - 5.1 MMOL/ L 10/23 6:[address] [facility] Not Available Not Available 05/07/2024 17:56:46 10/24/19 24 10/24/2023 Basic metab olic 2000 panel - Serum or Plasm a chloride [moles/volum e] in serum or plasma 114 text: 100 - 108 mmol/L high CHLOR UMAIR S/P/B 114 (H) 100 - 108 MMOL/ L 10/23 6:[address] [facility] Not Available Not Available 05/07/2024 17:56:46 10/24/19 24 10/24/2023 Basic metab olic 1999 panel - Serum or Plasm a carbon dioxide, total [moles/volum e] in serum or plasma 31 text: 21 - 32 mmol/L CO2 31.0 21 - 32 MMOL/ L 10/23 6:[address] [facility] Not Available Not Available 05/07/2024 17:56:46 10/24/19 24 10/24/2023 Basic metab olic 2000 panel - Serum or Plasm a calcium [mass/volume ] in serum or plasma 9.2 text: 8.5 - 10.1 mg/dL CALCI UM S/P/B 9.2 8.5 - 10.1 MG/DL 10/23 6:[address] [facility] Not Available Not Available 05/07/2024 17:56:46 10/24/19 24 10/24/2023 Basic metab olic 2000 panel - Serum or Plasm a anion gap in serum or plasma 1 text: 5 - 15 mmol/L low ANION GAP 1.0 (L) 5 - 15 MMOL/ L 10/23 6:[address] [facility] Not Available Not Available 05/07/2024 17:56:46 10/24/19 24 10/24/2023 Basic metab olic 2000 panel - Serum or Plasm a urea nitrogen/cre atinine [mass ratio] in serum or plasma 15.3 low: 6high: 26 BUN CREAT ININE RATIO 15.3 6 - 26 10/23 6:[address] [facility] Not Available Not Available 05/07/2024 17:56:46 10/24/19 24 10/24/2023 Basic metab olic 2000 panel - Serum or Plasm a glomerular filtration rate/1.73 sq M.predicted [volume rate/area] in serum, plasma or blood by creatinine-b ased formula (CKD-epi 2020) 72 text: >90 mL/min /1.73 M2 low GFR ESTIM ATE 72 (L) >90 ML/NE N/1.7 3 M2 10/23 6:[address] [facility] Not Available Not Available 05/07/2024 17:56:46 [...] 11.0 x10'3 /uL 10/23 6:[address] [facility] Not Available Not Available 05/07/2024 17:56:46 10/24/19 24 10/24/2023 CBC W Auto Diffe renti al panel - Blood erythrocytes [#/volume] in blood by automated count 4.5 text: 4.70 - 6.10 x10'6/ uL low RBC 4.50 (L) 4.70 - 6.10 x10'6 /uL 10/23 6:[address] [facility] Not Available Not Available 05/07/2024 17:56:46 10/24/19 24 10/24/2023 CBC W Auto Diffe renti al panel - Blood hemoglobin [mass/volume ] in blood 13 text: 14.0 - 18.0 g/dL low HGB 13.0 (L) 14.0 - 18.0 G/DL 10/23 6:59 AM CDT [facility] Not Available Not Available 05/07/2024 17:56:46 10/24/19 24 10/24/2023 CBC W Auto Diffe renti al panel - Blood hematocrit [volume fraction] of blood 41.9 % low: 43%hig h: 54% low HCT 41.9 (L) 43.0 - 54.0 % 10/23 6:59 AM CDT [facility] Not Available Not Available 05/07/2024 17:56:46 10/24/19 24 10/24/2023 CBC W Auto Diffe renti al panel - Blood MCV [entitic volume] 93.1 text: 80.0 - 94.0 fL MCV 93.1 80.0 - 94.0 FL 10/23 6:59 AM CDT [facility] Not Available Not Available 05/07/2024 17:56:46 10/24/19 24 10/24/2023 CBC W Auto Diffe renti al panel - Blood MCH [entitic mass] 28.9 pg low: 27pghi gh: 31pg MCH 28.9 27.0 - 31.0 PG 10/23 6:59 AM CDT [facility] Not Available Not Available 05/07/2024 17:56:46 10/24/19 24 10/24/2023 CBC W Auto Diffe renti al panel - Blood MCHC [mass/volume ] 31 text: 32.0 - 36.0 g/dL low MCHC 31.0 (L) 32.0 - 36.0 G/DL 10/23 6:59 AM CDT [facility] Not Available Not Available 05/07/2024 17:56:46 10/24/19 24 10/24/2023 CBC W Auto Diffe renti al panel - Blood erythrocyte distribution width [entitic volume] by automated count 15.2 % low: 11.5%h igh: 14.5% high RDW 15.2 (H) 11.5 - 14.5 % 10/23 6:[address] [facility] Not Available Not Available 05/07/2024 17:56:46 10/24/19 24 10/24/2023 CBC W Auto Diffe renti al panel - Blood platelets [#/volume] in blood 138 text: 130 - 400 x10'3/ uL PLT 138 130 - 400 x10'3 /uL 10/23 6:[address] [facility] Not Available Not Available 05/07/2024 17:56:46 10/24/19 24 10/24/2023 CBC W Auto Diffe renti al panel - Blood platelet mean volume [entitic volume] in blood 13 text: 9.3 - 12.2 fL high MPV 13.0 (H) 9.3 - 12.2 FL 10/23 6:[address] [facility] Not Available Not Available 05/07/2024 17:56:46 10/24/19 24 10/24/2023 CBC W Auto Diffe renti al panel - Blood differential cell count method - blood AUTOMA NORIS DIFFER ENTIAL DIFFE RENTI AL TYPE AUTOM ATED DIFFE RENTI AL 10/23 6:[address] [facility] Not Available Not Available 05/07/2024 17:56:46 10/24/19 24 10/24/2023 CBC W Auto Diffe renti al panel - Blood neutrophils/ 100 leukocytes in blood by automated count 82.9 % NEUTR OPHIL S % 82.9 % 10/23 6:[address] [facility] Not Available Not Available 05/07/2024 17:56:46 10/24/19 24 10/24/2023 CBC W Auto Diffe renti al panel - Blood lymphocytes/ 100 leukocytes in blood by automated count 12.3 % LYMPH OCYTE S % 12.3 % 10/23 6:[address] [facility] Not Available Not Available 05/07/2024 17:56:46 10/24/19 24 10/24/2023 CBC W Auto Diffe renti al panel - Blood monocytes/10 0 leukocytes in blood by automated count 4 % MONOC YTES % 4.0 % 10/23 6:[address] [facility] Not Available Not Available 05/07/2024 17:56:46 10/24/19 24 10/24/2023 CBC W Auto Diffe renti al panel - Blood eosinophils/ 100 leukocytes in blood by automated count 0 % EOSIN OPHIL S 0.0 % 10/23 6:[address] [facility] Not Available Not Available 05/07/2024 17:56:46 10/24/19 24 10/24/2023 CBC W Auto Diffe renti al panel - Blood basophils/10 0 leukocytes in blood by automated count 0.1 % BASOP HILS 0.1 % 10/23 6:[address] [facility] Not Available Not Available 05/07/2024 17:56:46 10/24/19 24 10/24/2023 CBC W Auto Diffe renti al panel - Blood immature granulocytes /100 leukocytes in blood by automated count 0.7 % IMMAT URE GRANS % 0.7 % 10/23 6:[address] [facility] Not Available Not Available 05/07/2024 17:56:46 10/24/19 24 10/24/2023 CBC W Auto Diffe renti al panel - Blood neutrophils [#/volume] in blood 7.31 text: 1.80 - 7.70 x10'3/ uL ABS. NEUTR OPHIL S 7.31 1.80 - 7.70 x10'3 /uL 10/23 6:[address] [facility] Not Available Not Available 05/07/2024 17:56:46 10/24/19 24 10/24/2023 CBC W Auto Diffe renti al panel - Blood lymphocytes [#/volume] in blood 1.08 text: 1.00 - 4.80 x10'3/ uL ABS. LYMPH OCYTE S 1.08 1.00 - 4.80 x10'3 /uL 10/23 6:[address] [facility] Not Available Not Available 05/07/2024 17:56:46 10/24/19 24 10/24/2023 CBC W Auto Diffe renti al panel - Blood monocytes [#/volume] in blood 0.35 text: 0.30 - 0.82 x10'3/ uL ABS. MONOC YTES 0.35 0.30 - 0.82 x10'3 /uL 10/23 6:[address] [facility] Not Available Not Available 05/07/2024 17:56:46 10/24/19 24 10/24/2023 CBC W Auto Diffe renti al panel - Blood eosinophils [#/volume] in blood 0 text: 0.04 - 0.54 x10'3/ uL low ABS. EOSIN OPHIL S 0.00 (L) 0.04 - 0.54 x10'3 /uL 10/23 6:[address] [facility] Not Available Not Available 05/07/2024 17:56:46 10/24/19 24 10/24/2023 CBC W Auto Diffe renti al panel - Blood basophils [#/volume] in blood 0.01 text: 0.01 - 0.08 x10'3/ uL ABS. BASOP HILS 0.01 0.01 - 0.08 x10'3 /uL 10/23 6:[address] [facility] Not Available Not Available 05/07/2024 17:56:46 10/24/19 24 10/24/2023 CBC W Auto Diffe renti al panel - Blood immature granulocytes [#/volume] in blood 0.06 text: 0.00 - 0.49 x10'3/ uL ABS. IMMAT URE GRANU LOCYT ES 0.06 0.00 - 0.49 x10'3 /uL 10/23 6:[address] [facility] Not Available Not Available 05/07/2024 17:56:46 [...] - 99 mg/dL 10/23 12:[address] [facility] Not Available Not Available 05/07/2024 17:56:46 10/24/19 24 10/24/2023 Gluco se [Mass /volu me] in Blood by Autom ated test strip interpretati on and review of laboratory results Abnorm al Not Available Not Available 17:56:46 10/24/19 24 10/28/2023 Patho logy study pathology study [facility] Depart ment of [facility] [address] [place] [address] Teleph one: , extens ion [id number] Pathol ogy Report Surgic al Pathol ogy Report Name: BELEN FRANCO Gustavo Khan en #: [id number] Age: [birth year] (Age: 38) Locati on: [facility] Sex: M Proced ure Date: Hospit al #: [id number] Date Receiv ed: Date Report ed: Provid er: CHLOÉ DENNEY NOT DPM KHKEVON GÓMEZ MD Source : Skin, left great toe gouty tophi Clinic al Histor y: Left foot ulcer Gross Descri ption: Receiv ed in formal in and labele d with the patien t's labele d and left great toe gouty tophi , is a 1.1 x 0.2 x 0.2 cm portio n of white- jones soft tissue . Specim en is entire ly submit noris in casset te 1. Gross examin ation (when applic able) was perfor med at [facility], [address] [place] [address]. This case was interp reted and signed out at [facility], [address] [place], [place] [address]., [place] [address]. FINAL DIAGNO SIS: Soft tissue , left great toe, biopsy : -Consi stent with gouty tophi, see commen t Diagno sis Commen t: By polari zation are noted jonh ls consis tent with MSU, indica ting gouty tophi Elec tronic ally Signed Out KOLBY ANDRADE MD PATHO LOGY [facility]aira Depar tment of Labor atory Medic [facility]e [address] [facility] [place] [address] Telep anna: [phone], exten harini [id number] Patho logy Repor t Surgi dutch Patho logy Repor t Name: DK BELTRAN, EDGAR AM J Speci men #: [id number] Age: [birth year] (Age: 38) Locat ion: SELI S Sex: M Proce dure Date: 2023 Hospi humaira #: [id number] Date Recei franklin: 2023 Date Repor noris: 2023 Provi emanuel: BOOM LARA DPTania TELLEZ MD [facility] e: Skin, left great toe gouty tophi Clini dutch Histo ry: Left foot ulcer Gross Descr iptio n: Recei franklin in forma carlos and label ed with the patie nt's label ed and left great toe gouty tophi , is a 1.1 x 0.2 x 0.2 cm porti on of white -jones soft tissu e. Speci men is entir madison submi tted in casse tte 1. Gross exami natio n (when appli cable ) was perfo rmed at [facility], [address] [facility], [place] [address] . This case was inter prete d and cecilia d out at [facility], [address] , [place] [address] . FINAL DIAGN OSIS: Soft tissu e, left great toe, biops y: -Cons isten t with gouty tophi , see comme nt Diagn osis Comme nt: By polar izati on are noted cryst als consi stent with MSU, indic ating gouty tophi Kelli ctron icall y Cecilia d Out KOLBY ANDRADE MD [facility] Not Available Not Available 05/07/2024 17:56:46 06/05/19 25 06/05/2024 COMP. METAB OLIC PANEL (14) glucose 72 mg/dL 70-99 Not Available [facility] ([facility]) [address] [place], [address], 06/05/2024 06:19:49 06/05/19 25 06/05/2024 COMP. METAB OLIC PANEL (14) BUN 20 mg/dL 6-20 Not Available [facility] ([facility]) [address] [place], [address], 06/05/2024 06:19:49 06/05/19 25 06/05/2024 COMP. METAB OLIC PANEL (14) creatinine 1.32 mg/dL 0.76-1 .27 above high normal Not Available [facility] ([facility]) [address] [place], [address], 06/05/2024 06:19:49 06/05/19 25 06/05/2024 COMP. METAB OLIC PANEL (14) eGFR 71 mL/mi n/1.7 3 >59 Not Available [facility] ([facility]) [address] [facility], [place], [address], 06/05/2024 06:19:49 06/05/19 25 06/05/2024 COMP. METAB OLIC PANEL (14) BUN/creatini ne ratio 15 9-20 Not Available [facility] ([facility]) [address] [facility], [place], [address], 06/05/2024 06:19:49 06/05/19 25 06/05/2024 COMP. METAB OLIC PANEL (14) sodium 144 mmol/ L 134-14 4 Not Available [facility] ([facility]) [address] [facility], [place], [address], 06/05/2024 06:19:49 06/05/19 25 06/05/2024 COMP. METAB OLIC PANEL (14) potassium 4.5 mmol/ L 3.5-5. 2 Not Available [facility] ([facility]) [address] [facility], [place], [address], 06/05/2024 06:19:49 06/05/19 25 06/05/2024 COMP. METAB OLIC PANEL (14) chloride 105 mmol/ L 96-106 Not Available [facility] ([facility]) [address] [place], [address], 06/05/2024 06:19:49 06/05/19 25 06/05/2024 COMP. METAB OLIC PANEL (14) carbon dioxide, total 23 mmol/ L - Not Available [facility] ([facility]) [address] [facility], [place], [address], 06/05/2024 06:19:49 06/05/19 25 06/05/2024 COMP. METAB OLIC PANEL (14) calcium 9.3 mg/dL 8.7-10 .2 Not Available [facility] ([facility]) [address] [place], [address], 06/05/2024 06:19:49 06/05/19 25 06/05/2024 COMP. METAB OLIC PANEL (14) protein, total 6.4 g/dL 6.0-8. 5 Not Available [facility] ([facility]) [address] [place], [address], 06/05/2024 06:19:49 06/05/19 25 06/05/2024 COMP. METAB OLIC PANEL (14) albumin 4.3 g/dL 4.1-5. 1 Not Available [facility] ([facility]) [address] [place], [address], 06/05/2024 06:19:49 06/05/19 25 06/05/2024 COMP. METAB OLIC PANEL (14) globulin, total 2.1 g/dL 1.5-4. 5 Not Available [facility] ([facility]) [address] [place], [address], 06/05/2024 06:19:49 06/05/19 25 06/05/2024 COMP. METAB OLIC PANEL (14) bilirubin, total 0.7 mg/dL 0.0-1. 2 Not Available [facility] ([facility]) [address] [place], [address], 06/05/2024 06:19:49 06/05/1906/05/2024 COMP. METAB OLIC PANEL (14) alkaline phosphatase 160 IU/L 44-121 above high normal Not Available [facility] ([facility]) [address] [place], [address], 06/05/2024 06:19:49 06/05/19 25 06/05/2024 COMP. METAB OLIC PANEL (14) AST (SGOT) 35 IU/L 0-40 Not Available [facility] ([facility]) [address] [facility], [place], [address], 06/05/2024 06:19:49 06/05/19 25 06/05/2024 COMP. METAB OLIC PANEL (14) ALT (SGPT) 67 IU/L 0-44 above high normal Not Available [facility] ([facility]) [address] [facility], [place], [address], 06/05/2024 06:19:49 08/18/19 24 08/18/2023 US, gallb ladde r No observ ation record ed. [address] [place], [address], 09/05/2023 12:49:13 08/18/19 24 08/18/2023 CT, abdom en + pelvi s, w/ contr ast No observ ation record ed. [address] [place], [address], 08/26/2023 15:14:06 10/22/19 24 10/22/2023 XR, toe(s ), 2 or more view No observ ation record ed. [facility] [address] [place], [address], 10/22/2023 16:13:14 10/22/19 24 10/22/2023 XR, wrist , 3 or more view No observ ation record ed. [facility] [address] [place], [address], 12/26/2023 15:44:18 10/22/19 24 10/22/2023 XR, shoul emanuel, 2 or more view No observ ation record ed. [facility] [address] [place], [address], 12/26/2023 15:44:19 10/22/19 24 10/22/2023 XR, chest , 1 view No observ ation record ed. [address] [place], [address], 12/26/2023 15:44:19 06/27/19 25 06/26/2024 XR, chest , 2 view No observ ation record ed. [facility] [address] [facility] [place], [address], 08/27/2024 13:41:46 06/27/19 25 06/26/2024 CT, angio gram, chest + abdom en + pelvi s, w/ contr ast No observ ation record ed. [facility] [address] [facility] [place], [address], 08/27/2024 13:43:12 06/28/19 25 06/27/2024 XR, abdom en No observ ation record ed. [address] [place], [address], 08/27/2024 13:43:32 06/29/19 25 06/28/2024 US, abdom en No observ ation record ed. [facility] [address] [facility] [place], [address], 08/27/2024 13:44:07 Result Notes None recorded. Problems Name Problem SNOMED Code Status Onset Date Resolution Date Notes Provider Name and Address Organization Details Recorded Time Psoriatic arthritis 252501335 Active 2021 Dane Steinberg MD Attn: Accounting ,[address] [place], [address] , [place] [facility] 3 11:02:39 Smoker 54991725 Active 2021 Dane Steinberg MD Attn: Accounting ,[address] [place], [address] , [place] [facility] 3 11:04:20 Physical deconditio cyndi 3259882628565 2 Active 2022 Dane Steinberg MD Attn: Accounting ,[address] [facility], [place], [address] , [place] [facility] 3 11:27:28 Low back pain 468829862 Active 2023 JOSE SHANE MD Attn: Accounting ,[address] [facility], [place], [address] , [facility] 21:30:08 Chronic tophaceous gout 78064717 Active 2023 JOSE SHANE MD Attn: Accounting ,[address] [facility], [place], [address] , [facility] 21:30:10 Under care of rheumatolo gist 667434358 Active 2023 JOSE SHANE MD Attn: Accounting ,[address] [facility], [place], [address] , [facility] 21:32:37 Problem Notes None recorded. Procedures Surgical History Date Name Laterality Status Provider Name and Address Organization Details Recorded Time debridement of foot ulcer completed Radha Auguste MA [facility] 11/03/2023 17:35:37 procedure on fingernail completed Margarita Perkins MA [facility] 04/26/2021 14:08:58 examination of toe completed Margarita Perkins MA [facility] 04/26/2021 14:09:10 procedure on gallbladder completed Naz Bettencourt MA [place] [facility] 02/13/2024 17:02:58 examination of toe completed Naz Bettencourt MA [facility] 06/04/2024 12:00:01 Imaging Results None recorded. Procedure Notes None recorded. Medical Equipment None Reported. Allergies No known drug allergies Medications Name Sig Start Date Stop Date Status Note LastModified by Organization Details LastModified Time cyclobenz aprine 10 mg tablet TAKE 1 TABLET BY MOUTH THREE TIMES DAILY NEEDED FOR LOWER BACK PAIN 2024 active Not Available Not Available Not Avai lable atorvasta tin 80 mg tablet 12/24 completed [...] mg-acetam inophen 325 mg tablet TAKE 1 TABLET BY MOUTH DAILY NEEDED FOR SEVERE PAIN active Not Available Not Available No t Available prednison e 20 mg tablet TAKE [...] Not Available allopurin ol 100 mg tablet Take 2 tablets every day by oral route. active Rheumato logy managing . 500mg daily total Not Available Not Available Not Available sulfameth [...] mg capsule TAKE 1 CAPSULE BY MOUTH DAILY WITH FOOD 07/27 completed Not Available Not Available Not Available docusate sodium 100 mg capsule TAKE ONE CAPSULE BY MOUTH TWICE DAILY 02/12 completed Patient not taking. Not Available Not Available Not Available Trexall 7.5 mg tablet TAKE 1 TABLET BY MOUTH EVERY WEEK 07/27 completed Not Available Not Available Not Available folic acid 1 mg tablet TAKE 1 TABLET BY MOUTH EVERY DAY WITH MEALS active Not Available Not Available No t Available allopurin ol 300 mg tablet TAKE 1 TABLET BY MOUTH EVERY DAY active Rheumato logy managing . 500mg daily total Not Available Not Available Not Available acetamino [...] a dose pack FOLLOW PACKAGE DIRECTIO NS 07/27 completed Last pill 06/04/24 Not Available Not Available Not Available morphine [...] taking. Not Available Not Available Not Available probeneci d 500 mg tablet TAKE 1 TABLET BY MOUTH DAILY active Not Available Not Available No t Available oxycodone 5 mg tablet 10/03 completed [...] Pen 40 mg/0.4 mL subcutane ous kit 07/27 completed . Not Available Not Available Not Available Voltaren Arthritis Pain 1 % topical gel APPLY 2 GRAMS TO THE AFFECTED AREA(S) BY TOPICAL ROUTE 4 TIMES PER DAY 2023 active Not Available Not Available Not Avai lable allopurin ol 200 mg tablet TAKE 2 TABLETS BY MOUTH TWICE DAILY 07/27 completed Not Available Not Available Not Available Simlandi( CF) 40 mg/0.4 mL subcutane ous syringe kit Inject 0.4 mL every 2 weeks by subcutan eous route. active Prescrib ed by rheumato logy Not Available Not Available Not Available Vitals Date Recorded Body height Body mass index (BMI) Body weight Body temperature Heart rate Respiratory rate Oxygen saturation Oxygen saturation in Arterial blood by Pulse oximetry Systolic And Diastolic Provider Name and Address Organization Details Last Updated DateTime 5 180.34 cm 33.4 kg/m2 557412. 68 g 99 [degF] 80 /min 18 /min 98 % 98 % 115/80 mm[Hg] Naz Bettencourt [place] - [facility] 5 12:02:44 Date Recorded Body height Body mass index (BMI) Body weight Heart rate Oxygen saturation Oxygen saturation in Arterial blood by Pulse oximetry Respiratory rate Systolic And Diastolic Provider Name and Address Organization Details Last Updated DateTime 5 180.34 cm 33.5 kg/m2 624792. 17 g 89 /min 98 % 98 % 20 /min 110/75 mm[Hg] Yenny Girard [facility] 5 17:11:08 Date Recorded Body height Body mass index (BMI) Body weight Body temperature Heart rate Respiratory rate Oxygen saturation Oxygen saturation in Arterial blood by Pulse oximetry Systolic And Diastolic Provider Name and Address Organization Details Last Updated DateTime 4 180.34 cm 33.5 kg/m2 128878. 92 g 97.1 [degF] 80 /min 18 /min 96 % 96 % 119/83 mm[Hg] Naz Bettencourt MA [facility] 4 15:10:12 Date Recorded Body height Body mass index (BMI) Body weight Respiratory rate Body temperature Heart rate Oxygen saturation Oxygen saturation in Arterial blood by Pulse oximetry Systolic And Diastolic Provider Name and Address Organization Details Last Updated DateTime 4 180.34 cm 33.8 kg/m2 190835. 35 g 16 /min 98.2 [degF] 87 /min 97 % 97 % 106/73 mm[Hg] Leyda Bean [facility] 4 11:46:12 Date Recorded Body height Body mass index (BMI) Body weight Heart rate Body temperature Respiratory rate Oxygen saturation Oxygen saturation in Arterial blood by Pulse oximetry Systolic And Diastolic Provider Name and Address Organization Details Last Updated DateTime 4 180.34 cm 32.9 kg/m2 318238. 5 g 111 /min 97.8 [degF] 18 /min 96 % 96 % 131/87 mm[Hg] Naz Bettencourt MA [facility] 4 17:05:55 Social History Question Answer Notes LastModified by Organizat ion Details LastModified Time Tobacco Smoking Status Current Every Day Smoker Margarita Perkins MA null, [facility] 04/26/2021 14:08:18 Do You Have An Advance Directive? No Information n ot available 04/26/2021 In [...] For COVID-19? No Information not available 04/26/2021 What Was The Date Of Your Most Recent Tobacco Screening? 06/14/2024 Information not available 06/14/2024 What Is Your Relationship Status? Single Information not available 04/26/2021 Do You Have Smoke And Carbon Monoxide Detectors In Your Home? Yes Information not available 04/26/2021 Are You Passively Exposed To Smoke? No Information no t available 04/26/2021 How Much Tobacco Do You Smoke? 0.25 PPD Or Less [email or web address] Information not available 05/13/2023 Has Tobacco Cessation Counseling Been Provided? Yes Information not available 04/26/2021 On What Date Was Tobacco Cessation Counseling Provided? 06/14/2024 Information not available 06/14/2024 How Many Years Have You Smoked Tobacco? 20 Information not available 04/26/2021 Sex: Male Functional Status Question Answer Note LastModified by Organizat ion Details LastModified Time Do you use any illicit or recreational drugs? No Information not available 04/26/2021 Do you or have you ever used any other forms of tobacco or nicotine? No [email or web address] Information not available 10/03/2022 What is your level of alcohol consumption? None Information not available 04/26/2021 Are you currently employed? No Information not available 04/26/2021 Mental Status None recorded. Family History Relationship Description Onset Age of this Age Resolved Age Notes LastModified by Organization Details LastModified Time Father Hypertensive disorder [email or web address] Not available 04/26 14:07:41 Notes:08/05/23, 09/09/23, 02/12, 06/14/24 Medical History Condition Response Skin Problems Y Muscle, Joint, or Bone Problems Y Immunizations Vaccine Type Date Status Note Provider Nam e and Address Organization Details Recorded Time Influenza, split virus, quadrivalent, PF 12/11/2013 completed BHARAT LEO MD Attn: Accounting,[address] [facility], [place], [address], [place] - [facility] 08/05/2023 12:09:15 Past Encounters Encounter ID Performer Location Encounter Start Date Encounter Closed Date Diagnosis/Indication Diagnosis SNOMED-CT Code Diagnosis ICD10 Code Diagnosis Note [id number] MD Miranda Teresa 14 IM [address] [facility] [place] [address] 04/26/2021 13:48:48 04/27/2021 12:02:20 Psoriatic arthritis 143928568 L40.50 Was dx in the past w/ [...] management f/u in 4wks https://pu bmed.ncbi. nlm.nih.go v/59006218 /https://e medicine.m Nanalysis.co m/article/ 5212711-bl rkup#c6htt ps://www.c ochrane.or g/LM441696 /MUSKEL_oh thotrexate -psoriatic -arthritis Adult heal examination 067686076 Z00.00 Establishm ent of care Smoker 44311789 F17.200 Pt smokes 1/4 of a pack cigs daily, used to smoke newports but now smokes a cheaper brandDiscu ssed the benefits of quitting such as improvemen t of his arthritis [id number] MD Miranda Colon 14 IM [address] [facility] [place] [address] 05/24/2021 14:54:22 05/25/2021 09:44:34 Psoriatic arthritis 360840311 L40.50 Pt has a h/o of psoriasis [...] management f/u in 4wks https://pu bmed.ncbi. nlm.nih.go v/48859847 /https://e medicine. Nanalysis.co /article/ 3269506-gc rkup#c6htt ps://www.c Zank.or g/FX957518 /MUSKEL_oh thotrexate -psoriatic -arthritis Smoker 61149119 F17.200 Pt smokes 1/4 of a pack cigs daily, used to smokes trip.me but now smokes a cheaper brandDiscu ssed the benefits of quitting such as improvemen t of his arthritis [id number] MD Miranda Teresa 14 IM [address] [facility] [address] [place] [address] 02/18/2022 15:41:38 02/25/2022 10:39:01 Psoriatic arthritis 351100071 L40.50 Pt has a h/o of psoriasis [...] for further management f/u in 4wks https://pu HealthyOuted.Nepris. nlm.nih.go v/34346057 /https://e medicine. Nanalysis.Solar Titan /article/ 2366273-bs rkup#c6htt ps://www.c Zank.or g/FO328725 /BoostUp_IncellDx thotrexate -psoriatic -arthritis [id number] MD Miranda SUE 14 IM [address] [facility] [address] [place] [address] 10/03/2022 10:12:59 10/10/2022 10:59:13 Obesity 536531215 E66.9 Psoriatic arthritis 1563 70686 L40.50 Pt has a h/o of psoriasis [...] logy on boardf/u in 3 mo https://pu HealthyOuted.Nepris. nlm.nih.go v/25502060 /https://e medicine. Nanalysis.Solar Titan /article/ 2642819-bu rkup#c6htt ps://www.c Zank.or g/DL320059 /BoostUp_oh thotrexate -psoriatic -arthritis Smoker 47480686 F17.200 Pt smokes 1/4 of a pack cigs daily, used to smokes newports but now smokes a cheaper brandDiscu ssed the benefits of quitting such as improvemen t of his arthritis Physical deconditioning 2821395945 9102 R68.89 pt has significan t deconditio cyndi from psoriatic arthritis affecting his feet and knees. Was discharged from SNF but needs continuati on of his PT/OT. Has difficulty walking from wheelchair to door. 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 [id number] MD Miranda Colon 14 4 [facility] [address] [place] [address] 12/24/2022 10:57:10 12/30/2022 16:19:25 Obesity 391726306 E66.9 BMI: 32- Discussed lifestyle modificati ons [...] HLD, and cancer risk Psoriatic arthritis 1563 35949 L40.50 Pt has a h/o of psoriasis [...] boardf/u in 3 mo https://pu bmed.ncbi. nlm.nih.go v/30072137 /https://e medicine. Nanalysis.co m/article/ 8684702-tr rkup#c6htt ps://www.c [facility].or kyra/GM147724 /JANNY_oh thotrexate -psoriatic -arthritis Smoker 60297884 F17.200 PPD: 12; for 18 yrs.- Discussed cessation techniques such as cutting back on 2 cigarettes per day for a few wks then continuing this until he reaches zero. Offered rx medication s such as a nicotine patch and chantix.- Discussed adverse health effects such as cardiovasc ular disease, stroke, and cancer risk. [id number] MD Miranda Franklin 14 IM [address] [facility] [address] [place] [address] 05/13/2023 15:03:34 05/26/2023 11:42:57 Physical deconditioning 1881846558 9102 R68.89 pt has significan t deconditio cyndi from psoriatic arthritis affecting his feet and knees. able to walk about 75ft before he has to rest. Psoriatic arthritis 1563 41534 L40.50 Pt has a h/o of psoriasis [...] rheumatolo gy- f/u in 3 mo Smoker 93023379 F17.200 PPD: 12 -> 03/13 now; for 18 yrs.- Discussed cessation techniques such as cutting back on 2 cigarettes per day for a few wks then continuing this until he reaches zero. Offered rx medication s such as a nicotine patch and chantix.- Discussed adverse health effects such as cardiovasc ular disease, stroke, and cancer risk. Gouty arth ritis of left knee [id number] 80294 M10.062 Recent MRI of the L knee showed tophi and narrowing of the joint space along w/ tendinopat hy.- will send for orthopedic f/u for megan dysonvalente [id number] BHARAT LEO MD Miranda 14 IM [address] [facility] [address] [place] [address] 08/05/2023 11:12:46 08/20/2023 10:52:28 Psoriatic arthritis 495525049 L40.50 Pt has a h/o of psoriasis [...] rheumatolo gy- f/u in 3 mo Adult [facility] th examination 121463100 Z00.00 Patient presents for follow-up care- discussed exercising 3hrs a wk minimum and to add in about 15min of resistance training 2x/wk.- discussed diet; portions no larger than the palm of their hand, eliminatin g/limiting sugars from diet, watching out for high glycemic foods, eating baked proteins, adding lentils/be ans to diet, and to eat whole grain breads.- pts spiritual/ church/ mindfullne ss addressed- medication s reviewed w/ pt- additional concerns addressed Obesity 776653210 E66.9 BMI: 34- Discussed lifestyle modificati ons [...] such as DM, HLD, and cancer risk [id number] MD Miranda SUE 14 [address] [facility] [address] [place], [place] [address] [address] 09/09/2023 14:59:25 09/26/2023 11:55:37 Obesity 412499236 E66.8 Healthy lifestyle encouraged including regular exercise of at least 150min per week, diet rich in plant based foods and low in added sugars, processed carbohydra dee, and high salt foods. Encouraged protein intake mostly with chicken and white fish and limited red meat. Paronychia of toe of left foot [id number] 4898633 L03.032 Vitals stable and he remains afebrile.P [...] Podiatry in the past. Will give referral [id number] MD Miranda Franklin 14 [address] [facility] [address] [place], [place] [address] [address] 09/16/2023 11:34:13 09/19/2023 10:21:33 Paronychia of toe of left foot [id number] 4909667 L03.032 patient has intermitte ntly taken the clindamyci n but it appears to no longer be actively infected, can stop tomorrow. Has not heard from podiatry yet. Will check on referral status. phone number given to make appointmen t.Keep clean and with petroleum jelly until no longer open then can leave open Obesity 785989495 E66.8 Healthy lifestyle encouraged including regular exercise of at least 150min per week, diet rich in plant based foods and low in added sugars, processed carbohydra dee, and high salt foods. Encouraged protein intake mostly with chicken and white fish and limited red meat. Psoriatic arthritis 1563 51058 L40.50 see above Gout 93414558 M10.9 patient on allopurino l. Needs a visit dedicated to the status of all of his medical problems. Will get establishe d with his new PCP terri. Previously /currently seeing rheumatolo mai but last visit was 03/2023 [id number] MD Miranda Teresa 14 IM [address] [facility] [place] [address] 02/13/2024 16:46:50 02/17/2024 09:20:12 Low back pain 336974160 M54.50 Patient reports dealing with low back [...] pain, especially at night. Psoriatic arthritis 1563 44276 L40.50 Chronic psoriatic arthritis. Patient does see rheumatolo gy and is currently on Humira and Trexal with some relief. 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 Patient is currently on Humira, Trexal and Allopurino l. Denies any significan t worsening of symptoms today. States that his fingers actually do not hurt. Under care of porter baggage 850236252 Z76.89 Patient sees rheumatolo gy for chronic psoriatic arthritis, strongly encouraged to continue these follow-up appointmen ts. [id number] MD Miranda Crump 14 IM [address] [facility] [place] [address] 06/04/2024 11:48:46 06/30/2024 13:05:34 Obesity 066338897 E66.9 BMI 33.4 Chronic to phaceous gout 40555847 M1A.9XX1 ChronicUnc lear why insurance stated wont cover allopurino l as it appears covered when attempting to go through [facility]. Patient states that he has a scheduled rheumatolo gy appointmen t next week on 06/09. Patient states that is pain is okay today and that he had some of the pain medication left over from the urgent care visit. Will defer to rheumatolo gy with the upcoming appointmen t, possibly allopurino l will be cover if rheumatolo gy prescribes (?). Patient does have a hx of mild CKD, might need to renal dose adjust. Discussed with patient to schedule a close follow-up visit. Plan- Check CMP today- 1 week follow-up visit [id number] MD Miranda Teresa 14 IM [address] [facility] [address] [place] [address] 06/14/2024 16:54:57 06/17/2024 14:53:08 Chronic tophaceous gout [id number] M1A.9XX1 Counselled on continued follow up with rheumatolo gy and if needs additional medication to check in with rheumatolo gy. Sees rheumatolo gist in [facility] but would like one closer to home. Will refer to rheumatolo gist in [place] and patient agreeable. Obesity 582624136 E66.9 Smoker 83125723 F17.200 Health Concerns Section Related Observation LastModified by Organization Detai ls LastModified Time None Recorded Concern Status LastModified by Organization Details LastModified Time None Recorded Advance Directives Directive N: Payers Insurance Date Sequence Insurance Name Policy Number Policy Yoon Covered Member ID Yoon Member ID Guarantor Name 07/09/2024 1 [facility] - DOS ON OR AFTER 20 (MEDICAID REPLACEMENT - HMO) William Vail [id number] William Vail
--- OUTSIDE RECORDS SUMMARY | 2024-10-04 15:03 | XMS_ITS | Encounter Summary ---
Author Organization [facility] Facility Care Team Providers Care Tax Form Preparer Name Role Phone Sagar Yoo MD Primary Care Provider [phone] No, Physician Primary Care Provider [phone] Miscellaneous, Not In File Primary Care Provider Unavailable Dane Steinberg MD Primary Care Provider [phone] Jony Stoll MD Unavailable [phone] Haydee Singh MD Unavailable Kamar Chirinos MD Primary Care Provider + Miscellaneous, Not In File Primary Care Provider Unavailable Encounter Details Date Type Department Care Team (Latest Contact Info) Description 10/30/2017 Orders Only [facility] CLINCONV ProviderRyan MD [address] [place] [address] Social History Tobacco Use Types Packs/Day Years Used Date Smoking Tobacco: Every Day Cigarettes Smokeless Tobacco: Never Sex and Gender Information Value Date Recorded Sex Assigned at Not on file 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 Historical Provider Final Res ult documented in this encounter Visit Diagnoses Not on filedocumented in this encounter Additional Health Concerns Infection Onset Date Last Indicated Resolved Time MRSA 02/15/2022 02/15/2022 08/12/2022 8:14 AM CDT documented as of this encounter Care Teams Tax Form Preparer Relationship Specialty Start Date End Date Sagar Yoo MD [address] [facility] [address] [place] [address] PCP - General 05/24/17 04/09/21 No, Physician PCP - General 04/10/21 02/14/22 Miscellaneous, Not In File PCP - General 02/15/22 07/25/22 Dane Steinberg MD PCP - General Family Medicine 07/26/22 10/02/23 Kamar Chirinos MD [address] [facility] [place] [address] PCP - General Internal Medicine 10/03/23 06/25/24 Miscellaneous, Not In File PCP - General 06/26/24 Jony Stoll MD [address] [place] [address] [address] [facility] [address] [place] [address] Surgeon Orthopedic Surgery 08/15/22 Haydee Singh MD [address] [place] [address] [address] [place] [address] Consulting Physician Family Medicine 10/15/22 documented as of this encounter
--- OUTSIDE RECORDS SUMMARY | 2024-10-04 15:03 | XMS_ITS | Clinical Summary ---
Author Organization [facility] Address [address] [place] [address] Phone Care Team Providers Care Library Services Coordinator Name Role Phone Dane Steinberg MD Primary Care Provider [phone] Allergies No known active allergies Medications allopurinol [...] naloxone HCl (Narcan) 4 MG/0.1ML Liquid 1 Maddock by Nasal route as needed (opioid overdose). 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 Gender Identity Not on file Sexual Orientation [...] 12:55 PM CDT Height 180.3 cm (5' 11) 09/07/2023 12:55 PM CDT Body Mass Index 33.47 09/07/2023 12:55 PM CDT Plan of Treatment Health Maintenance Due Date Last Done Comments TdaP Immunization 1986 Human Papillomavirus (HPV) Immunization (1 - Male 3-dose series) 2001 Hepatitis B Immunization (1 of 3 - 19+ 3-dose series) 2005 Pneumococcal Immunization Combined (1 of 2 - PCV) 2005 SARS-COV-2 Immunization ( - season) 2023 Influenza Immunization (#1) 2024 12/11/2013 Respiratory Syncytial Virus (RSV) Immunization (Adult) (1 [...] CDT) hepatitis C antibody 0.14 <1 S/[facility] ARCH [id number] 06/21/2022 10:03 PM CDT [facility] Comment: Signal/Cutoff ratio < 0.79 is Nondetected Signal/Cutoff ratio 0.80-0.99 is Grayzone Signal/Cutoff ratio > 0.99 is Detected Supplemental assays are recommended if signal/cutoff ratio is >/=1.00. Signal/cutoff ratio result >/= 5.00 is 97% predictive of positivity for recombinant immunoblot assay (RIBA) and will be reported to the [place] Department of Public [facility] as required. Blood Venipuncture / Unknown 06/21/2022 11:33 AM CDT 06/21/2022 12:30 PM CDT us Jackie Hale APRN, CNP CHEMISTRY ORDERABLES Final Result [facility] [address] [facility] [place] [address], from Last 3 Months or Most Recently Relevant to Health Maintenance Insurance MEDICAID [facility] PLAN Advance Directives * No CPR-Full Treatment [...] measures to stabilize the patient. Care Teams Library Services Coordinator Relationship Specialty Start Date End Date Dane Steinberg MD [address] [place] [address] [address] [place] [address] PCP - General Family Medicine 08/08/22
--- OUTSIDE RECORDS SUMMARY | 2024-10-04 15:03 | XMS_ITS | Referral Summary ---
Author Organization [facility] Address [address] [place] [address] Care Team Providers Care Property Underwriter Name Role Phone Jony Stoll MD Unavailable [phone] Haydee Singh MD Unavailable Miscellaneous, Not In File Primary Care Provider Unavailable Allergies No known active allergies Medications folic acid (FOLVITE) 1 mg tabletIndicatio ns:Folate Deficiency Take 1 tablet (1 mg total) by mouth daily 30 tablet 3 Active Humira,CF, Pen 40 mg/0.4 mL pen injector kit Inject 0.4 mL (40 mg total) under the skin every 14 (fourteen) days Next shot due Friday 06/30 4 Active clobetasoL-emol lient (TEMOVATE E) 0.05 % creamIndication s:psoriasis Apply 1 Application topically 2 (two) times a day Active TrexalL 7.5 mg tablet Take 1 tablet (7.5 mg total) by mouth once a week Mondays 4 Active cyclobenzaprine (FLEXERIL) 10 mg tablet Take 1 tablet (10 mg total) by mouth 3 (three) times a day as needed for muscle spasms 3 5 Active HYDROcodone-layton taminophen (NORCO) 5-325 mg per tablet Take 1 tablet by mouth every 4 (four) hours as needed for pain 0 5 Active Active Problems Problem Noted Date Diagnosed Date SBO (small bowel obstruction) 06/26/2024 Cholecystitis 10/03/2023 Gallbladder colic 08/18/2023 Chest pain, [...] Q4H PRN. Psoriatic arthritis of multiple joints Suicidal ideation 08/11/2022 Assessment & Plan (08/11/2022 [...] materials from doctor or pharmacy Never 11/28/2022 [facility] Utilities Answer Date Recorded In the past 12 months has e Apsalar, gas, oil, or water [employer] threatened to shut off services in your home? No 06/28/2024 Social Connection and Isolat ion Panel [NHANES] Answer Date Recorded In a typical week, how many times do you talk on the phone with family, friends, or neighbors? More than three times a week 06/28/2024 How often do you get togethe r with friends or relatives? More than three times a week 06/28/2024 How often do you attend chur ch or pentecostalism services? Never 06/28/2024 Do you belong to any clubs o r organizations such as yazdanism groups, unions, fraternal or athletic groups, or school groups? No 06/28/2024 How often do you attend meet ings of the clubs or organizations you belong to? Never 06/28/2024 Are you , , di vorced, , never , or living with a partner? Never 06/28/2024 AUDIT-C Answer Date Recorded Frequency of Alcohol [...] care, and heating? Not hard at all 06/28/2024 Hunger Vital Sign Answer Date Recorded Within the past 12 months, y ou worried that your food would run out before you got the money to buy more. Never true 06/29/19 25 Within the past 12 months, t he food you bought just didn't last and you didn't have money to get more. Never true 06/28/2024 PRAPARE - Transportation Answer Date Re corded In the past 12 months, has l ack of transportation kept you from medical appointments or from getting medications? No 06/09 In the past 12 months, has l ack of transportation kept you from meetings, work, or from getting things needed for daily living? No 06/28/2024 Housing Stability Vital Sign Answer Leander e [...] place to sleep or slept in a retirement (including now)? No 09/05/2022 Housing Stability Vital Sign Answer Leander e Recorded In the last 12 months, was t here a time when you were not able to pay the mortgage or rent on time? No 06/28/2024 In the past 12 months, how m any times have you moved where you were living? 0 06/28/2024 At any time in the past 12 m [facility], were you homeless or living in a retirement (including now)? No 06/28/2024 Personal Safety Answer Date Recorded Have you ever been in or are you currently in a harmful physical or emotional relationship or is someone making you feel afraid or unsafe? Denies 06/26/2024 Education Answer Date Recorded What is the highest level of school you have completed or the highest degree you have received? 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 Gender Identity Not on file Sexual Orientation Not on file Last Filed Vital Signs Vital Sign Reading Time Taken Comments Blood Pressure 129/80 06/29/2024 7:39 AM CDT Pulse 106 06/29/2024 7:39 AM CDT Temperature 36.6 C (97.9 F) 06/29/2024 7:41 AM CDT Respiratory Rate 18 06/28/2024 11:0 0 PM CDT Oxygen Saturation 93% 06/29/2024 7:39 AM CDT Inhaled Oxygen Concentration - - Weight 109.5 kg (241 lb 6.5 oz) 06/27/2024 2:13 AM CDT Height 180.3 cm (5' 11) 06/27/2024 1:25 AM CDT Body Mass Index 33.67 06/27/2024 1:25 AM CDT Plan of Treatment Not on file Procedures Procedure Name Priority Date/Time Associated Diagnosis Comments HEPATITIS PANEL, ACUTE Routine 06/27/2024 7:11 AM CDT from Last 3 Months or Most Recently Relevant to Health Maintenance Results * Hepatitis panel, acute Blood (06/27/2024 7:11 AM CDT) Hep A IgM Nonreactive Nonreactive Comment: Interpretive Data: If Hep A IgM Ab is reported as Equivocal, a new sample should be drawn in two weeks for testing. Current interpretive data was last revised on 19. Testing performed by: [facility], [address] [place] [address]., [id number] Hep B core IgM Nonreactive Nonreactive C CHANG [facility] ([place]) Comment: Interpretive Data If HepB Core IgM Ab is reported as Equivocal, a new sample should be drawn in two weeks for testing. Current interpretive data was last revised on 19. Testing performed by: [facility], [address] [place] [address]., [address] Hep C Ab Nonreactive Nonreactive [facility] ([place]) Comment: Interpretive Data Nonreactive: Antibodies to HCV not detected. Does NOT exclude the possibility of recent exposure to HCV. Equivocal: Equivocal for HCV antibodies. Supplemental molecular testing will be automatically performed to determine infection status in accordance with current CDC screening recommendations. Reactive: Positive for HCV antibodies. This may represent current or past HCV infection. Supplemental molecular testing will be automatically performed to determine current infection status in accordance with current CDC screening recommendations. Interpretive data was last revised on 2019. Testing performed by: [facility], [address] [place] [address]., [address] HepBsAg Nonreactive Nonreactive [facility]NA [facility] ([place]) Comment:Testing performed by : [facility], [address] [place] [address], [place]., [address] Blood 06/27/2024 7:11 AM CDT 06/27/2024 1:38 PM CDT Opal Tadeo MD LAB MICROBIOLOGY - GENE RAL ORDERABLES Final Result [facility] ([place]) [address] [facility] Department [place] [address] from Last 3 Months or Most Recently Relevant to Health Maintenance Insurance Advance Directives For more information, please contact: [phone] * Full Code (Latest Code Status on File) Date Activated Date Inactivated Comments 06/27/2024 2:13 AM 06/29/2024 4:08 PM * Full Code Date Activated Date Inactivated Comments 10/03/2023 3:44 [...] non-invasive ventilationNo cardioversionNo internal / external pacemaker Care Teams Property Underwriter Relationship Specialty Start Date End Date Miscellaneous, Not In File PCP - General 06/26/24 Jony Stoll MD [address] [place] [address] [address] [facility] [address] [place] [address] Surgeon Orthopedic Surgery 08/15/22 Haydee Singh MD [address] [place] [address] [address] [place] [address] Consulting Physician Family Medicine 10/15/22
--- OUTSIDE RECORDS SUMMARY | 2024-10-04 15:03 | XMS_ITS | Data Portability ---
Author Organization [employer], Main Office Address [address] [place] [address] Assessment Encounter Date Assessment Date Assessment LastModified by Organization Details LastModified Time 06/13/2022 06/13/2022 This note is dictated and transcribed by [employer]. Bull Gang Supervisor variances may occur. Despite proofreading, typographical errors [...] more view [facility] [address] [address] Patien t Name: BELEN FRANCO Access ion #: [id number] Sex: M : 1984 3 Locati [...] destru ction, most Page 1 of 2 [facility] Patien t Name: BELEN FRANCO Access ion #: [id number] Sex: M : 1984 3 Exam [...] 3:05 PM (CT) Page 2 of [id number] [facility] (Imaging) [address] [place], [address], 05/08/2022 16:44:44 Result Notes Documentation Provider Name and Address Organization Details Recorded Time Xr, Foot, 3 Or More View : [facility] [address] [place] [address] Patient Name: WILLIAM VAIL Sex: M : 1985 Location: [facility] Attending Physician: NEHAL LOPEZ Ordering Physician: NEHAL LOPEZ Exam Date: 04/24/2022 12:57 PM Exam Name: XR FOOT BILAT 3V Admitting Diagnosis(es): RADIOLOGY REPORT - FINAL EXAM: XR FOOT BILAT 3V HISTORY: PAIN 37-year-old male with chronic bilateral foot pain and lumps, currently being treated for gout. COMPARISON: None available. TECHNIQUE: Three views of the bilateral feet were performed. FINDINGS: See below. IMPRESSION: Expansile lytic lesions throughout the bilateral feet, primarily articular or juxta-articular. There are cortical erosions and joint destruction, most Page 1 of 2 [facility] Patient Name: WILLIAM VAIL Sex: M : 1985 Exam Date: 04/24/2022 12:57 PM Exam Name: XR FOOT BILAT 3V Admitting Diagnosis(es): severely involving the right 1st MTP joint, right 4th PIP joint, right talar head, bases of the left 2nd-4th metatarsal bones, and bilateral mid feet. There are large bilateral ankle effusions and soft tissue prominence of the lateral portions of the mid feet (left greater than right). This appearance may be due to severe gout. Correlate with uric acid level and/or bone biopsy. 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 Procedures Surgical History Date Name Laterality Status Provider Name and Address Organization Details Recorded Time Toe completed Not Available [facility] 03/2022 16:42:38 procedure on elbow completed Not Available [facility] 05/08/2022 16:42:38 Imaging Results None recorded. Procedure Notes None [...] Heart rate Respiratory rate Body weight Systolic And Diastolic Provider Name and Address Organization Details Last Updated DateTime 3 30 kg/m2 180.34 cm 98 % 98 % 85 /min 14 /min 26170.3 6 g 113/65 mm[Hg] Not Available [facility] 3 16:42:52 Date Recorded Body height Heart rate Respiratory rate Oxygen saturation Oxygen saturation in Arterial blood by Pulse oximetry Systolic And Diastolic Provider Name and Address Organization Details Last Updated DateTime 3 180.34 cm 75 /min 14 /min 98 % 98 % 132/78 mm[Hg] Sury MENDOZA [facility] 3 14:15:45 Social History Question Answer Notes LastModified by [email or web address] Details LastModified Time Tobacco Smoking Status Current Every Day Smoker Not Available [facility] 05/08/2022 16:42:29 What Is Your Level Of Caffeine Consumption? Moderate [id number] Information not available 05/08/2022 What Was The Date Of Your Most Recent Tobacco Screening? 04/23/2022 [id number] Information not available 05/08/2022 Has Tobacco Cessation Counseling Been Provided? No [id number] Information not available 05/08/2022 Sex: Unknown Functional Status Question Answer Note LastModified by [email or web address] Details LastModified Time Do you use any illicit or recreational drugs? No [id number] Information not available 05/08/2022 Do you or have you ever used any other forms of tobacco or nicotine? No [id number] Information not available 05/08/2022 What is your level of alcohol consumption? None [id number] Information not available 05/08/2022 Mental Status None recorded. Family History Nothing Reported. Medical History Condition Response GOUT Y Past Encounters Encounter ID Performer Location Encounter Start Date Encounter Closed Date Diagnosis/Indication Diagnosis SNOMED-CT Code Diagnosis ICD10 Code Diagnosis Note [id number] Nehal Lopez DPM [facility] [place] [address] [facility] [address] [place] [address] 04/23/2022 00:00:00 04/23/2022 15:17:53 [id number] Nehal Lopez DPM [facility] [place] [address] [facility] [address] [place] [address] 06/13/2022 14:00:20 07/05/2022 15:51:10 Gouty arthritis of ankle and/or foot 438849042 M10.079 May benefit from rheumatolo gy referralco ntinue restrictiv e dietno high protein mealspatie nt to stay hydrated with waterwatch feet daily for open wounds infection if present seek medical attention immediatel ycontinue indomethac infollow-u p as needed Gouty tophus 391575133 M 1A.9XX1 as above Pain in both feet 944352 1343 3173686 M79.671 M79.672 as above Health Concerns Section Related Observation LastModified by Organization Detai ls LastModified Time None Recorded Concern Status LastModified by Organization Details LastModified Time None Recorded Advance Directives Directive None Recorded Payers Insurance Date Sequence Insurance Name Policy Number Policy Yoon Covered Member ID Yoon Member ID Guarantor Name 07/05/2022 1 [facility] - DOS ON OR AFTER 20 (MEDICAID REPLACEMENT - HMO) William Vail [id number] William Vail
--- OUTSIDE RECORDS SUMMARY | 2024-10-04 15:03 | XMS_ITS | Clinical Summary ---
Author Organization [facility] Address [facility] [place] [address] Care Team Providers Care Aids Nurse Name Role Phone Candice Shane MD Primary Care Provider [phone] Allergies No known active allergies Medications CAROL, [...] 3:49 PM CDT Height 180.3 cm (5' 11) 10/23/2023 3:49 PM CDT Body Mass Index 33.47 10/23/2023 3:49 PM CDT Plan of Treatment Health Maintenance Due Date Last Done Comments Annual Physical 1989 DTaP, Tdap and Td Vaccines ( 1 - Tdap) 2005 Hepatitis B Vaccines (1 of 3 - 19+ 3-dose series) 2005 Pneumococcal Vaccine: Pediatrics (0 to 5 Years) and At-Risk Patients (6 to 49 Years) (1 of 2 - PCV) 2005 HPV Vaccines (1 - 3-dose SCD M series) 2013 COVID-19 Vaccine (2023-2 5 season) 2023 Hepatitis C Completed 06/21/2022, 04/10/2020, 04/10/2020 Meningococcal B Vaccine Aged Out No l [...] upon discharge from hospital Lifestyle No Swathi Howell RN Insurance [employer] Advance Directives * Full Code (Latest Code Status on File) Date Activated Date Inactivated Comments 10/23/2023 10:53 PM 10/24/2023 5:54 PM Care Teams Aids Nurse Relationship Specialty Start Date End Date Candice Shane MD [address] [place] [address] PCP - General FAMILY PRACTICE 10/24/23
--- OUTSIDE RECORDS SUMMARY | 2024-10-04 15:03 | XMS_ITS | Encounter Summary ---
Author Organization [facility] Healthcare Address [address] [place] [address] Care Team Providers Care Aircraft Riveter Name Role Phone Jony Stoll MD Unavailable [phone] Haydee Singh MD Unavailable Miscellaneous, Not In File Primary Care Provider Unavailable Encounter Details Date Type Department Care Team (Late st Contact Info) Description 07/02/2024 [facility] Post Discharge Follow up phone call [facility] [address] [place] [address] [phone] Barbara Cherry RN Social History Tobacco Use Types Packs/Day Years Used Date Smoking Tobacco: Every Day Cigarettes 0.3 15 Smokeless Tobacco: Never Alcohol Use Standard Drinks/Week Comments Never 0 [...] materials from doctor or pharmacy Never 11/28/2022 [facility] Utilities Answer Date Recorded In the past 12 months has [employer], gas, oil, or water [employer] threatened to shut off services in your [...] often do you attend chur ch or latter-day services? Never 06/28/2024 Do you belong to any clubs o r organizations such as samaritan groups, unions, fraternal or athletic groups, or [...] in a residential (including now)? No 09/05/2022 Housing Stability Vital Sign Answer Leander e Recorded In the last 12 months, was t here a time when you were not able to pay the mortgage or rent on time? No 06/28/2024 In the past 12 months, how m any times have you moved where you were living? 0 06/28/2024 At any time in the past 12 m ont, were you homeless or living in a residential (including now)? 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 Gender Identity Not on file Sexual Orientation Not on file documented as of this encounter Plan of Treatment Not on file documented as of this encounter Visit Diagnoses Not on filedocumented in this encounter Care Teams Aircraft Riveter Relationship Specialty Start Date End Date Miscellaneous, Not In File PCP - General 06/26/24 Jony Stoll MD [address] [facility] [address] [facility] [address] [place] [address] Surgeon Orthopedic Surgery 08/15/22 Haydee Singh MD [address] [facility] [address] [place] [address] Consulting Physician Family Medicine 10/15/22 documented as of this encounter
--- OUTSIDE RECORDS SUMMARY | 2024-10-04 15:03 | XMS_ITS | Clinical Summary ---
Author Organization [facility] Address [address] [place] [address] Care Team Providers Care Multi Disciplined Language Analyst Name Role Phone Unavailable Primary Care Provider Unavailabl e Source Comments [facility],non-owned Affiliates and Associated Physician Practices is amultiple site organization consisting of ambulatory clinics and hospital sitesin [place], [place], [place] and [place]. This disclosure is being madepursuant to the Care Everywhere program and may not contain all information available regarding this patient. Last updated 17.[facility] Allergies No known active allergies Medications * Be aware that medications may not be up to date on this document. Alwaysverify current medications with the patient. allopurinol (ZYLOPRIM) 300 MG tablet Take 300 [...] Date Smoking Tobacco: Every Day Cigarettes 0.5 27.5 Started: 04/06/1997 Smokeless Tobacco: Never Tobacco Cessation:Ready [...] at Not on file Legal Sex Male 9:53 AM CDT Gender Identity Not on file Sexual Orientation Not on file Last Filed Vital Signs Vital Sign Reading Time Taken Comments Blood Pressure 100/57 04/12/2020 4:03 PM CLUTCH ASSEMBLER Pulse 63 04/12/2020 4:03 PM CLUTCH ASSEMBLER Temperature 36.2 C (97.2 F) 04/12/2020 4:03 PM CLUTCH ASSEMBLER Respiratory Rate 16 04/12/2020 4:03 PM CLUTCH ASSEMBLER Oxygen Saturation 100% 04/12/2020 4:03 PM CLUTCH ASSEMBLER Inhaled Oxygen Concentration 21% 04/12/2020 1 1:30 AM CLUTCH ASSEMBLER Weight 96.2 kg (212 lb) 04/06/2020 3:20 AM CLUTCH ASSEMBLER Height 180.3 cm (5' 11) 04/06/2020 3:20 AM CLUTCH ASSEMBLER Body Mass Index 29.57 04/06/2020 3:20 AM CLUTCH ASSEMBLER Plan of Treatment Health Maintenance Due Date Last Done Comments DTAP/TDAP/TD VACCINES (1 - Tdap) 2005 HEPATITIS B VACCINE (1 of 3 - 19+ 3-dose series) 2005 PNEUMOCOCCAL VACCINE (1 of 2 - PCV) 2005 HPV VACCINE (1 - 3-dose SCDM series) 2013 COVID-19 VACCINE (1 - 2023-2 5 season) 2023 DEPRESSION SCREENING 03/10/2024 INFLUENZA VACCINE (#1) 2024 ZOSTER VACCINE (1 of 2) 02/10/2036 HIV [...] W RFLX PCR Routine 04/10/2020 9:48 AM CLUTCH ASSEMBLER HIV-1 HIV-2 ANTIBODY + HIV P24 AG PANEL Routine 04/06/2020 8:48 AM CLUTCH ASSEMBLER Chest pain, unspecified type from Last 3 Months or Most Recently Relevant to Health Maintenance Results * HEPATITIS C ANTIBODY W RFLX PCR (04/10/2020 9:48 AM CLUTCH ASSEMBLER) Hepatitis C Antibody <0.1 0.0 - 0.9 s/co ratio 04/11/2020 10:09 AM CLUTCH ASSEMBLER [facility] ([facility]) Blood BLOOD SPECIMEN / Unknown Venipuncture / Unknown 04/10/2020 9:48 AM CLUTCH ASSEMBLER 04/10/2020 9:51 AM CLUTCH ASSEMBLER Narrative [facility] ([facility]) - 04/11/2020 10:09 AM CLUTCH ASSEMBLER Performed at: - [facility] [id number] [place], [place] [id number] Crown Perforator Operator: Gokul Bravo PhD, Phone: [phone] us Tyrell Peterson MD LAB - CHEMISTRY ORDERABLES Fi nal Result Performing Organization Address City/[facility] de Phone Number [facility] ([facility]) [address] [place] [address] * HIV-1 HIV-2 ANTIBODY + HIV P24 AG PANEL (04/06/2020 8:48 AM CLUTCH ASSEMBLER) Pathologist [facility] HIV1/2 Ab + P24 Ag Non Reactive Non Reactive 04/06/2020 9:37 AM CLUTCH ASSEMBLER [facility] Blood BLOOD SPECIMEN / Unknown Venipuncture / Unknown 04/06/2020 8:48 AM CLUTCH ASSEMBLER 04/06/2020 8:55 AM CLUTCH ASSEMBLER Narrative [facility] - 04/06/2020 9:37 AM CLUTCH ASSEMBLER No Laboratory evidence of HIV infection. us Aldo Esqueda MD LAB - CHEMISTRY ORDERABLES Fin al Result [facility] [address] [place] [address] from Last 3 Months or Most Recently Relevant to Health Maintenance Insurance [facility] [address] Advance Directives * Full Code (Latest Code Status on File) Date Activated Date Inactivated Comments 04/06/2020 3:40 AM 04/12/2020 6:16 PM * Full Code Date Activated Date Inactivated Comments 04/06/2020 3:26 AM 04/06/2020 3:40 AM
--- OUTSIDE RECORDS SUMMARY | 2024-10-04 15:03 | XMS_ITS | Encounter Summary ---
Author Organization [facility] Address [facility] [place] [address] Care Team Providers Care Real Estate Inspector Name Role Phone Sagar Yoo MD Primary Care Provider [phone] None, Provider Primary Care Provider Candice Malone MD Primary Care Provider [phone] Encounter Details Date Type Department Care Team (Latest Contact Info) Description 11/21/2017 [facility] Christian Matt MD Social History [...] on filedocumented in this encounter Care Teams Real Estate Inspector Relationship Specialty Start Date End Date Sagar Yoo MD [address] [address] PCP - General 07/05/16 10/22/23 None, ProviderMD PCP - General UNKNOWN PHYSICIAN SPECIALTY 10/23/23 10/23/23 Candice Shane MD [address] [place] [address] PCP - General FAMILY PRACTICE 10/24/23 documented as of this encounter
[2024-10-04 15:04] VITALS: BP 115/91; PULSE 98; RESP 20; TEMP 36.6; O2SAT 98
--- OUTSIDE RECORDS SUMMARY | 2024-10-04 15:04 | XMS_ITS | Clinical Summary ---
Author Organization [facility] Address [address] [place] [address] Care Team Providers Care Manager Risk Management Name Role Phone Jony Stoll MD Unavailable [phone] Haydee Singh MD Unavailable Miscellaneous, Not In [...] materials from doctor or pharmacy Never 11/28/2022 [facility] Utilities Answer Date Recorded In the past 12 months has e [employer], gas, oil, or water [employer] threatened to shut off services in your [...] week 06/28/2024 How often do you attend [facility] or muslim services? Never 06/28/2024 Do you belong to any clubs o r organizations such as caodaism groups, unions, fraternal or athletic groups, or [...] place to sleep or slept in a correction (including now)? No 09/05/2022 Housing Stability Vital Sign Answer Leander e Recorded In the last 12 months, was t here a time when you were not able to pay the mortgage or rent on time? No 06/28/2024 In the past 12 months, how m any times have you moved where you were living? 0 06/28/2024 At any time in the past 12 m [facility], were you homeless or living in a correction (including now)? 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.] last revised on 19. Testing performed by: [facility], [address] [place] [address], [place]., [address] Hep B core IgM Nonreactive Nonreactive C TRAVISER DAMI (MIRANDA) Comment: Interpretive Data If HepB Core IgM Ab is reported as Equivocal, a new sample should be drawn in two weeks for testing. Current interpretive data was last revised on 19. Testing performed by: [facility], [address] [place] [address]., [id number] Hep C Ab Nonreactive Nonreactive LADONNA LOMAX [...] last revised on 2019. Testing performed by: [facility], [address] [place] [address]., [id number] HepBsAg Nonreactive Nonreactive LADONNA LOMAX (MIRANDA) Comment:Testing performed by : [facility], [address] [place] [address]., [id number] Blood 06/27/2024 7:11 AM CDT 06/27/2024 1:38 PM CDT Opal Tadeo MD LAB MICROBIOLOGY - GENE RAL ORDERABLES Final Result LADONNA LOMAX (MIRANDA) [address] [facility] Department [place] [address] from Last 3 Months or Most Recently Relevant to Health Maintenance Insurance [facility] Advance Directives For more information, please contact: [phone] * Full Code (Latest Code Status on [...] cardioversionNo internal / external pacemaker Care Teams Manager Risk Management Relationship Specialty Start Date End Date Miscellaneous, Not In File PCP - General 06/26/24 Jony Stoll MD [address] [facility] [address] [place] [address] Surgeon Orthopedic Surgery 08/15/22 Haydee Singh MD [address] [place] [address] [address] [place] [address] Consulting Physician Family Medicine 10/15/22
--- NOTE | 2024-10-04 15:17 | ED_ITS ---
[facility] - General Adult General Chief complaint: Abdominal Pain Stated complaint: Abdominal pain History of Present Illness HPI narrative: patient is a 39-year-old male, past medical history significant for gout, presents to express care with complaints of diffuse low abdominal pain has been ongoing for the past 5-6 days. he denies eliciting the pain by movement, eating or urinating. He reports he is having normal bowel movements, without hematochezia or melena. States he is urinating 8 denies times a day but denies dysuria. He has no flank pain, denies trauma, he does have history of similar symptoms in the past, for which he was evaluated here in August of last year and subsequently transferred to the emergency department for more diagnostic workup, given the limitations the urgent care. He states he believes he was told his gallbladder was bad at that time and had it removed. He states he is drinking fluids well, including Gatorade or Powerade, water, apple juice and occasional soda. He eats 1 meal a day at dinnertime. This is his normal eating pattern and has not changed since his symptoms began. He has not attempted any medication at home for symptom relief. He has not traveled, he denies any additional associated symptoms or modifying factors. Related Data Home Medications ?Medication ?Instructions ?Recorded ?Confirmed ?Last Taken ?Type allopurinol 100 mg tablet 100 mg PO DAILY 07/07/22 09/05/23 Unknown History folic acid 1 mg tablet 1 mg PO DAILY 07/07/22 09/05/23 Unknown History methotrexate sodium 7.5 mg tablet 7.5 mg PO DAILY 08/18/23 09/05/23 Unknown History (Trexall) adalimumab-ryvk 40 mg/0.4 mL mg subcut 10/04/24 Unknown History subcutaneous auto-injector kit ([employer](CF) Autoinjector) probenecid 500 mg tablet mg 10/04/24 Unknown History Allergies Allergy/AdvReac Type Severity Reaction Status Date / Time No Known Allergies Allergy Verified 09/05/23 12:18 Review of Systems Gastrointestinal: Gastrointestinal: Reports as per [facility] Past Medical History Medical History Proximal phalanx fracture of finger Gout Surgical History Surgical History H/O hand surgery Family History Family History Mother Family history non-contributory Social History Social History Smoking packs per day: 0.5 Smoking cigarettes per day: 10.0 Smoking status: Current every day smoker Alcohol intake: never Substance use: never Living arrangements: with family Gender identity (if verbalized by the patient): Male Spiritual care concerns: No Exam Const: General: no acute distress and alert Nutritional Appearance: well nourished and obese Orientation/consciousness: patient oriented x3 Other: Patient appears older than stated age and disheveled, the cigarette smoke as noted in the room HENMT: Head: normal to inspection Ears: external ears normal and TM's normal bilaterally Face/Nose/Sinus: Normal external nose present Face and sinus: normal facial exam Mouth: Yes Normal oral and palatal mucosa present Eyes: Conjunctivae: conjunctivae normal Pupils: Equal, round and reactive pupils present EOM: EOMs intact bilaterally Direct Ophthalmoscopy: no photophobia Neck: Neck: normal visual inspection, no lymphadenopathy and no meningeal signs Resp: Effort & Inspection: normal respiratory effort Auscultation: clear to auscultation bilaterally Cardio: Rate: regular rate Rhythm: regular rhythm GI: Other: abdomen is protuberant, there is no palpable mass or hernia, patient has mild diffuse lower abdominal/suprapubic tenderness, no percussive tenderness or palpable mass, no CVA tenderness to percussion no pain at McBurney's point Skin: General skin exam: normal color Rashes: no rashes Wounds: no wounds Neuro: General: patient oriented x3, moves all extremities, no meningeal signs, no focal motor deficits and CN's II-XI intact bilaterally Cranial nerves: Yes Nystagmus not present Extrem: Other: patient has deformities to his finger, primarily his right index finger, consistent with poorly healed old fracture (reported by patient) and chronic gout Psych: Mental Status: mental status grossly normal Affect: normal affect Course Course Emergency Course: patient is advised limitations of the urgent care and diagnosing acute abdominal discomfort. He does report urinary frequency is advised a plan to complete a urinalysis. He will provide a sample this time Level of Care: [facility] Visit ([id number]) Vital Signs Vital signs: Vital Signs Temperature 36.6 C 10/04/24 15:04 Pulse Rate 98 10/04/24 15:04 Respiratory Rate 20 10/04/24 15:04 Blood Pressure 115/91 H 10/04/24 15:04 Pulse Oximetry 98 10/04/24 15:04 Oxygen Delivery Room Air 10/04/24 15:04 Temperature 36.6 C 10/04/24 15:04 Pulse Rate 98 10/04/24 15:04 Respiratory Rate 20 10/04/24 15:04 Blood Pressure 115/91 H 10/04/24 15:04 Pulse Oximetry 98 10/04/24 15:04 Oxygen Delivery Room Air 10/04/24 15:04 Medical Decision Making MDM Narrative Medical decision making narrative: patient's urinalysis is remarkable for microscopic blood only. Otherwise negative. Patient is advised that his symptoms are nonspecific , though a kidney stone is higher possibility given microscopic hematuria. pain is currently localized to the lower abdomen without associated flank pain. Further diagnostic workup through required in the emergency department where they can complete serum laboratories and CT imaging is indicated. He has not attempted any modifying factors. He states he does not wish to go to the emergency room at this time as his last ER visit, he waited 10 hours before he was placed in an exam room. He does prefer to return home and try some Tylenol for his discomfort but also agrees to proceed to the ER if his pain worsens in any way, if he develops any new symptoms or fevers arise. Differential Diagnosis Differential Diagnosis: renal colic, colitis, UTI /cystitis Vital Signs Vital Signs: Vital Signs Temperature 36.6 C 10/04/24 15:04 Pulse Rate 98 10/04/24 15:04 Respiratory Rate 10/04/24 15:04 Blood Pressure 115/91 H 10/04/24 15:04 Pulse Oximetry 98 10/04/24 15:04 Oxygen Delivery Room Air 10/04/24 15:04 Temperature 36.6 C 10/04/24 15:04 Pulse Rate 98 10/04/24 15:04 Respiratory Rate 20 10/04/24 15:04 Blood Pressure 115/91 H 10/04/24 15:04 Pulse Oximetry 98 10/04/24 15:04 Oxygen Delivery Room Air 10/04/24 15:04 Lab Data Labs: Lab Results 10/04/24 Range/Units 15:24 POC Urine Color Dark POC Urine Clarity Clear POC Urine pH 5.5 POC Ur Specif [place] 1.020 POC Urine Protein Negative (Negative) POC Ur Glucose (UA) Negative (Negative) POC Urine Ketones Negative (Negative) POC Urine Blood Trace (Negative) POC Urine Nitrite Negative (Negative) POC Urine Bilirubin Negative (Negative) POC Urine Urobilinogen 0.2 POC U Leukocyte Esteras Negative (Negative) Discharge Plan Discharge Clinical Impression: Abdominal pain, lower Patient Disposition: Home Condition: Stable Instructions: Antibiotic Form, Abdominal Pain (ED) Additional Instructions: CONTINUE TO DRINK PLENTY OF FLUIDS, REST, TAKE TYLENOL DIRECTED [id number] FOR DISCOMFORT. IF YOUR PAIN PERSISTS, WORSENS OR IF FEVERS ARISE, PROCEED TO THE EMERGENCY ROOM IMMEDIATELY. Patient Language: Pashto Prescriptions: No Action hydrocodone-acetaminophen 5-325 mg tablet 1 - 2 tablet PO Q6H PRN (Reason: pain) Qty: 15 0RF probenecid 500 mg tablet adalimumab-ryvk [[employer](CF) Autoinjector] 40 mg/0.4 mL auto-injector, kit SUBCUT allopurinol 100 mg tablet 100 mg PO DAILY folic acid 1 mg tablet 1 mg PO DAILY Trexall 7.5 mg tablet 7.5 mg PO DAILY Follow-up/Referrals: PHYSICIAN,[employer]ATOR [Primary Care Provider] -
[2024-10-04 15:31] LABS: EDUAAPPEAR Clear; EDUABILI Negative (Negative); EDUABLOOD Trace (Negative); EDUACOLOR1 Dark; EDUAGLUCOSE Negative (Negative); EDUAKETONE Negative (Negative); EDUALEUKO Negative (Negative); EDUANITRATE Negative (Negative); EDUAPH 5.5; EDUAPROTEIN Negative (Negative); EDUASPGRAVITY 1.020; EDUAUROBILI 0.2
== END 2024-10-04 15:44 | disposition home or self-care (01) ==
PROVIDERS: Emergency Provider Nurse Practitioner Family
DX: R10.30 Lower abdominal pain, unspecified (principal); F17.210 Nicotine dependence, cigarettes, uncomplicated; M10.9 Gout, unspecified
CPT/HCPCS: 81003; 99212; G0463